=== PATIENT | male | born 1945 | race Caucasian/White ===

== ENCOUNTER → 2018-03-21 13:15 | Outpatient (CLI) | payer MEDICARE, OTHER, SELFPAY | PROVIDERS: Visit Provider Physician Assistant | DX: S41.101A Unspecified open wound of right upper arm, initial encounter (principal) | CPT/HCPCS: 87070; 87205 ==

== ENCOUNTER 2018-11-24 12:20 | Emergency (ER) | payer MEDICARE, OTHER, SELFPAY ==
[2018-11-24] VITALS (7 sets, daily range): BP systolic 136–172; BP diastolic 82–97; PULSE 63–75; RESP 10–20; TEMP 36.6; O2SAT 94–99; BMI 30.8
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
[2018-11-24 13:02] LABS: Add Manual Diff / Slide Review NO; Basophils Absolute Auto 0 /uL (0-100); Basophils Percent Auto 0.5 % (0-2); Eosinophils Absolute Auto 300 /uL (0-450); Eosinophils Percent Auto 3.8 % (2-4); Hemoglobin 18.4 g/dL (13.5-17.5); Lymphocytes Absolute Auto 1700 /uL (1100-4500); Lymphocytes Percent Auto 19.2 % (25-40); Mean Corpuscular HGB Conc 35.5 % (30-36); Mean Corpuscular Hemoglobin 33.1 PG (26-34); Mean Corpuscular Volume 93.4 fL (80-100); Monocytes Absolute Auto 800 /uL (0-900); Monocytes Percent Auto 8.9 % (3-14); Neutrophils Absolute Auto 6100 /uL (1500-7000); Neutrophils Percent Auto 67.6 % (50-75); Platelet Count 309 X10^3/uL (150-400); Red Blood Cell Count 5.57 X10^6/uL (4.5-5.9); Red Cell Distribution Width 15.8 % (11.6-14.8); White Blood Cell Count 9.1 X10^3/uL (4.5-11.0)
[2018-11-24] MEDS: ALBUTEROL/IPRATROPIUM 3 ML AMPUL INH (13:08)
[2018-11-24 13:32] LABS: B Type Natriuretic Peptide < 100 (<100)
[2018-11-24 13:38] LABS: D Dimer < 200 ng/mL (<230)
[2018-11-24] MEDS: ALBUTEROL 2.5 MG/3 ML NEB (ADULT) INH ×2 (13:39→13:53)
[2018-11-24 13:41] LABS: Alanine Aminotransferase 65 IU/L (21-72); Albumin 4.2 g/dL (3.5-5.0); Albumin Globulin Ratio 1.3 (1.0-2.8); Alkaline Phosphatase 98 U/L (38-126); Aspartate Aminotransferase 86 IU/L (17-59); BUN Creatinine Ratio 13.8 (6-22); Bilirubin Total 1.1 mg/dL (0.2-1.3); Blood Urea Nitrogen 11 mg/dL (9-20); Calcium 9.3 mg/dL (8.4-10.2); Carbon Dioxide 28 mmol/L (22-32); Chloride 102 mmol/L (98-107); Estimated Glomerular Filt Rate > 60.0 mL/min (>60); Globulin 3.2 g/dL (1.7-4.1); Glucose 107 mg/dL (80-110); HEMOLYSIS < 15 (0-50); Potassium 5.3 mmol/L (3.4-5.1); Sodium 138 mmol/L (137-145); Total Protein 7.4 g/dL (6.3-8.2)
[2018-11-24 13:42] LABS: Creatine Kinase 86 U/L (55-170)
[2018-11-24 13:53] LABS: Troponin I < 0.012 ng/mL (0.01-0.034)
[2018-11-24] MEDS: methylPREDNISolone 125 MG/2 ML VIAL IV (14:02)
--- NOTE | 2018-11-24 14:56 | DI.RAD.S_ITS ---
PROCEDURE: XR CHEST 1V INDICATIONS: short of breath TECHNIQUE: One view of the chest was acquired. COMPARISON: None. FINDINGS: Surgical changes and devices: None. Lungs and pleura: Lungs are clear. No pleural effusions or pneumothorax. Mediastinum: Mediastinal contours appear normal. Heart size is normal. Bones and chest wall: No suspicious bony lesions. Overlying soft tissues appear unremarkable. IMPRESSION: No acute process. Dictated by: Tacho Armstrong M.D. on 11/24/2018 at 15:25 Approved by: Tacho Armstrong M.D. on 11/24/2018 at 15:26
== END 2018-11-24 15:29 | disposition home or self-care (01) ==
PROVIDERS: Emergency Provider Emergency Medicine
DX: J44.9 Chronic obstructive pulmonary disease, unspecified (principal); I10 Essential (primary) hypertension
CPT/HCPCS: 36591; 71045; 80053; 82550; 83735; 83880; 84484; 85025; 85379; 93005; 94150; 94640; 96374; 99283; 99285; J2930; J7613

== ENCOUNTER → 2019-01-06 12:39 | Outpatient (CLI) | payer MEDICARE, OTHER, SELFPAY ==
--- NOTE | 2019-01-06 12:42 | DI.RAD.S_ITS ---
PROCEDURE: XR MANDIBLE MIN 4V INDICATIONS: jaw joint pain LEFT SIDE TECHNIQUE: 4 views of the mandible were acquired. COMPARISON: None. FINDINGS: Bones: No fractures or dislocations. No suspicious bony lesions. Soft tissues: Visualized sinuses appear clear. No suspicious soft tissue densities. IMPRESSION: No abnormality found. Dictated by: Lyndon Huang M.D. on 01/06/2019 at 13:34 Approved by: Lyndon Huang M.D. on 01/06/2019 at 13:35
== END ==
PROVIDERS: Visit Provider Nurse Practitioner Family
DX: R68.84 Jaw pain (principal)
CPT/HCPCS: 70110

== ENCOUNTER → 2019-01-06 12:53 | Outpatient (CLI) | payer MEDICARE, OTHER, SELFPAY | PROVIDERS: Visit Provider Nurse Practitioner Family | DX: R68.84 Jaw pain (principal) ==

== ENCOUNTER → 2019-08-30 11:00 | Outpatient (CLI) | payer MEDICARE, OTHER, SELFPAY ==
[2019-08-30 12:40] LABS: Hematocrit 44.5 % (41-53); Hemoglobin 15.7 g/dL (13.5-17.5); Mean Corpuscular HGB Conc 35.3 % (30-36); Mean Corpuscular Volume 96.3 fL (80-100); Platelet Count 230 X10^3/uL (150-400); Red Blood Cell Count 4.62 X10^6/uL (4.5-5.9); Red Cell Distribution Width 14.5 % (11.6-14.8)
[2019-08-30 13:13] LABS: Alanine Aminotransferase 28 IU/L (<50); Albumin 4.3 g/dL (3.5-5.0); Albumin Globulin Ratio 1.5 (1.0-2.8); Alkaline Phosphatase 91 U/L (38-126); Aspartate Aminotransferase 39 IU/L (17-59); Bilirubin Total 0.9 mg/dL (0.2-1.3); Blood Urea Nitrogen 20 mg/dL (9-20); Carbon Dioxide 27 mmol/L (22-32); Chloride 100 mmol/L (98-107); Cholesterol 158 mg/dL (140-199); Estimated Glomerular Filt Rate > 60.0 mL/min (>60); Globulin 2.9 g/dL (1.7-4.1); Glucose 114 mg/dL (80-110); HDL Cholesterol 62 mg/dL (40-60); HEMOLYSIS < 15 (0-50); LDL Cholesterol Calculated 62 mg/dL (<100); Potassium 5.1 mmol/L (3.4-5.1); Sodium 138 mmol/L (137-145); Total Protein 7.2 g/dL (6.3-8.2); Triglycerides 169 mg/dL (35-150)
[2019-08-30 13:42] LABS: Prostate Specific Antigen Scrn 0.902 ng/mL (0.1-4.0)
[2019-08-30 15:25] LABS: Creatinine Urine Random 168.4 mg/dL
[2019-08-30 15:35] LABS: Microalbumi Creatinin Ratio Ur 3.5 ug/mg CR (<30); Microalbumin Urine Random < 0.6 mg/dL (0-1.6)
[2019-08-30 20:46] LABS: Hemoglobin A1C% w Est Avg Glu 5.4 % (4.0-6.0)
== END ==
PROVIDERS: Referring Provider Nurse Practitioner Family
DX: Z12.5 Encounter for screening for malignant neoplasm of prostate (principal); E78.2 Mixed hyperlipidemia; I10 Essential (primary) hypertension; R73.01 Impaired fasting glucose
CPT/HCPCS: 36415; 80053; 80061; 82043; 82570; 83036; 85027; G0103

== ENCOUNTER → 2020-05-22 12:37 | Outpatient (CLI) | payer MEDICARE, OTHER, SELFPAY ==
[2020-05-22 13:10] LABS: Hematocrit 46.6 % (41-53); Hemoglobin 15.5 g/dL (13.5-17.5); Mean Corpuscular HGB Conc 33.4 % (30-36); Mean Corpuscular Hemoglobin 32.8 PG (26-34); Mean Corpuscular Volume 98.3 fL (80-100); Platelet Count 207 X10^3/uL (150-400); Red Blood Cell Count 4.74 X10^6/uL (4.5-5.9); White Blood Cell Count 9.1 X10^3/uL (4.5-11.0)
[2020-05-22 14:06] LABS: BUN Creatinine Ratio 21.1 (6-22); Blood Urea Nitrogen 15 mg/dL (9-20); Carbon Dioxide 29 mmol/L (22-32); Chloride 102 mmol/L (98-107); Estimated Glomerular Filt Rate > 60.0 mL/min (>60); Glucose 135 mg/dL (80-110); HEMOLYSIS < 15 (0-50); Potassium 3.8 mmol/L (3.4-5.1); Sodium 138 mmol/L (137-145)
== END ==
PROVIDERS: PCP Nurse Practitioner Family; Referring Provider Nurse Practitioner Family; Visit Provider Nurse Practitioner Family
DX: I10 Essential (primary) hypertension (principal)
CPT/HCPCS: 36415; 80048; 85027

== ENCOUNTER → 2020-05-23 09:04 | Outpatient (CLI) | payer MEDICARE, OTHER, SELFPAY | PROVIDERS: Visit Provider Nurse Practitioner Family | DX: R73.09 Other abnormal glucose (principal) | CPT/HCPCS: 83036 ==

== ENCOUNTER → 2021-03-19 13:44 | Outpatient (CLI) | payer MEDICARE, OTHER, SELFPAY ==
[2021-03-19 17:15] LABS: Hemoglobin 17.3 g/dL (13.5-17.5); Mean Corpuscular HGB Conc 33.9 % (30-36); Mean Corpuscular Hemoglobin 33.7 PG (26-34); Mean Corpuscular Volume 99.4 fL (80-100); Platelet Count 194 X10^3/uL (150-400); Red Blood Cell Count 5.13 X10^6/uL (4.5-5.9); Red Cell Distribution Width 13.9 % (11.6-14.8); White Blood Cell Count 9.9 X10^3/uL (4.5-11.0)
[2021-03-19 17:57] LABS: Alanine Aminotransferase 31 IU/L (<50); Albumin 4.3 g/dL (3.5-5.0); Albumin Globulin Ratio 1.4 (1.0-2.8); Alkaline Phosphatase 96 U/L (38-126); Aspartate Aminotransferase 59 IU/L (17-59); BUN Creatinine Ratio 16.1 (6-22); Bilirubin Total 1.3 mg/dL (0.2-1.3); Blood Urea Nitrogen 10 mg/dL (9-20); Calcium 9.4 mg/dL (8.4-10.2); Carbon Dioxide 30 mmol/L (22-32); Chloride 97 mmol/L (98-107); Cholesterol 172 mg/dL (140-199); Estimated Glomerular Filt Rate > 60.0 mL/min (>60); Glucose 93 mg/dL (80-110); HDL Cholesterol 94 mg/dL (40-60); HEMOLYSIS < 15 (0-50); LDL Cholesterol Calculated 54 mg/dL (<100); Potassium 3.8 mmol/L (3.4-5.1); Sodium 136 mmol/L (137-145); Total Protein 7.3 g/dL (6.3-8.2); Triglycerides 121 mg/dL (35-150); Uric Acid 6.4 mg/dL (3.5-8.5)
[2021-03-19 18:29] LABS: TSH w/ Reflex to FT4 4.37 uIU/mL (0.47-4.68)
== END ==
PROVIDERS: PCP Nurse Practitioner Family; Referring Provider Nurse Practitioner Family; Visit Provider Nurse Practitioner Family
DX: Z00.00 Encounter for general adult medical examination without abnormal findings (principal); I10 Essential (primary) hypertension; M10.9 Gout, unspecified; E78.2 Mixed hyperlipidemia; R63.4 Abnormal weight loss
CPT/HCPCS: 36415; 80053; 80061; 84443; 84550; 85027

== ENCOUNTER → 2021-03-20 13:09 | Outpatient (CLI) | payer MEDICARE, OTHER, SELFPAY ==
--- NOTE | 2021-03-20 13:10 | DI.RAD.S_ITS ---
PROCEDURE: XR CHEST 2V INDICATIONS: weight loss TECHNIQUE: 2 views of the chest were acquired. COMPARISON: [facility], CR, XR CHEST 1V, 11/24/2018, 15:02. FINDINGS: Surgical changes and devices: None. Lungs and pleura: Scattered subsegmental scarring and/or atelectasis. No acute consolidation. No pleural effusions or pneumothorax. Mediastinum: Mediastinal contours are normal. Heart size is normal. Bones and chest wall: No suspicious bony abnormalities. Soft tissues appear unremarkable. IMPRESSION: No acute disease. Dictated by: Andres Morel M.D. on 03/20/2021 at 13:31 Approved by: Andres Morel M.D. on 03/20/2021 at 13:32
--- NOTE | 2021-03-20 13:10 | DI.RAD.S_ITS ---
PROCEDURE: XR HIP W PEL IF DONE TOY MIN 4V INDICATIONS: bilateral hip pain TECHNIQUE: AP pelvis with lateral view(s) of the bilateral hip(s). COMPARISON: None. FINDINGS: Bones: No fractures or dislocations. Moderate superior femoroacetabular joint space loss on the right with acetabular spurring and sclerosis. Similar, mild changes on the left. Femoral head shapes are normal. Incidental note is made of severe facet arthropathy in the L5-S1 level in the lumbar spine. Pelvic ring appears intact. No suspicious bony lesions. Soft tissues: The visualized bowel gas pattern is normal. No suspicious soft tissue calcifications. Moderate atherosclerotic calcification. IMPRESSION: 1. 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 Dictated by: Joy Mccullough M.D. on 03/20/2021 at 15:02 Approved by: Joy Mccullough M.D. on 03/20/2021 at 15:04
== END ==
PROVIDERS: PCP Nurse Practitioner Family; Referring Provider Nurse Practitioner Family; Visit Provider Nurse Practitioner Family
DX: J44.9 Chronic obstructive pulmonary disease, unspecified (principal); M25.551 Pain in right hip; M25.552 Pain in left hip; R63.4 Abnormal weight loss; M16.0 Bilateral primary osteoarthritis of hip
CPT/HCPCS: 71046; 73522

== ENCOUNTER → 2021-08-05 14:53 | Outpatient (CLI) | payer MEDICARE, OTHER, SELFPAY ==
[2021-08-05 15:57] LABS: Alanine Aminotransferase 34 IU/L (<50); Albumin 4.3 g/dL (3.5-5.0); Albumin Globulin Ratio 1.5 (1.0-2.8); Alkaline Phosphatase 78 U/L (38-126); Aspartate Aminotransferase 50 IU/L (17-59); BUN Creatinine Ratio 16.2 (6-22); Bilirubin Total 1.2 mg/dL (0.2-1.3); Blood Urea Nitrogen 11 mg/dL (9-20); Calcium 9.7 mg/dL (8.4-10.2); Carbon Dioxide 33 mmol/L (22-32); Chloride 99 mmol/L (98-107); Estimated Glomerular Filt Rate > 60.0 mL/min (>60); Globulin 2.9 g/dL (1.7-4.1); Glucose 110 mg/dL (80-110); HEMOLYSIS 18 (0-50); Potassium 4.4 mmol/L (3.4-5.1); Sodium 138 mmol/L (137-145); Total Protein 7.2 g/dL (6.3-8.2)
[2021-08-05 16:26] LABS: TSH w/ Reflex to FT4 3.64 uIU/mL (0.47-4.68)
[2021-08-05 17:18] LABS: Add Manual Diff / Slide Review NO; Basophils Absolute Auto 0 /uL (0-100); Basophils Percent Auto 0.6 % (0-2); Eosinophils Absolute Auto 100 /uL (0-450); Eosinophils Percent Auto 0.9 % (2-4); Hematocrit 50.4 % (41-53); Hemoglobin 17.2 g/dL (13.5-17.5); Lymphocytes Absolute Auto 1600 /uL (1100-4500); Lymphocytes Percent Auto 19.4 % (25-40); Mean Corpuscular HGB Conc 34.1 % (30-36); Mean Corpuscular Hemoglobin 34.7 PG (26-34); Mean Corpuscular Volume 101.6 fL (80-100); Monocytes Absolute Auto 1000 /uL (0-900); Monocytes Percent Auto 12.4 % (3-14); Neutrophils Absolute Auto 5600 /uL (1500-7000); Neutrophils Percent Auto 66.7 % (50-75); Platelet Count 186 X10^3/uL (150-400); Red Blood Cell Count 4.96 X10^6/uL (4.5-5.9); Red Cell Distribution Width 14.1 % (11.6-14.8); White Blood Cell Count 8.5 X10^3/uL (4.5-11.0)
== END ==
PROVIDERS: PCP Nurse Practitioner Family; Referring Provider Family Medicine; Visit Provider Family Medicine
DX: I48.92 Unspecified atrial flutter (principal); R00.2 Palpitations; R42 Dizziness and giddiness
CPT/HCPCS: 36415; 80053; 84443; 85025

== ENCOUNTER → 2021-12-29 08:41 | Outpatient (CLI) | payer MEDICARE, OTHER, SELFPAY ==
--- NOTE | 2021-12-29 08:43 | DI.ECHO.S_ITS ---
[facility]---------+ [facility] +---------+ : : [id number] : : : : [id number] : : : : Phone: [phone] Echocardiogram Report + + :Name: JENA PEMBERTON Study Date: 12/29/2021 Height: 73 in : :[facility] ReadingLocation: Weight: 240 lb : : Gender: Male BSA: 2.3 m2 : :: 1945 Age: 76 yrs BP: 128/80 mmHg: :Reason For Study: Arrhythmia : :Ordering Physician: : :CAMILLE ANDERSON Performed By: Bladimir Walker : :Referring: CAMILLE ANDERSON : + + Interpretation Summary The ejection fraction is estimated to be 55-60%. Unable to grade diastolic function. The right ventricle is normal in size and function. No significant valvular abnormalities. Unable to estimate PASP. Procedure: A two-dimensional transthoracic echocardiogram with color flow and Doppler was performed. The study quality was technically adequate. There is no prior echocardiogram noted for this patient. Left Ventricle: The left ventricle is normal in size and wall thickness. Left ventricular systolic function is normal. The ejection fraction is estimated to be 55-60%. There are no focal wall motion abnormalities. Diastolic function could not be accurately assessed due to unobtainable data. Right Ventricle: The right ventricle is normal in size and function. Atria: Both atria are normal in size. The interatrial septum grossly appears intact with no obvious evidence for an atrial septal defect. Mitral Valve: There is mild mitral annular calcification. There is no mitral regurgitation noted. Aortic Valve: The aortic valve is normal in structure and function. There is no aortic valve stenosis. No aortic regurgitation is present. Tricuspid Valve: The tricuspid valve is normal in structure and function. There is a trace or physiologic amount of tricuspid regurgitation. Pulmonary artery pressures cannot be estimated because of the lack of a measurable TR jet velocity. Pulmonic Valve: The pulmonic valve is not well seen, but is grossly normal. There is no pulmonic valvular regurgitation. Great Vessels: The aortic root is normal size. The dimensions of the ascending aorta are normal. The IVC is of normal diameter and collapses greater than 50% with a sniff. This suggests a low right atrial pressure of 3 mm Hg. Pericardium/ Pleura There is no pericardial effusion. There is no pleural effusion. MMode/2D Measurements & Calculations LVIDd: 4.4 cm LVOT diam: 2.1 cm LVIDs: 2.9 cm Ao root diam: 3.7 cm FS: 34.1 % asc Aorta Diam: 3.4 cm IVSd: 1.1 cm LVPWd: 0.90 cm LV amador. diameter/BSA (cm/m^2): 1.9 LV sys. diameter/BSA (cm/m^2): 1.2 LA dimension: 3.6 cm RA long axis: 5.3 cm LA A2 area: 17.9 cm2 LA A4 area: 23.7 cm2 LA length (vol): 5.4 cm LA vol: 66.2 ml LA vol index: 28.5 ml/m2 TAPSE_phl: 2.6 cm Doppler Measurements & Calculations Ao V2 max: 148.0 cm/sec LVOT Max Jimmy: 114.0 cm/sec Ao V2 mean: 107.0 cm/sec LV V1 max P.2 mmHg Ao max P.0 mmHg LV V1 VTI: 23.2 cm Ao mean P.0 mmHg GIULIA(I,D): 2.8 cm2 Ao V2 VTI: 28.8 cm GIULIA(V,D): 2.7 cm2 sev ratio: 0.81 GIULIA indexed to BSA (cm^2/m^2): 1.2 MV E max jimmy: 105.0 cm/sec SV(LVOT): 80.4 ml MV A max jimmy: 102.0 cm/sec MV E/A: 1.0 MV dec time: 0.25 sec AV VR_phl: 0.77 MV P1/2t-pr_phl: 72.0 msec GIULIA(VTI)/BSA_phl: 1.2 Reading Physician:02:50 PM
== END ==
PROVIDERS: PCP Nurse Practitioner Family; Referring Provider Internal Medicine Cardiovascular Disease; Visit Provider Internal Medicine Cardiovascular Disease
DX: I48.92 Unspecified atrial flutter (principal); R42 Dizziness and giddiness; R00.2 Palpitations
CPT/HCPCS: 93306

== ENCOUNTER 2022-02-21 21:06 | Emergency (ER) | payer MEDICARE, OTHER, SELFPAY ==
[2022-02-21 21:46] VITALS: BP 153/82; PULSE 81; RESP 17; TEMP 36.7; O2SAT 94; BMI 31.6
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
--- NOTE | 2022-02-21 23:39 | ED_ITS ---
HPI - Recheck/Abnormal Lab/Rx <Vik Murguia MD - Last Filed: 02/22/22 18:04> General Chief Complaint: Recheck/Abnormal Lab/Rx Stated Complaint: Large hematoma One day Post ablation procedure, Time Seen by Provider: 02/21/22 23:33 Source: patient Mode of arrival: Ambulatory History of Present Illness HPI narrative: Patient here for swelling and pain to the right groin. Patient is postop day 1 status post catheterization for atrial flutter by Dr. Rivero at [facility]. Patient was observed overnight. At their hospital and swelling did improve. Discharge this afternoon. However when he got home pain and swelling worsened. No numbness or tingling. Related Data Home Medications Medication Instructions Recorded Confirmed ipratropium 20 mcg-albuterol 100 1 puff inhalation QID PRN 11/29/18 08/05/21 mcg/actuation mist for inhalation (Combivent Respimat) propranolol 20 mg tablet 20 mg PO BID PRN 11/29/18 08/05/21 Previous Rx's Medication Instructions Recorded sildenafil 100 mg tablet (Viagra) 100 mg PO DAILY PRN erectile 11/29/18 dysfunction #3 tabs varicella-zoster glycoE [id number] 50 mcg IM ONCE #1 ea 11/29/18 adj(PF) 50 mcg/0.5 mL IM susp, kit (Shingrix (PF)) blood pressure cuff #1 ea 02/22/20 clindamycin phosphate 1 % topical 1 applictn topical DAILY #30 grams 02/22/20 gel atorvastatin 10 mg tablet 10 mg PO DAILY #90 tabs 03/19/21 budesonide-formoterol HFA 160 1 puff inhalation DAILY PRN copd 03/19/21 mcg-4.5 mcg/actuation aerosol #10.2 grams inhaler (Symbicort) fluticasone propionate 50 2 spray intranasal DAILY #9.9 mL 03/19/21 mcg/actuation nasal spray,suspension (Flonase Allergy Relief) lisinopril 5 mg tablet 5 mg PO DAILY #90 tabs 03/19/21 metoprolol succinate 25 mg 25 mg PO DAILY #30 tabs 08/05/21 tablet,extended release 24 hr albuterol sulfate 90 mcg/actuation See Rx Instructions .Route 02/09/22 aerosol inhaler .COMPLEX #8.5 grams Allergies Allergy/AdvReac Type Severity Reaction Status Date / Time pollen extracts Allergy Severe Difficulty Verified 08/05/21 14:03 Breathing cat dander Allergy Intermediate asthma Verified 08/05/21 14:03 yellow jacket Allergy Intermediate rash on Uncoded 08/05/21 14:03 neck Review of Systems <Vik Murguia MD - Last Filed: 02/22/22 18:04> Review of Systems Narrative: GENERAL: Denies chills, fatigue, malaise, fever, sweats. HEENT: Denies sinus pain, ear pain, sore throat RESPIRATORY: Denies dyspnea, cough CARDIOVASCULAR: Denies chest pain, palpitations GASTROINTESTINAL: Denies nausea, vomiting, abdominal pain : Denies dysuria, frequency, hematuria MUSCULOSKELETAL: denies muscle or bony pain SKIN: Denies rash, skin lesions NEUROLOGIC: Denies weakness, numbness ROS Unobtainable: All systems reviewed & are unremarkable except as noted in HPI and below Patient History <Vik Murguia MD - Last Filed: 02/22/22 18:04> Medical History Atrial flutter Bilateral hip pain (11/2019) COPD (chronic obstructive pulmonary disease) Food aversion (11/2019) Hyperactive gag reflex (11/2019) Hypertension Mixed hyperlipidemia Numbness Perioral dermatitis Red eye Runny nose (11/2019) Seasonal allergies Weight loss Social History Smoking Status: Former smoker Tobacco: How many years used: 48 second hand exposure: Yes (Dad smoked) alcohol intake: current (a couple glasses of wine every night) substance use type: marijuana (vape, couple times a week) Smoking Status: Former smoker alcohol intake frequency: 3 or more drinks per day Substance Use Type: marijuana Exam <Vik Murguia MD - Last Filed: 02/22/22 18:04> Narrative Exam Narrative: GENERAL: in no distress, not toxic not dyspneic HEAD: Normocephalic. EYES: Pupils equal round No scleral icterus. ENT: Mucous membranes moist. NECK: Trachea midline. CARDIOVASCULAR: Regular rate and rhythm without murmurs RESPIRATORY: Clear to auscultation. Breath sounds equal bilaterally. No wheezes, rales, or rhonchi. GASTROINTESTINAL: Abdomen soft, non-tender EXTREMITIES: Examination right lower extremity. Foot warm soft and pink. Strong pedal pulse. Foot light touch intact in toes. Large palpable hematoma in the right groin. Tender to touch. BACK: No flank tenderness. NEURO: AOx4. SKIN: Warm and dry PSYCH: Not anxious, is cooperative Initial Vital Signs Initial Vital Signs: Vital Signs Temperature 98.0 F 02/21/22 21:46 Pulse Rate 81 02/21/22 21:46 Respiratory Rate 17 02/21/22 21:46 Blood Pressure 153/82 H 02/21/22 21:46 Pulse Oximetry 94 02/21/22 21:46 Oxygen Delivery Method 02/21/22 21:46 <Agnieszka Lopez DO - Last Filed: 02/22/22 13:52> Initial Vital Signs Initial Vital Signs: Vital Signs Temperature 98.0 F 02/21/22 21:46 Pulse Rate 81 02/21/22 21:46 Respiratory Rate 17 02/21/22 21:46 Blood Pressure 153/82 H 02/21/22 21:46 Pulse Oximetry 94 02/21/22 21:46 Oxygen Delivery Method 02/21/22 21:46 Course <Vik Murguia MD - Last Filed: 02/22/22 18:04> Course Course Narrative: No new issues during course of stay February 22, 2022 at 7:00 a.m.. Sign out to Dr. Lopez, patient on waiting list for [facility]. For continuity of care. He is hemodynamically stable. 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 Decision to Admit Date: 02/21/22 Decision to Admit time: 23:41 Orders Ordered: ED Orders 02/22/22 09:50 US arterial duplex LE RT Stat 02/22/22 11:18 CBC Auto Diff [Complete Blood Count AUTO DIFF] Stat CMP [Comprehensive Metabolic Panel] Stat Discontinued Medications Hydromorphone HCl (Hydromorphone 1 Mg Inj) 1 mg IV NOW ONE Stop: 02/22/22 10:00 Last Admin: 02/22/22 10:02 Dose: 1 mg Documented By: KENDRA Hydromorphone HCl (Hydromorphone 1 Mg Inj) 1 mg IV NOW ONE Stop: 02/22/22 10:30 Last Admin: 02/22/22 10:42 Dose: 1 mg Documented By: KENDRA Midazolam HCl (Midazolam 2 Mg/2 Ml Vial) 2 mg IV NOW ONE Stop: 02/22/22 10:30 Last Admin: 02/22/22 10:48 Dose: Not Given Documented By: KENDRA Reevaluation(s) Reevaluation #1: Reviewed with patient and family. They understand need to transfer back to [facility] Time: 23:42 Consultations Consultation #1: Spoke with Cardiology Dr. Rodriguez, patient will need to be transferred back to [facility] for interventional radiology, regarding emergency department management no intervention indicated this time. No compression packing. Time: 23:42 Vital Signs Vital signs: Vital Signs - 8 hr 02/22/22 10:28 02/22/22 10:29 02/22/22 10:29 Pulse Rate 73 72 Respiratory Rate 13 12 Blood Pressure 138/69 Pulse Oximetry 95 95 Oxygen Delivery Method Oxygen Flow Rate 02/22/22 10:30 02/22/22 10:30 02/22/22 10:45 Pulse Rate 73 78 Respiratory Rate 14 12 Blood Pressure 139/64 Pulse Oximetry 95 96 Oxygen Delivery Method Room Air Oxygen Flow Rate 1.5 02/22/22 11:00 02/22/22 11:00 02/22/22 11:15 Pulse Rate 67 Respiratory Rate 11 L Blood Pressure 131/63 132/67 Pulse Oximetry 91 Oxygen Delivery Method Oxygen Flow Rate 02/22/22 11:15 02/22/22 11:30 02/22/22 11:30 Pulse Rate 76 78 Respiratory Rate 19 17 Blood Pressure 135/67 Pulse Oximetry 98 95 Oxygen Delivery Method Nasal Cannula Oxygen Flow Rate 1.5 02/22/22 11:45 02/22/22 11:45 02/22/22 12:00 Pulse Rate 71 Respiratory Rate 16 Blood Pressure 111/59 L 113/73 Pulse Oximetry 94 Oxygen Delivery Method Oxygen Flow Rate 02/22/22 12:00 02/22/22 12:15 02/22/22 12:15 Pulse Rate 84 79 Respiratory Rate 27 H 21 Blood Pressure 114/60 Pulse Oximetry 94 96 Oxygen Delivery Method Nasal Cannula Oxygen Flow Rate 1.5 02/22/22 12:30 02/22/22 12:30 02/22/22 12:45 Pulse Rate 87 Respiratory Rate 21 Blood Pressure 116/66 126/70 Pulse Oximetry 95 Oxygen Delivery Method Oxygen Flow Rate 02/22/22 12:45 Pulse Rate 84 Respiratory Rate 15 Blood Pressure Pulse Oximetry 92 Oxygen Delivery Method Nasal Cannula Oxygen Flow Rate 1.5 <Agnieszka Lopez, DO - Last Filed: 02/22/22 13:52> Orders Ordered: ED Orders 02/22/22 09:50 US arterial duplex LE RT Stat 02/22/22 11:18 CBC Auto Diff [Complete Blood Count AUTO DIFF] Stat CMP [Comprehensive Metabolic Panel] Stat Discontinued Medications Hydromorphone HCl (Hydromorphone 1 Mg Inj) 1 mg IV NOW ONE Stop: 02/22/22 10:00 Last Admin: 02/22/22 10:02 Dose: 1 mg Documented By: KENDRA Hydromorphone HCl (Hydromorphone 1 Mg Inj) 1 mg IV NOW ONE Stop: 02/22/22 10:30 Last Admin: 02/22/22 10:42 Dose: 1 mg Documented By: KENDRA Midazolam HCl (Midazolam 2 Mg/2 Ml Vial) 2 mg IV NOW ONE Stop: 02/22/22 10:30 Last Admin: 02/22/22 10:48 Dose: Not Given Documented By: KENDRA Vital Signs Vital signs: Vital Signs - 8 hr 02/22/22 10:28 02/22/22 10:29 02/22/22 10:29 Pulse Rate 73 72 Respiratory Rate 13 12 Blood Pressure 138/69 Pulse Oximetry 95 95 Oxygen Delivery Method Oxygen Flow Rate 02/22/22 10:30 02/22/22 10:30 02/22/22 10:45 Pulse Rate 73 78 Respiratory Rate 14 12 Blood Pressure 139/64 Pulse Oximetry 95 96 Oxygen Delivery Method Room Air Oxygen Flow Rate 1.5 02/22/22 11:00 02/22/22 11:00 02/22/22 11:15 Pulse Rate 67 Respiratory Rate 11 L Blood Pressure 131/63 132/67 Pulse Oximetry 91 Oxygen Delivery Method Oxygen Flow Rate 02/22/22 11:15 02/22/22 11:30 02/22/22 11:30 Pulse Rate 76 78 Respiratory Rate 19 17 Blood Pressure 135/67 Pulse Oximetry 98 95 Oxygen Delivery Method Nasal Cannula Oxygen Flow Rate 1.5 02/22/22 11:45 02/22/22 11:45 02/22/22 12:00 Pulse Rate 71 Respiratory Rate 16 Blood Pressure 111/59 L 113/73 Pulse Oximetry 94 Oxygen Delivery Method Oxygen Flow Rate 02/22/22 12:00 02/22/22 12:15 02/22/22 12:15 Pulse Rate 84 79 Respiratory Rate 27 H 21 Blood Pressure 114/60 Pulse Oximetry 94 96 Oxygen Delivery Method Nasal Cannula Oxygen Flow Rate 1.5 02/22/22 12:30 02/22/22 12:30 02/22/22 12:45 Pulse Rate 87 Respiratory Rate 21 Blood Pressure 116/66 126/70 Pulse Oximetry 95 Oxygen Delivery Method Oxygen Flow Rate 02/22/22 12:45 Pulse Rate 84 Respiratory Rate 15 Blood Pressure Pulse Oximetry 92 Oxygen Delivery Method Nasal Cannula Oxygen Flow Rate 1.5 MDM - Recheck/Abnormal Lab/Rx <Vik Murguia MD - Last Filed: 02/22/22 18:04> Differential Diagnosis Differential diagnosis: Likely encounter for wound recheck and other (Pseudoaneurysm/aneurysm) Lab Data Result diagrams: 02/22/22 11:18 02/22/22 11:18 Labs: Lab Results 02/21/22 02/21/22 02/21/22 Range/Units 23:41 23:41 23:41 WBC 11.4 H (4.5-11.0) X10^3/uL RBC 3.89 L (4.5-5.9) X10^6/uL Hgb 12.9 L (13.5-17.5) g/dL Hct 37.8 L (41-53) % MCV 97.2 (80-100) fL MCH 33.1 (26-34) PG MCHC 34.1 (30-36) % RDW 13.7 (11.6-14.8) % Plt Count 164 (150-400) X10^3/uL Neut % (Auto) 71.3 (50-75) % Lymph % (Auto) 19.8 L (25-40) % [place] % (Auto) 8.3 (3-14) % Eos % (Auto) 0.4 L (2-4) % Baso % (Auto) 0.2 (0-2) % Neut # (Auto) 8100 H (0800-5936) /uL Lymph # (Auto) 2200 (8954-0667) /uL [place] # (Auto) 900 (0-900) /uL Eos # (Auto) 0 (0-450) /uL Baso # (Auto) 0 (0-100) /uL PT 18.0 H (10.1-12.7) SECONDS INR 1.6 H (0.9-1.3) APTT 32 (26.4-36.2) SECONDS Sodium 136 L (137-145) mmol/L Potassium 3.5 (3.4-5.1) mmol/L Chloride 102 (98-107) mmol/L Carbon Dioxide 25 (22-32) mmol/L BUN 15 (9-20) mg/dL Creatinine 0.68 (0.66-1.25) mg/dL Estimated GFR > 60 (>60) mL/min BUN/Creatinine Ratio 22.1 H (6-22) Glucose 124 H (80-110) mg/dL Calcium 8.6 (8.4-10.2) mg/dL Total Bilirubin 0.9 (0.2-1.3) mg/dL AST 38 (17-59) IU/L ALT 19 (<50) IU/L Alkaline Phosphatase 71 (38-126) U/L Total Protein 6.6 (6.3-8.2) g/dL Albumin 3.9 (3.5-5.0) g/dL Globulin 2.7 (1.7-4.1) g/dL Albumin/Globulin Ratio 1.4 (1.0-2.8) SARS-CoV-2 (PCR) (Negative) 02/21/22 02/22/22 02/22/22 Range/Units 23:45 11:18 11:18 WBC 9.1 (4.5-11.0) X10^3/uL RBC 3.39 L (4.5-5.9) X10^6/uL Hgb 11.6 L (13.5-17.5) g/dL Hct 33.3 L (41-53) % MCV 98.1 (80-100) fL MCH 34.2 H (26-34) PG MCHC 34.8 (30-36) % RDW 13.9 (11.6-14.8) % Plt Count 153 (150-400) X10^3/uL Neut % (Auto) 72.0 (50-75) % Lymph % (Auto) 16.7 L (25-40) % [place] % (Auto) 10.0 (3-14) % Eos % (Auto) 0.9 L (2-4) % Baso % (Auto) 0.4 (0-2) % Neut # (Auto) 6600 (0923-6174) /uL Lymph # (Auto) 1500 (0165-0898) /uL [place] # (Auto) 900 (0-900) /uL Eos # (Auto) 100 (0-450) /uL Baso # (Auto) 0 (0-100) /uL PT (10.1-12.7) SECONDS INR (0.9-1.3) APTT (26.4-36.2) SECONDS Sodium 136 L (137-145) mmol/L Potassium 3.6 (3.4-5.1) mmol/L Chloride 101 (98-107) mmol/L Carbon Dioxide 32 (22-32) mmol/L BUN 12 (9-20) mg/dL Creatinine 0.60 L (0.66-1.25) mg/dL Estimated GFR > 60 (>60) mL/min BUN/Creatinine Ratio 20.0 (6-22) Glucose 110 (80-110) mg/dL Calcium 8.3 L (8.4-10.2) mg/dL Total Bilirubin 1.0 (0.2-1.3) mg/dL AST 32 (17-59) IU/L ALT 16 (<50) IU/L Alkaline Phosphatase 68 (38-126) U/L Total Protein 6.0 L (6.3-8.2) g/dL Albumin 3.4 L (3.5-5.0) g/dL Globulin 2.6 (1.7-4.1) g/dL Albumin/Globulin Ratio 1.3 (1.0-2.8) SARS-CoV-2 (PCR) Negative (Negative) Imaging Data Extremity x-ray #1: Radiologist's Impression: [address] [id number] ReportSigned Patient: Yovany Munguia [facility]#: [id number]: 7Acct:[id number]/Sex: 76 / MDate of Service: 02/21/22Loc: EDAccession Number: [id number] Procedure: US arterial duplex LE RT Ordering Provider: Vik Murguia MD PROCEDURE: US ARTERIAL DUPLEX LE RT INDICATIONS: S/P ablation; increasing R groin hematoma TECHNIQUE: Color and pulse Doppler interrogation was performed of the right lower extremity arterial system, with image documentation. COMPARISON: None. FINDINGS: Right common femoral artery pseudoaneurysm measuring 9.1 x 4.0 x 7.3 cm. IMPRESSION: Large right common femoral artery pseudoaneurysm. Dictated by: Addi Pierre M.D. on 02/21/2022 at 23:06 Approved by: Addi Pierre M.D. on 02/21/2022 at 23:07 MDM Narrative Medical decision making narrative: Appropriate for transfer to [facility] for continuity of care and for Interventional Radiology as requested by Cardiology on-call. <Agnieszka Lopez, - Last Filed: 02/22/22 13:52> Lab Data Labs: Lab Results 02/21/22 02/21/22 02/21/22 Range/Units 23:41 23:41 23:41 WBC 11.4 H (4.5-11.0) X10^3/uL RBC 3.89 L (4.5-5.9) X10^6/uL Hgb 12.9 L (13.5-17.5) g/dL Hct 37.8 L (41-53) % MCV 97.2 (80-100) fL MCH 33.1 (26-34) PG MCHC 34.1 (30-36) % RDW 13.7 (11.6-14.8) % Plt Count 164 (150-400) X10^3/uL Neut % (Auto) 71.3 (50-75) % Lymph % (Auto) 19.8 L (25-40) % [place] % (Auto) 8.3 (3-14) % Eos % (Auto) 0.4 L (2-4) % Baso % (Auto) 0.2 (0-2) % Neut # (Auto) 8100 H (4844-7335) /uL Lymph # (Auto) 2200 (8307-6953) /uL [place] # (Auto) 900 (0-900) /uL Eos # (Auto) 0 (0-450) /uL Baso # (Auto) 0 (0-100) /uL PT 18.0 H (10.1-12.7) SECONDS INR 1.6 H (0.9-1.3) APTT 32 (26.4-36.2) SECONDS Sodium 136 L (137-145) mmol/L Potassium 3.5 (3.4-5.1) mmol/L Chloride 102 (98-107) mmol/L Carbon Dioxide 25 (22-32) mmol/L BUN 15 (9-20) mg/dL Creatinine 0.68 (0.66-1.25) mg/dL Estimated GFR > 60 (>60) mL/min BUN/Creatinine Ratio 22.1 H (6-22) Glucose 124 H (80-110) mg/dL Calcium 8.6 (8.4-10.2) mg/dL Total Bilirubin 0.9 (0.2-1.3) mg/dL AST 38 (17-59) IU/L ALT 19 (<50) IU/L Alkaline Phosphatase 71 (38-126) U/L Total Protein 6.6 (6.3-8.2) g/dL Albumin 3.9 (3.5-5.0) g/dL Globulin 2.7 (1.7-4.1) g/dL Albumin/Globulin Ratio 1.4 (1.0-2.8) SARS-CoV-2 (PCR) (Negative) 02/21/22 02/22/22 02/22/22 Range/Units 23:45 11:18 11:18 WBC 9.1 (4.5-11.0) X10^3/uL RBC 3.39 L (4.5-5.9) X10^6/uL Hgb 11.6 L (13.5-17.5) g/dL Hct 33.3 L (41-53) % MCV 98.1 (80-100) fL MCH 34.2 H (26-34) PG MCHC 34.8 (30-36) % RDW 13.9 (11.6-14.8) % Plt Count 153 (150-400) X10^3/uL Neut % (Auto) 72.0 (50-75) % Lymph % (Auto) 16.7 L (25-40) % [place] % (Auto) 10.0 (3-14) % Eos % (Auto) 0.9 L (2-4) % Baso % (Auto) 0.4 (0-2) % Neut # (Auto) 6600 (1818-6085) /uL Lymph # (Auto) 1500 (2578-2898) /uL [place] # (Auto) 900 (0-900) /uL Eos # (Auto) 100 (0-450) /uL Baso # (Auto) 0 (0-100) /uL PT (10.1-12.7) SECONDS INR (0.9-1.3) APTT (26.4-36.2) SECONDS Sodium 136 L (137-145) mmol/L Potassium 3.6 (3.4-5.1) mmol/L Chloride 101 (98-107) mmol/L Carbon Dioxide 32 (22-32) mmol/L BUN 12 (9-20) mg/dL Creatinine 0.60 L (0.66-1.25) mg/dL Estimated GFR > 60 (>60) mL/min BUN/Creatinine Ratio 20.0 (6-22) Glucose 110 (80-110) mg/dL Calcium 8.3 L (8.4-10.2) mg/dL Total Bilirubin 1.0 (0.2-1.3) mg/dL AST 32 (17-59) IU/L ALT 16 (<50) IU/L Alkaline Phosphatase 68 (38-126) U/L Total Protein 6.0 L (6.3-8.2) g/dL Albumin 3.4 L (3.5-5.0) g/dL Globulin 2.6 (1.7-4.1) g/dL Albumin/Globulin Ratio 1.3 (1.0-2.8) SARS-CoV-2 (PCR) Negative (Negative) Imaging Data US arterial: Radiologist's Impression: Ultrasound Report Signed Patient: Yovany Munguia MR#: [id number] : 1945 Acct:[id number] Age/Sex: 76 / M Date of Service: 02/22/22 Loc: ED Accession Number: [id number] ?? Procedure: US arterial duplex LE RT Ordering Provider: Agnieszka Lopez D.O. PROCEDURE:? US ARTERIAL DUPLEX LE RT ? INDICATIONS:? PSEUDOANEURYSM ? TECHNIQUE:? Color and pulse Doppler interrogation was performed of the right lower extremity arterial system, with image documentation.? ? COMPARISON:? [facility], , US ARTERIAL DUPLEX LE RT, 02/21/2022, 22:30. ? FINDINGS:? Multiple grayscale and color Doppler images of the right inguinal region were acquired to evaluate for known pseudoaneurysm of the proximal right common femoral artery at site of prior intervention.? Pseudoaneurysm sac measures approximately 10.9 x 5.2 x 7.6 cm.? Neck of the aneurysm measures 6 mm in diameter. 2 attempts were made at directly visualized compression of the pseudoaneurysm neck without ability to close the neck.. ? ? IMPRESSION:? Unsuccessful attempt to close pseudoaneurysm neck of the proximal right common femoral artery using image directed compression.? Given size of the pseudoaneurysm neck of approximately 6 mm, recommend further evaluation by vascular surgery.? This does not meet criteria for thrombin injection. ? Findings were discussed with Dr. Rodriguez of cardiology at 1110 hrs. Findings were also discussed with Dr. Lopez at 1120 hrs. ? Dictated by: Lui De Oliveira M.D. on 02/22/2022 at 11:08 ? ? MDM Narrative Medical decision making narrative: Appropriate for transfer to [facility] for continuity of care and for Interventional Radiology as requested by Cardiology on-call. 02/22/22 LATRELL Patient signed out to me by ,. I have seen evaluated patient myself. 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 Status post ablation for atrial flutter on 02/20/2022. It seems to be expanding swelling and contusion is noted to be far beyond previous permanent marker line. He continues to have a strong distal pedal pulse 0820-discussion with Cardiology Dr. Rodriguez, is aware of worsening aneurysm. He is going to try and work on getting patient over to [facility] however [facility] is currently on divert. 0900-he returns phone call request that front office manager come in apply pressure until it closes, at least try GENERAL: Alert pleasant 76-year-old male CARDIOVASCULAR: peripheral pulses in tact, cap refill <2 sec RESPIRATORY: No respiratory distress, speaks in full sentences without difficulty EXTREMITIES: Normal range of motion, no clubbing or edema. Neurovascularly intact Right groin area expanding hematoma and swelling strong distal pedal pulse is felt and present at the X marked NEUROLOGICAL: Cranial nerves II through XII grossly intact. Normal gait and speech. SKIN: Warm, dry, no petechiae, no rashes or lesions. a/p 1. Pseudo aneurysm status post cardiac catheterization -ideally transfer patient as soon as possible for definitive care -ultrasound come in and apply pressure to help stop model technician at bedside attempted applying significant pressure is unable to close off aneurysm. Patient tolerated procedure very well he was given Dilaudid for pain. [facility] who suggested that if unable to close off aneurysm may need higher level of care with vascular surgery recommended [facility] Patient is actually on list at [facility] and [facility] Unable to close off pseudoaneurysm maximal dilation is 6 mm. This is unlikely to resolve with injection, cardiology recommends transferring patient were cardiovascular is available. 1145-Cardiovascular PA AB will talk to attending Patient accepted at [facility] transport has been arranged. Discharge Plan Departure Patient Disposition: [facility] Clinical Impression: Pseudoaneurysm of femoral artery following procedure Prescriptions: No Action albuterol sulfate 90 mcg/actuation HFA aerosol inhaler See Rx Instructions .ROUTE .COMPLEX Qty: 8.5 0RF Dose Instruction: INHALE 2 PUFFS BY MOUTH EVERY 6 HOURS NEEDED FOR SHORTNESS OF BREATH OR WHEEZING Rx Instructions: INHALE 2 PUFFS BY MOUTH EVERY 6 HOURS NEEDED FOR SHORTNESS OF BREATH OR WHEEZING clindamycin phosphate 1 % gel 1 applictn TOP DAILY Qty: 30 0RF (DME) blood pressure cuff Qty: 1 0RF Rx Instructions: As directed atorvastatin 10 mg tablet 10 mg PO DAILY Qty: 90 3RF Rx Instructions: Take one tablet by mouth daily Symbicort 160-4.5 mcg/actuation HFA aerosol inhaler 1 puff INHALATION DAILY PRN (Reason: copd) Qty: 10.2 3RF fluticasone propionate [Flonase Allergy Relief] 50 mcg/actuation spray,suspension 2 spray NASAL DAILY Qty: 9.9 3RF Rx Instructions: administer into each nostril lisinopril 5 mg tablet 5 mg PO DAILY Qty: 90 3RF propranolol 20 mg tablet 20 mg PO BID PRN Combivent Respimat 20-100 mcg/actuation mist 1 puff INHALATION QID PRN Shingrix (PF) 50 mcg/0.5 mL suspension for reconstitution 50 mcg IM ONCE Qty: 1 0RF Rx Instructions: as a single dose sildenafil [Viagra] 100 mg tablet 100 mg PO DAILY PRN (Reason: erectile dysfunction) Qty: 3 0RF metoprolol succinate 25 mg tablet extended release 24 hr 25 mg PO DAILY Qty: 30 2RF Referrals: Binta Johnson ARNP [Primary Care Provider] -
[2022-02-21 23:56] LABS: Add Manual Diff / Slide Review NO; Basophils Absolute Auto 0 /uL (0-100); Basophils Percent Auto 0.2 % (0-2); Eosinophils Absolute Auto 0 /uL (0-450); Eosinophils Percent Auto 0.4 % (2-4); Hematocrit 37.8 % (41-53); Hemoglobin 12.9 g/dL (13.5-17.5); Lymphocytes Absolute Auto 2200 /uL (1100-4500); Lymphocytes Percent Auto 19.8 % (25-40); Mean Corpuscular HGB Conc 34.1 % (30-36); Mean Corpuscular Hemoglobin 33.1 PG (26-34); Mean Corpuscular Volume 97.2 fL (80-100); Monocytes Absolute Auto 900 /uL (0-900); Monocytes Percent Auto 8.3 % (3-14); Neutrophils Absolute Auto 8100 /uL (1500-7000); Neutrophils Percent Auto 71.3 % (50-75); Platelet Count 164 X10^3/uL (150-400); Red Blood Cell Count 3.89 X10^6/uL (4.5-5.9); Red Cell Distribution Width 13.7 % (11.6-14.8); White Blood Cell Count 11.4 X10^3/uL (4.5-11.0)
[2022-02-22] VITALS (34 sets, daily range): BP systolic 111–161; BP diastolic 55–84; PULSE 64–89; RESP 11–33; O2SAT 90–98
[2022-02-22 00:01] LABS: INR 1.6 (0.9-1.3)
[2022-02-22 00:03] LABS: PTT Partial Thromboplastin Tim 32 SECONDS (26.4-36.2)
[2022-02-22 00:06] LABS: Alanine Aminotransferase 19 IU/L (<50); Albumin 3.9 g/dL (3.5-5.0); Albumin Globulin Ratio 1.4 (1.0-2.8); Alkaline Phosphatase 71 U/L (38-126); Aspartate Aminotransferase 38 IU/L (17-59); BUN Creatinine Ratio 22.1 (6-22); Bilirubin Total 0.9 mg/dL (0.2-1.3); Blood Urea Nitrogen 15 mg/dL (9-20); Calcium 8.6 mg/dL (8.4-10.2); Carbon Dioxide 25 mmol/L (22-32); Chloride 102 mmol/L (98-107); Estimated Glomerular Filt Rate > 60 mL/min (>60); Globulin 2.7 g/dL (1.7-4.1); Glucose 124 mg/dL (80-110); HEMOLYSIS < 15 (0-50); Potassium 3.5 mmol/L (3.4-5.1); Sodium 136 mmol/L (137-145); Total Protein 6.6 g/dL (6.3-8.2)
[2022-02-22 00:15] LABS: COVID19 -Nasal RAPID Negative (Negative)
--- NOTE | 2022-02-22 09:13 | PC.NURSE ---
looked at right groin with Dr. Lopez. large hematoma. has increased in size. hard. painful. pt has good pedal pulses in right foot.
--- NOTE | 2022-02-22 09:50 | DI.US.S_ITS ---
PROCEDURE: US ARTERIAL DUPLEX LE RT INDICATIONS: PSEUDOANEURYSM TECHNIQUE: Color and pulse Doppler interrogation was performed of the right lower extremity arterial system, with image documentation. COMPARISON: [facility], , US ARTERIAL DUPLEX LE RT, 02/21/2022, 22:30. FINDINGS: Multiple grayscale and color Doppler images of the right inguinal region were acquired to evaluate for known pseudoaneurysm of the proximal right common femoral artery at site of prior intervention. Pseudoaneurysm sac measures approximately 10.9 x 5.2 x 7.6 cm. Neck of the aneurysm measures 6 mm in diameter. 2 attempts were made at directly visualized compression of the pseudoaneurysm neck without ability to close the neck.. IMPRESSION: Unsuccessful attempt to close pseudoaneurysm neck of the proximal right common femoral artery using image directed compression. Given size of the pseudoaneurysm neck of approximately 6 mm, recommend further evaluation by vascular surgery. This does not meet criteria for thrombin injection. Findings were discussed with Dr. Rodriguez of cardiology at 1110 hrs. Findings were also discussed with Dr. Lopez at 1120 hrs. Dictated by: Lui De Oliveira M.D. on 02/22/2022 at 11:08 Approved by: Lui De Oliveira M.D. on 02/22/2022 at 11:21
[2022-02-22] MEDS: HYDROMORPHONE 1 MG INJ IV ×2 (10:02→10:42)
[2022-02-22 11:29] LABS: Add Manual Diff / Slide Review NO; Basophils Absolute Auto 0 /uL (0-100); Basophils Percent Auto 0.4 % (0-2); Eosinophils Absolute Auto 100 /uL (0-450); Eosinophils Percent Auto 0.9 % (2-4); Hematocrit 33.3 % (41-53); Hemoglobin 11.6 g/dL (13.5-17.5); Lymphocytes Absolute Auto 1500 /uL (1100-4500); Lymphocytes Percent Auto 16.7 % (25-40); Mean Corpuscular HGB Conc 34.8 % (30-36); Mean Corpuscular Hemoglobin 34.2 PG (26-34); Mean Corpuscular Volume 98.1 fL (80-100); Monocytes Absolute Auto 900 /uL (0-900); Neutrophils Absolute Auto 6600 /uL (1500-7000); Platelet Count 153 X10^3/uL (150-400); Red Blood Cell Count 3.39 X10^6/uL (4.5-5.9); Red Cell Distribution Width 13.9 % (11.6-14.8); White Blood Cell Count 9.1 X10^3/uL (4.5-11.0)
[2022-02-22 11:50] LABS: Alanine Aminotransferase 16 IU/L (<50); Albumin 3.4 g/dL (3.5-5.0); Albumin Globulin Ratio 1.3 (1.0-2.8); Alkaline Phosphatase 68 U/L (38-126); Aspartate Aminotransferase 32 IU/L (17-59); Blood Urea Nitrogen 12 mg/dL (9-20); Calcium 8.3 mg/dL (8.4-10.2); Carbon Dioxide 32 mmol/L (22-32); Chloride 101 mmol/L (98-107); Estimated Glomerular Filt Rate > 60 mL/min (>60); Globulin 2.6 g/dL (1.7-4.1); Glucose 110 mg/dL (80-110); HEMOLYSIS < 15 (0-50); Potassium 3.6 mmol/L (3.4-5.1); Sodium 136 mmol/L (137-145)
== END 2022-02-22 13:08 | disposition short-term general hospital (02) ==
PROVIDERS: Emergency Medicine; Emergency Provider Emergency Medicine; PCP Nurse Practitioner Family
DX: T81.718A Complication of other artery following a procedure, not elsewhere classified, initial encounter (principal); Z20.822 Contact with and (suspected) exposure to COVID-19
CPT/HCPCS: 36415; 80053; 85025; 85610; 85730; 87635; 93926; 96374; 96376; 99285; C9803; J1170

== ENCOUNTER → 2022-08-31 13:30 | Outpatient (CLI) | payer MEDICARE, OTHER, SELFPAY ==
--- NOTE | 2022-08-31 | DI.ECHO.S_ITS ---
[facility] +---------+ : : [address] : : : : [place], : : : : [place] [id number] : : : : Phone: [phone] + [facility] Echocardiogram Report + + :Name: JENA PEMBERTON Study Date: 08/31/2022 Height: 73 in : :[facility] ReadingLocation: Weight: 222 lb : : Gender: Male BSA: 2.2 m2 : :: 1945 Age: 77 yrs BP: 142/86 mmHg: :Reason For Study: Typical atrial flutter, assess LV wall : :motion and EF : :Ordering Physician: Maty : :Miguel Rivero Performed By: Brynn Smith : :Referring: MATY RIVERO : + + Interpretation Summary Limited study. Mild concentric left ventricular hypertrophy with ejection fraction 55-60%. Procedure: A two-dimensional transthoracic echocardiogram with color flow and Doppler was performed in limited views only. The study quality was technically adequate. The patient was in sinus rhythm with heart rates between 81-96 bpm during the exam. Left Ventricle: The left ventricle is normal in size. There is mild concentric left ventricular hypertrophy. The ejection fraction is estimated to be 55-60%. This is unchanged compared to the previous study. MMode/2D Measurements & Calculations LVIDd: 3.5 cm LVLs ap4: 5.5 cm LVIDs: 2.4 cm IVSd: 1.2 cm LVPWd: 1.1 cm LV amador. diameter/BSA (cm/m^2): 1.6 LV sys. diameter/BSA (cm/m^2): 1.1 FS: 31.4 % LVLd ap2: 8.7 cm LVLs ap2: 7.5 cm Electronically signed by: Lance Quiroga on Reading Physician:08/31/2022 02:37 PM
== END ==
PROVIDERS: Family Provider Family Medicine; PCP Family Medicine; Referring Provider Internal Medicine Cardiovascular Disease; Visit Provider Internal Medicine Cardiovascular Disease
DX: I48.3 Typical atrial flutter (principal)
CPT/HCPCS: 93307

== ENCOUNTER 2022-12-31 10:00 | Outpatient (RCR) | payer MEDICARE, OTHER, SELFPAY ==
--- NOTE | 2022-10-02 17:06 | PT.OIE ---
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) Hypertension Mixed hyperlipidemia Numbness Perioral dermatitis Red eye Runny nose (11/2019) Seasonal allergies Weight loss Visit Care Team Role Provider Type Reynaldo Carter DO Attending Provider Physician Family Provider Primary Care Provider Referring Provider Specialty: Family Practice Address: [address] [place] [address] Email: [email or web address] Physical Therapy Initial Evaluation PT-OP-A Visit Information Start: 09/29/22 19:36 Freq: Status: Active Protocol: Document 10/02/22 11:22 LRN (Rec: 10/02/22 12:35 LRN [id number]) Out-Patient Physical Therapy Visit Information Visit Information Visit Type Initial Evaluation Visit Start Time 11:22 Visit Stop Time 12:15 Total Visit Minutes 53 Visit Number 1 Evaluation Information Evaluation Date 10/02/22 Precautions Precautions Heart ablation 01/2022, arthritis, dizziness with falls x 2 last year, back and neck pain worse after falls hitting his head. PT-OP-B Current Condition Start: 09/29/22 19:36 Freq: Status: Active Protocol: Document 10/02/22 11:22 LRN (Rec: 10/02/22 12:35 LRN [id number]) Current Condition History of Current Condition Onset Date 2 yrs ago. Current Complaints Gait and mobility and dizziness w/gait/mobility. History of Current Condition States he has dizziness problems and is seeking PT because he got a new health care provider who has referred him to physical therapy. Pt reports falling a couple time, once last summer and most recently in April. Pt was by himself and falls occured due to same situation, sitting on chair and pushing himself away from a table. The chair legs caught on carpet, causing him and the chair to fall backwards, hitting his head on hardwood floor. Pt also c/o pain in both hips that is progressively worsening. The pain is of same intensity. Pain when on his feet outside his home, after ~25 minutes (like at [email or web address]). Another complaint is that he wakes in the morning and lays on his back looking at his phone. When he sits up he feels dizzy. In the middle of the night gets up w/o dizziness because he is laying on his side. 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 Treatment Goals Patient/Caregiver Goals Pt goal is to increase LE strength and posture for walking with less pain >25'. Pt agreeable to LE strengthening, balance and gait training, and being placed on a HEP. Personal Factors Other Personal Factors That May Effect Arthritis, back and neck pain, Therapy/Recovery dizziness and falls leading to bkwd falls hitting his head . PT-OP-C Subjective Start: 09/29/22 19:36 Freq: Status: Active Protocol: Document 10/02/22 11:22 LRN (Rec: 10/02/22 12:35 LRN [id number]) Patient Questionnaires ABC- Activity Specific Balance Confidence Scale ABC Score 56 ABC Functional Impairment 40 to <60% Impaired (Score 41- 60) OP-PT Pain Assessment Location Hips Pain Location Details Lateral sides of hips (C-hold) Intensity 6 Scale Used Numeric (0 - 10) Description Aching Description- Other Can't be ignored ache. Frequency After walking 25' or more PT-OP-D Balance Start: 09/29/22 19:36 Freq: Status: Active Protocol: Document 10/02/22 11:22 LRN (Rec: 10/02/22 14:07 LRN [id number]) Balance Tests Single Limb Standing Single Limb- Right 0 Single Limb- Left 0 Semi-Tandem Standing Semi-Tandem Standing Balance 0 Pt not able to obtain position w/o LOB. PT-OP-E Functional Tests Start: 09/29/22 19:36 Freq: Status: Active Protocol: Document 10/02/22 11:22 LRN (Rec: 10/02/22 14:07 LRN [id number]) Functional Tests Dynamic Gait Index (DGI) Score 18 DGI Impairment Rating 20 to <40% Impaired (Score 15- 19) Timed Up and Go (TUG) Score 12 TUG Impairment Rating 20 to <40% Impaired (Score 12- 13) Other Gait speed Name of Test Gait speed Score 2.5 ft/sec Comment No AD, slow pace, mild gait dysfunction. PT-OP-G Mobility & Gait Start: 09/29/22 19:36 Freq: Status: Active Protocol: Document 10/02/22 11:22 LRN (Rec: 10/02/22 12:35 LRN [id number]) OP Mobility Evaluation Bed Mobility Rolling Independent but slow. Supine to and from Sit Independent. No c/o dizziness with short stay on his back. Transfers Sit to Stand Independent with use of UE's OP Gait Assessment Gait Gait Assistance Required: Independent Assistive Devices Assistive Device None Gait Deviations General Gait Pattern Decreased Stride Length, Decreased Feet Clearance, Flexed Trunk,Narrow Based Gait Factors Limiting Gait Function Factors Limiting Gait Function Decreased Strength,Limited Range of Motion,Poor Balance PT-OP-H Neuro Start: 09/29/22 19:36 Freq: Status: Active Protocol: Document 10/02/22 11:22 LRN (Rec: 10/02/22 12:35 LRN [id number]) Sensation Evaluation Gross Sensation Gross Sensation WNL PT-OP-J Posture/Palpation/Skin Start: 09/29/22 19:36 Freq: Status: Active Protocol: Document 10/02/22 11:22 LRN (Rec: 10/02/22 12:35 LRN [id number]) Posture Evaluation Position Standing Head/C-Spine Posture Forward Head Shoulder Posture (L) Elevated Arm Posture (L) Internally Rotated,(R) Internally Rotated Weight Distribution Balanced Knee Posture (L) Genu Varus,(R) Genu Varus Ankle/Foot Posture (L) Calcaneal Inversion,(R) Calcaneal Inversion Foot Arch (L) Low Arch,(R) Low Arch Comments Posture Comments R shoulder noticeably low. 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 PT-OP-K Range of Motion Start: 09/29/22 19:36 Freq: Status: Active Protocol: Document 10/02/22 11:22 LRN (Rec: 10/02/22 12:35 LRN [id number]) Hip Goniometric Range of Motion Hip Right Active Flexion w/Knee Flexed 110 Comments Lacks ~10 deg's hip ext to neutral Left Active Flexion w/Knee Flexed 110 Comments Lacks ~10 deg's hip ext to neutral Knee Goniometric Range of Motion Knee Right Knee ROM WFL Yes Left Knee ROM WFL Yes Ankle and Foot Goniometric Range of Motion Ankle and Foot Right Passive Ankle/Foot ROM WFL No Testing Position Sitting/Longsit Dorsiflexion with Knee Flexed 0 Dorsiflexion with Knee Extended 0 Inversion 0 Eversion 0 Left Active Ankle/Foot ROM WFL No Testing Position Sitting/Longsit Dorsiflexion with Knee Flexed 0 Dorsiflexion with Knee Extended 0 Inversion 10 Eversion 5 PT-OP-M Strength Start: 09/29/22 19:36 Freq: Status: Active Protocol: Document 10/02/22 11:22 LRN (Rec: 10/02/22 12:35 LRN [id number]) Hip Strength Hip Manual Muscle Testing Right Flexion (L2) 2+ Poor+ Extension (S1) 2- Poor- Abduction 5 Normal Adduction 2 Poor Comments Pt lacks hip Ext Left Flexion (L2) 2+ Poor+ Extension (S1) 2- Poor- Abduction 2+ Poor+ Adduction 3 Fair Comments Pt lacks hip Ext Knee Strength Knee Manual Muscle Testing Right Flexion (S2) 5 Normal Extension (L3) 5 Normal Left Flexion (S2) 5 Normal Extension (L3) 5 Normal Ankle/Foot Strength Ankle and Foot Manual Muscle Testing Right Dorsiflexion (L4) 5 Normal Plantarflexion (S1) 5 Normal Inversion 5 Normal Eversion (S1) 5 Normal Comments Pt has good strength in his available range. Left Dorsiflexion (L4) 5 Normal Plantarflexion (S1) 5 Normal Inversion 5 Normal Eversion (S1) 5 Normal Comments Pt has good strength in his available range. PT-OP-Q Treatments Start: 09/29/22 19:36 Freq: Status: Active Protocol: Document 10/02/22 11:22 LRN (Rec: 10/02/22 12:35 LRN [id number]) Self-Care/Home Management Treatment Education Other Education Discussed results of evaluation, and at length his goals, and plan of care (POC). Pt agreeable to goals and POC. PT-OP-T Assessment and Plan Start: 09/29/22 19:36 Freq: Status: Active Protocol: Document 10/02/22 11:22 LRN (Rec: 10/02/22 12:35 LRN [id number]) Physical Therapy Assessment Rehab Potential Rehabilitation Potential Good Evaluation Complexity Number of Personal Factors/Comorbidities 0 Number of Body Systems Impaired 3 Clinical Presentation at Evaluation Evolving Impairments Impairments Activity Tolerance,Balance, Gait,Posture,ROM,Soft Tissue Mobility,Strength,Transfers, Vestibular Goals Four Impairment Dizziness supine to sit in mornings. Impairment Dizziness in mornings after lying supine for extended period of time. Division Leader Goal (LTG) Pt will not have dizziness with bed mobility and transfers. LTG Duration 01/01/23 Three Impairment Gait Impairment Gait with decreased stride length (R>L), decreased feet clearance, flexed at hips, narrow MARILYNN. DGI score 18 (20<40% impaired, score 15-19) Hip strength: Flex 2+/5 nickie, ext 2-/5 nickie, AB 5/5 R, 2+/5 L , AD 2/5 R, 3/5 L. Hip AROM: Hip Ext - lacks ~10 deg's to neutral. Short Term Goal (STG) Improve hip strength and mobility and improve DGI score >19. STG Duration 11/16/22 Division Leader Goal (LTG) Pt will be able to improve posture and LE strength for walking and will report less pain after 25 minutes of walking for shopping ([email or web address]). LTG Duration 01/01/23 Two Impairment Balance Impairment Ankle AROM: DF is 0 deg's nickie , IV is 0 deg's R, 10 deg's L, EV is 0 deg's R, 5 deg's L. Short Term Goal (STG) Improve ankle mobility (DF, IV , EV). STG Duration 11/16/22 Assisted Goal (LTG) Pt confidence will improve per ABC score with greater use of ankle stratedgy for standing balance. LTG Duration 01/01/23 One Impairment HEP Short Term Goal (STG) Pt will be educated in proper standing/sitting posture. STG Duration 11/16/22 Assisted Goal (LTG) Pt will be independent in a self care HEP of balance, hip/ ankle mobility and strengthening ex's, and knee strengthening. Pt will initiate an home walking program. LTG Duration 01/01/23 Assessment Summary Assessment Pt is a 77 yo male who presents with instability with gait and decreased balance. He has loss of stability with walking when looking left much more noticeably than when looking right. He is unsteady lifting his feet up on a 6 step and demonstrates no holding single leg standing ( SLS) ability. He steps over hurdles by swinging his foot around the lee rather than lifting his foot in order to minimize the time he is SLS. He shows no instability with turning. He has LE weakness that is present when trying to transfer sit<>stand, requiring the use of UE's to assist. The pt posture and ability to roll side<>side, demonstrates he has poor core strength. The pt will benefit from skilled physical therapy to improve core/LE strength, improve safety/stability with gait and to improve his balance and function. The pt has complaints of dizziness when moving from being on his back for a length of time to sitting up; therefore the pt will benefit from a couple treatments by our vestibular therapist(s) to address his dizziness and provide ex's that will lessen the onset of dizziness with changes of position from his back. Physical Therapy Plan Frequency and Duration Frequency of Treatment 2x/Week Plan of Care Start Date 10/02/22 Plan of Care End Date 01/01/23 Therapeutic Interventions Therapeutic Interventions Balance Training,Gait Training ,Home Exercise Program,Joint Mobilizations,Manual Therapy, Neuromuscular Re-education, Patient/Caregiver Education, Self-Care/Home Management, Therapeutic Activities, Therapeutic Exercises, Vestibular Rehabilitation Modalities Cold Pack/Ice Massage,Hot Packs Next Visit Focus/Plan Next Note Type Treatment Note Next Visit Plan Initiate ex/HEP: ankle ROM and strengthening, hip strengthening (ext, AB), Check hip rot mobility PROM and strength. Aerobic ex for hips, Education: posture, discuss defer of supine lying until vestibular assessment complete . Balance training and gait training with head movements. Vestibular assessment and ex's .
--- NOTE | 2022-10-06 15:43 | PT.OTN ---
Current Diagnoses Other abnormalities of gait and mobility (10/06/22) Physical Therapy Treatment Note PT-OP-A Visit Information Start: 09/29/22 19:36 Freq: Status: Active Protocol: Document 10/06/22 14:31 AMB (Rec: 10/06/22 15:18 AMB [id number]) Out-Patient Physical Therapy Visit Information Visit Information Visit Type Treatment Note Visit Start Time 14:30 Visit Stop Time 15:15 Total Visit Minutes 45 Visit Number 2 PT-OP-B Current Condition Start: 09/29/22 19:36 Freq: Status: Active Protocol: Document 10/02/22 11:22 LRN (Rec: 10/02/22 12:35 LRN [id number]) Current Condition History of Current Condition Onset Date 2 yrs ago. Current Complaints Gait and mobility and dizziness w/gait/mobility. History of Current Condition States he has dizziness problems and is seeking PT because he got a new health care provider who has referred him to physical therapy. Pt reports falling a couple time, once last summer and most recently in April. Pt was by himself and falls occured due to same situation, sitting on chair and pushing himself away from a table. The chair legs caught on carpet, causing him and the chair to fall backwards, hitting his head on hardwood floor. Pt also c/o pain in both hips that is progressively worsening. The pain is of same intensity. Pain when on his feet outside his home, after ~25 minutes (like at [employer]). Another complaint is that he wakes in the morning and lays on his back looking at his phone. When he sits up he feels dizzy. In the middle of the night gets up w/o dizziness because he is laying on his side. 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 Treatment Goals Patient/Caregiver Goals Pt goal is to increase LE strength and posture for walking with less pain >25'. Pt agreeable to LE strengthening, balance and gait training, and being placed on a HEP. Personal Factors Other Personal Factors That May Effect Arthritis, back and neck pain, Therapy/Recovery dizziness and falls leading to bkwd falls hitting his head . PT-OP-C Subjective Start: 09/29/22 19:36 Freq: Status: Active Protocol: Document 10/06/22 14:31 AMB (Rec: 10/06/22 15:18 AMB [id number]) OP-PT Subjective Patient Comments Patient Comments Pt reports dizziness all the time. Can't negotiate room in the dark. Gets dizzy getting up out of bed. Gets disoriented. Laying on his back seems to make it worse. Has had a couple of concussions falling backwards on his head and that has worsened his symptoms. Since Blanche has felt like an extra layer between his feet and the ground, like he wants to check if he has socks on. Does have some cardiac hx with atrial flutter ablation. January started 4th and 5th finger numbness. PT-OP-D Balance Start: 09/29/22 19:36 Freq: Status: Active Protocol: Document 10/02/22 11:22 LRN (Rec: 10/02/22 14:07 LRN [id number]) Balance Tests Single Limb Standing Single Limb- Right 0 Single Limb- Left 0 Semi-Tandem Standing Semi-Tandem Standing Balance 0 Pt not able to obtain position w/o LOB. PT-OP-E Functional Tests Start: 09/29/22 19:36 Freq: Status: Active Protocol: Document 10/02/22 11:22 LRN (Rec: 10/02/22 14:07 LRN [id number]) Functional Tests Dynamic Gait Index (DGI) Score 18 DGI Impairment Rating 20 to <40% Impaired (Score 15- 19) Timed Up and Go (TUG) Score 12 TUG Impairment Rating 20 to <40% Impaired (Score 12- 13) Other Gait speed Name of Test Gait speed Score 2.5 ft/sec Comment No AD, slow pace, mild gait dysfunction. PT-OP-G Mobility & Gait Start: 09/29/22 19:36 Freq: Status: Active Protocol: Document 10/02/22 11:22 LRN (Rec: 10/02/22 12:35 LRN [id number]) OP Mobility Evaluation Bed Mobility Rolling Independent but slow. Supine to and from Sit Independent. No c/o dizziness with short stay on his back. Transfers Sit to Stand Independent with use of UE's OP Gait Assessment Gait Gait Assistance Required: Independent Assistive Devices Assistive Device None Gait Deviations General Gait Pattern Decreased Stride Length, Decreased Feet Clearance, Flexed Trunk,Narrow Based Gait Factors Limiting Gait Function Factors Limiting Gait Function Decreased Strength,Limited Range of Motion,Poor Balance PT-OP-H Neuro Start: 09/29/22 19:36 Freq: Status: Active Protocol: Document 10/02/22 11:22 LRN (Rec: 10/02/22 12:35 LRN [id number]) Sensation Evaluation Gross Sensation Gross Sensation WNL PT-OP-J Posture/Palpation/Skin Start: 09/29/22 19:36 Freq: Status: Active Protocol: Document 10/02/22 11:22 LRN (Rec: 10/02/22 12:35 LRN [id number]) Posture Evaluation Position Standing Head/C-Spine Posture Forward Head Shoulder Posture (L) Elevated Arm Posture (L) Internally Rotated,(R) Internally Rotated Weight Distribution Balanced Knee Posture (L) Genu Varus,(R) Genu Varus Ankle/Foot Posture (L) Calcaneal Inversion,(R) Calcaneal Inversion Foot Arch (L) Low Arch,(R) Low Arch Comments Posture Comments R shoulder noticeably low. 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 PT-OP-K Range of Motion Start: 09/29/22 19:36 Freq: Status: Active Protocol: Document 10/02/22 11:22 LRN (Rec: 10/02/22 12:35 LRN [id number]) Hip Goniometric Range of Motion Hip Right Active Flexion w/Knee Flexed 110 Comments Lacks ~10 deg's hip ext to neutral Left Active Flexion w/Knee Flexed 110 Comments Lacks ~10 deg's hip ext to neutral Knee Goniometric Range of Motion Knee Right Knee ROM WFL Yes Left Knee ROM WFL Yes Ankle and Foot Goniometric Range of Motion Ankle and Foot Right Passive Ankle/Foot ROM WFL No Testing Position Sitting/Longsit Dorsiflexion with Knee Flexed 0 Dorsiflexion with Knee Extended 0 Inversion 0 Eversion 0 Left Active Ankle/Foot ROM WFL No Testing Position Sitting/Longsit Dorsiflexion with Knee Flexed 0 Dorsiflexion with Knee Extended 0 Inversion 10 Eversion 5 PT-OP-M Strength Start: 09/29/22 19:36 Freq: Status: Active Protocol: Document 10/02/22 11:22 LRN (Rec: 10/02/22 12:35 LRN [id number]) Hip Strength Hip Manual Muscle Testing Right Flexion (L2) 2+ Poor+ Extension (S1) 2- Poor- Abduction 5 Normal Adduction 2 Poor Comments Pt lacks hip Ext Left Flexion (L2) 2+ Poor+ Extension (S1) 2- Poor- Abduction 2+ Poor+ Adduction 3 Fair Comments Pt lacks hip Ext Knee Strength Knee Manual Muscle Testing Right Flexion (S2) 5 Normal Extension (L3) 5 Normal Left Flexion (S2) 5 Normal Extension (L3) 5 Normal Ankle/Foot Strength Ankle and Foot Manual Muscle Testing Right Dorsiflexion (L4) 5 Normal Plantarflexion (S1) 5 Normal Inversion 5 Normal Eversion (S1) 5 Normal Comments Pt has good strength in his available range. Left Dorsiflexion (L4) 5 Normal Plantarflexion (S1) 5 Normal Inversion 5 Normal Eversion (S1) 5 Normal Comments Pt has good strength in his available range. PT-OP-Q Treatments Start: 09/29/22 19:36 Freq: Status: Active Protocol: Document 10/06/22 14:30 AMB (Rec: 10/06/22 15:33 AMB [id number]) Neuro Re-Education Treatment Vestibular Rehabilitation Other- 1 Details Gustavo Hallpike bilaterally, supine roll test Comments [place] Hallpike negative for nystagmus or sx. Pt symptomatic with return to sitting in all testing, but no sx in actual position. Did end up treating with Kyra Martinez as pt felt that everyone states I should get checked for BPPV but no nystagmus and still symptomatic with return to sitting. PT-OP-T Assessment and Plan Start: 09/29/22 19:36 Freq: Status: Active Protocol: Document 10/06/22 14:31 AMB (Rec: 10/06/22 15:18 AMB [id number]) Physical Therapy Assessment Goals Four Impairment Dizziness supine to sit in mornings. Impairment Dizziness in mornings after lying supine for extended period of time. Longterm Goal (LTG) Pt will not have dizziness with bed mobility and transfers. LTG Duration 01/01/23 Three Impairment Gait Impairment Gait with decreased stride length (R>L), decreased feet clearance, flexed at hips, narrow MARILYNN. DGI score 18 (20<40% impaired, score 15-19) Hip strength: Flex 2+/5 nickie, ext 2-/5 nickie, AB 5/5 R, 2+/5 L , AD 2/5 R, 3/5 L. Hip AROM: Hip Ext - lacks ~10 deg's to neutral. Short Term Goal (STG) Improve hip strength and mobility and improve DGI score >19. STG Duration 11/16/22 Television Picture Tube Rebuilder Goal (LTG) Pt will be able to improve posture and LE strength for walking and will report less pain after 25 minutes of walking for shopping ([employer]). LTG Duration 01/01/23 Two Impairment Balance Impairment Ankle AROM: DF is 0 deg's nickie , IV is 0 deg's R, 10 deg's L, EV is 0 deg's R, 5 deg's L. Short Term Goal (STG) Improve ankle mobility (DF, IV , EV). STG Duration 11/16/22 Television Picture Tube Rebuilder Goal (LTG) Pt confidence will improve per ABC score with greater use of ankle stratedgy for standing balance. LTG Duration 01/01/23 One Impairment HEP Short Term Goal (STG) Pt will be educated in proper standing/sitting posture. STG Duration 11/16/22 Longterm Goal (LTG) Pt will be independent in a self care HEP of balance, hip/ ankle mobility and strengthening ex's, and knee strengthening. Pt will initiate an home walking program. LTG Duration 01/01/23 Assessment Summary Assessment Pt did not show nystagmus or really sx with DixHallpike testing, did consistently get dizzy when coming up from position. Pt self reports BP within norms and not on hypertensive meds, but given pt's symptoms would recommend positional testing to rule in/ rule out orthostatics. Pt then does also have significant balance concerns elisa new onset reduced sensation in his feet that will need to be addressed further. Physical Therapy Plan Frequency and Duration Frequency of Treatment 2x/Week Plan of Care Start Date 10/02/22 Plan of Care End Date 01/01/23 Therapeutic Interventions Therapeutic Interventions Balance Training,Gait Training ,Home Exercise Program,Joint Mobilizations,Manual Therapy, Neuromuscular Re-education, Patient/Caregiver Education, Self-Care/Home Management, Therapeutic Activities, Therapeutic Exercises, Vestibular Rehabilitation Modalities Cold Pack/Ice Massage,Hot Packs Next Visit Focus/Plan Next Note Type Treatment Note Next Visit Plan Check orthostatic BPs Initiate ex/HEP: ankle ROM and strengthening, hip strengthening (ext, AB), Check hip rot mobility PROM and strength. Aerobic ex for hips, Education: posture, discuss defer of supine lying until vestibular assessment complete . Balance training and gait training with head movements. Vestibular assessment and ex's .
[2022-10-09 11:19] VITALS: BP 131/82; BP 137/84; BP 145/86; PULSE 105; PULSE 94; PULSE 99
--- NOTE | 2022-10-09 12:16 | PT.OTN ---
Current Diagnoses Other abnormalities of gait and mobility (10/09/22) Physical Therapy Treatment Note PT-OP-A Visit Information Start: 09/29/22 19:36 Freq: Status: Active Protocol: Document 10/09/22 11:19 LRN (Rec: 10/09/22 12:15 LRN [id number]) Out-Patient Physical Therapy Visit Information Visit Information Visit Type Treatment Note Visit Start Time 11:20 Visit Stop Time 12:02 Total Visit Minutes 42 Visit Number 3 Evaluation Information Evaluation Date 10/02/22 Precautions Precautions Heart ablation 01/2022, arthritis, dizziness with falls x 2 last year, back and neck pain worse after falls hitting his head. PT-OP-B Current Condition Start: 09/29/22 19:36 Freq: Status: Active Protocol: Document 10/02/22 11:22 LRN (Rec: 10/02/22 12:35 LRN [id number]) Current Condition History of Current Condition Onset Date 2 yrs ago. Current Complaints Gait and mobility and dizziness w/gait/mobility. History of Current Condition States he has dizziness problems and is seeking PT because he got a new health care provider who has referred him to physical therapy. Pt reports falling a couple time, once last summer and most recently in April. Pt was by himself and falls occured due to same situation, sitting on chair and pushing himself away from a table. The chair legs caught on carpet, causing him and the chair to fall backwards, hitting his head on hardwood floor. Pt also c/o pain in both hips that is progressively worsening. The pain is of same intensity. Pain when on his feet outside his home, after ~25 minutes (like at [employer]). Another complaint is that he wakes in the morning and lays on his back looking at his phone. When he sits up he feels dizzy. In the middle of the night gets up w/o dizziness because he is laying on his side. 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 Treatment Goals Patient/Caregiver Goals Pt goal is to increase LE strength and posture for walking with less pain >25'. Pt agreeable to LE strengthening, balance and gait training, and being placed on a HEP. Personal Factors Other Personal Factors That May Effect Arthritis, back and neck pain, Therapy/Recovery dizziness and falls leading to bkwd falls hitting his head . PT-OP-C Subjective Start: 09/29/22 19:36 Freq: Status: Active Protocol: Document 10/09/22 11:19 LRN (Rec: 10/09/22 12:15 LRN [id number]) OP-PT Subjective Patient Comments Patient Comments Exam room lights did not bother him in sup. States walking into bright lights makes him feel unsteady. Has noticed a distinct improvement. Day after last session was able to get up out of bed without feeling dizzy. Balance is better. Stepped into shower and has not had to use handholds since last treatment because he didn't need to, he didn't feel like he needed to hand onto handholds (turning, walking around, bending over to rock picker shampoo, brushed teeth). [place] much steadier on feet. [place] safe to walk up/down 2 steps of back deck to [employer]Q. States he smokes and drinks too much. PT-OP-D Balance Start: 09/29/22 19:36 Freq: Status: Active Protocol: Document 10/02/22 11:22 LRN (Rec: 10/02/22 14:07 LRN [id number]) Balance Tests Single Limb Standing Single Limb- Right 0 Single Limb- Left 0 Semi-Tandem Standing Semi-Tandem Standing Balance 0 Pt not able to obtain position w/o LOB. PT-OP-E Functional Tests Start: 09/29/22 19:36 Freq: Status: Active Protocol: Document 10/02/22 11:22 LRN (Rec: 10/02/22 14:07 LRN [id number]) Functional Tests Dynamic Gait Index (DGI) Score 18 DGI Impairment Rating 20 to <40% Impaired (Score 15- 19) Timed Up and Go (TUG) Score 12 TUG Impairment Rating 20 to <40% Impaired (Score 12- 13) Other Gait speed Name of Test Gait speed Score 2.5 ft/sec Comment No AD, slow pace, mild gait dysfunction. PT-OP-G Mobility & Gait Start: 09/29/22 19:36 Freq: Status: Active Protocol: Document 10/02/22 11:22 LRN (Rec: 10/02/22 12:35 LRN [id number]) OP Mobility Evaluation Bed Mobility Rolling Independent but slow. Supine to and from Sit Independent. No c/o dizziness with short stay on his back. Transfers Sit to Stand Independent with use of UE's OP Gait Assessment Gait Gait Assistance Required: Independent Assistive Devices Assistive Device None Gait Deviations General Gait Pattern Decreased Stride Length, Decreased Feet Clearance, Flexed Trunk,Narrow Based Gait Factors Limiting Gait Function Factors Limiting Gait Function Decreased Strength,Limited Range of Motion,Poor Balance PT-OP-H Neuro Start: 09/29/22 19:36 Freq: Status: Active Protocol: Document 10/09/22 11:19 LRN (Rec: 10/09/22 12:15 LRN [id number]) Vital Signs Pulse Standing after sitting Pulse at Rest (bpm) 105 Pulse Assessment Method Auto cuff Sitting after supine Pulse at Rest (bpm) 99 Pulse Assessment Method Auto cuff Supine at start Pulse at Rest (bpm) 94 Pulse Assessment Method Auto cuff Blood Pressure Standing after sitting Blood Pressure (90/60-120/80 mmHg) 131/82 H Blood Pressure Source Automatic Cuff Sitting after supine Blood Pressure (90/60-120/80 mmHg) 137/84 H Blood Pressure Source Automatic Cuff Supine at start Blood Pressure (90/60-120/80 mmHg) 145/86 H Blood Pressure Source Automatic Cuff Comments Vital Signs Comments No dizziness on sitting after supine for 15' PT-OP-J Posture/Palpation/Skin Start: 09/29/22 19:36 Freq: Status: Active Protocol: Document 10/02/22 11:22 LRN (Rec: 10/02/22 12:35 LRN [id number]) Posture Evaluation Position Standing Head/C-Spine Posture Forward Head Shoulder Posture (L) Elevated Arm Posture (L) Internally Rotated,(R) Internally Rotated Weight Distribution Balanced Knee Posture (L) Genu Varus,(R) Genu Varus Ankle/Foot Posture (L) Calcaneal Inversion,(R) Calcaneal Inversion Foot Arch (L) Low Arch,(R) Low Arch Comments Posture Comments R shoulder noticeably low. 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 PT-OP-K Range of Motion Start: 09/29/22 19:36 Freq: Status: Active Protocol: Document 10/02/22 11:22 LRN (Rec: 10/02/22 12:35 LRN [id number]) Hip Goniometric Range of Motion Hip Right Active Flexion w/Knee Flexed 110 Comments Lacks ~10 deg's hip ext to neutral Left Active Flexion w/Knee Flexed 110 Comments Lacks ~10 deg's hip ext to neutral Knee Goniometric Range of Motion Knee Right Knee ROM WFL Yes Left Knee ROM WFL Yes Ankle and Foot Goniometric Range of Motion Ankle and Foot Right Passive Ankle/Foot ROM WFL No Testing Position Sitting/Longsit Dorsiflexion with Knee Flexed 0 Dorsiflexion with Knee Extended 0 Inversion 0 Eversion 0 Left Active Ankle/Foot ROM WFL No Testing Position Sitting/Longsit Dorsiflexion with Knee Flexed 0 Dorsiflexion with Knee Extended 0 Inversion 10 Eversion 5 PT-OP-M Strength Start: 09/29/22 19:36 Freq: Status: Active Protocol: Document 10/02/22 11:22 LRN (Rec: 10/02/22 12:35 LRN [id number]) Hip Strength Hip Manual Muscle Testing Right Flexion (L2) 2+ Poor+ Extension (S1) 2- Poor- Abduction 5 Normal Adduction 2 Poor Comments Pt lacks hip Ext Left Flexion (L2) 2+ Poor+ Extension (S1) 2- Poor- Abduction 2+ Poor+ Adduction 3 Fair Comments Pt lacks hip Ext Knee Strength Knee Manual Muscle Testing Right Flexion (S2) 5 Normal Extension (L3) 5 Normal Left Flexion (S2) 5 Normal Extension (L3) 5 Normal Ankle/Foot Strength Ankle and Foot Manual Muscle Testing Right Dorsiflexion (L4) 5 Normal Plantarflexion (S1) 5 Normal Inversion 5 Normal Eversion (S1) 5 Normal Comments Pt has good strength in his available range. Left Dorsiflexion (L4) 5 Normal Plantarflexion (S1) 5 Normal Inversion 5 Normal Eversion (S1) 5 Normal Comments Pt has good strength in his available range. PT-OP-Q Treatments Start: 09/29/22 19:36 Freq: Status: Active Protocol: Document 10/09/22 11:19 LRN (Rec: 10/09/22 12:15 LRN [id number]) Cardio Equipment Recumbent Stepper (Sci-Fit) Duration (Minutes) 6 Resistance 1 Seat Position 13 Other Try seat 14 next session Therapeutic Exercises Supine Exercises Resting in supine Supine Exercise Name Resting in supine Reps/Minutes 15' Therapeutic Activity Therapeutic Activity Postural BP check Name BP/HR taken in sup, sit and stand Reps/Minutes 23 min Neuro Re-Education Treatment Balance Activities Walking pushing cart Details Walking pushing rolling BP cuff unit Surface Level Walking w/head turns Details Walking w/head turns Surface Level Reps/Duration 3' Self-Care/Home Management Treatment Education Other Education Pt educated in pulse taking at L wrist. Pt had difficulty identifying pulse; therefore many trial and error for finding pusle that pt could identify. Pt was at end able to feel pulse. Educated pt in response to positional BP checks with discussion of waiting for safety before moving with positional changes, elisa if symptoms exist. Discussed pt's calculated Max HR at 70% (101 bpm) and at 80% (116 bpm). Activities Self-Care/Home Management Activities Recommended pt obtain a finger pulse oximeter to monitor his HR for exercise advancement. PT-OP-T Assessment and Plan Start: 09/29/22 19:36 Freq: Status: Active Protocol: Document 10/09/22 11:19 LRN (Rec: 10/09/22 12:15 LRN [id number]) Physical Therapy Assessment Goals Four Impairment Dizziness supine to sit in mornings. Impairment Dizziness in mornings after lying supine for extended period of time. Shelter Goal (LTG) Pt will not have dizziness with bed mobility and transfers. 10/09/22: Pt no having dizziness with transfer sup<> sit<>stand. LTG Duration 01/01/23 progressing Three Impairment Gait Impairment Gait with decreased stride length (R>L), decreased feet clearance, flexed at hips, narrow MARILYNN. DGI score 18 (20<40% impaired, score 15-19) Hip strength: Flex 2+/5 nickie, ext 2-/5 nickie, AB 5/5 R, 2+/5 L , AD 2/5 R, 3/5 L. Hip AROM: Hip Ext - lacks ~10 deg's to neutral. Short Term Goal (STG) Improve hip strength and mobility and improve DGI score >19. STG Duration 11/16/22 Health Care / Medical Job Titles Goal (LTG) Pt will be able to improve posture and LE strength for walking and will report less pain after 25 minutes of walking for shopping ([employer]). LTG Duration 01/01/23 Two Impairment Balance Impairment Ankle AROM: DF is 0 deg's nickie , IV is 0 deg's R, 10 deg's L, EV is 0 deg's R, 5 deg's L. Short Term Goal (STG) Improve ankle mobility (DF, IV , EV). STG Duration 11/16/22 Shelter Goal (LTG) Pt confidence will improve per ABC score with greater use of ankle stratedgy for standing balance. LTG Duration 01/01/23 One Impairment HEP Short Term Goal (STG) Pt will be educated in proper standing/sitting posture. STG Duration 11/16/22 Shelter Goal (LTG) Pt will be independent in a self care HEP of balance, hip/ ankle mobility and strengthening ex's, and knee strengthening. Pt will initiate an home walking program. LTG Duration 01/01/23 Assessment Summary Assessment Pt demonstrates decreased BP with supine to sit of 8 mmHg and with sit to stand 6 mmHg. Resting HR is 94 bpm, Sitting 95, standing 105 (max HR at 70% is 101). Pt demonstrating greater confidence in walking since last session. Pt is having R hip pain concerns that limits his ability to walk for exercise. Physical Therapy Plan Frequency and Duration Frequency of Treatment 2x/Week Plan of Care Start Date 10/02/22 Plan of Care End Date 01/01/23 Next Visit Focus/Plan Next Note Type Treatment Note Next Visit Plan Vestibular ex's. Check hip rot mobility PROM and strength. Initiate ex/HEP: ankle ROM and strengthening, hip strengthening (ext, AB), Aerobic ex for hips and discuss ADIS Perceived Exertion Scale for ex between very light and fairly light ( 110-110). Education: posture Balance training and gait training with head movements.
--- NOTE | 2022-10-12 16:51 | PT.OTN ---
Current Diagnoses Other abnormalities of gait and mobility (10/12/22) Physical Therapy Treatment Note PT-OP-A Visit Information Start: 09/29/22 19:36 Freq: Status: Active Protocol: Document 10/12/22 13:01 LRN (Rec: 10/12/22 13:49 LRN [id number]) Out-Patient Physical Therapy Visit Information Visit Information Visit Type Treatment Note Visit Start Time 13:01 Visit Stop Time 13:48 Total Visit Minutes 47 Visit Number 4 Evaluation Information Evaluation Date 10/02/22 Precautions Precautions Heart ablation 01/2022, arthritis, dizziness with falls x 2 last year, back and neck pain worse after falls hitting his head. PT-OP-B Current Condition Start: 09/29/22 19:36 Freq: Status: Active Protocol: Document 10/02/22 11:22 LRN (Rec: 10/02/22 12:35 LRN [id number]) Current Condition History of Current Condition Onset Date 2 yrs ago. Current Complaints Gait and mobility and dizziness w/gait/mobility. History of Current Condition States he has dizziness problems and is seeking PT because he got a new health care provider who has referred him to physical therapy. Pt reports falling a couple time, once last summer and most recently in April. Pt was by himself and falls occured due to same situation, sitting on chair and pushing himself away from a table. The chair legs caught on carpet, causing him and the chair to fall backwards, hitting his head on hardwood floor. Pt also c/o pain in both hips that is progressively worsening. The pain is of same intensity. Pain when on his feet outside his home, after ~25 minutes (like at [facility]). Another complaint is that he wakes in the morning and lays on his back looking at his phone. When he sits up he feels dizzy. In the middle of the night gets up w/o dizziness because he is laying on his side. 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 Treatment Goals Patient/Caregiver Goals Pt goal is to increase LE strength and posture for walking with less pain >25'. Pt agreeable to LE strengthening, balance and gait training, and being placed on a HEP. Personal Factors Other Personal Factors That May Effect Arthritis, back and neck pain, Therapy/Recovery dizziness and falls leading to bkwd falls hitting his head . PT-OP-C Subjective Start: 09/29/22 19:36 Freq: Status: Active Protocol: Document 10/12/22 13:01 LRN (Rec: 10/12/22 13:49 LRN [id number]) OP-PT Subjective Patient Comments Patient Comments No dizziness getting up from bed and has been able to go up /down stairs to [facility] without LOB. Hips are hurting him, not able to lie on sides to sleep at night. 5 yrs ago walked a mile in 15 minutes. PT-OP-D Balance Start: 09/29/22 19:36 Freq: Status: Active Protocol: Document 10/02/22 11:22 LRN (Rec: 10/02/22 14:07 LRN [id number]) Balance Tests Single Limb Standing Single Limb- Right 0 Single Limb- Left 0 Semi-Tandem Standing Semi-Tandem Standing Balance 0 Pt not able to obtain position w/o LOB. PT-OP-E Functional Tests Start: 09/29/22 19:36 Freq: Status: Active Protocol: Document 10/02/22 11:22 LRN (Rec: 10/02/22 14:07 LRN [id number]) Functional Tests Dynamic Gait Index (DGI) Score 18 DGI Impairment Rating 20 to <40% Impaired (Score 15- 19) Timed Up and Go (TUG) Score 12 TUG Impairment Rating 20 to <40% Impaired (Score 12- 13) Other Gait speed Name of Test Gait speed Score 2.5 ft/sec Comment No AD, slow pace, mild gait dysfunction. PT-OP-G Mobility & Gait Start: 09/29/22 19:36 Freq: Status: Active Protocol: Document 10/02/22 11:22 LRN (Rec: 10/02/22 12:35 LRN [id number]) OP Mobility Evaluation Bed Mobility Rolling Independent but slow. Supine to and from Sit Independent. No c/o dizziness with short stay on his back. Transfers Sit to Stand Independent with use of UE's OP Gait Assessment Gait Gait Assistance Required: Independent Assistive Devices Assistive Device None Gait Deviations General Gait Pattern Decreased Stride Length, Decreased Feet Clearance, Flexed Trunk,Narrow Based Gait Factors Limiting Gait Function Factors Limiting Gait Function Decreased Strength,Limited Range of Motion,Poor Balance PT-OP-H Neuro Start: 09/29/22 19:36 Freq: Status: Active Protocol: Document 10/09/22 11:19 LRN (Rec: 10/09/22 12:15 LRN [id number]) Vital Signs Pulse Standing after sitting Pulse at Rest (bpm) 105 Pulse Assessment Method Auto cuff Sitting after supine Pulse at Rest (bpm) 99 Pulse Assessment Method Auto cuff Supine at start Pulse at Rest (bpm) 94 Pulse Assessment Method Auto cuff Blood Pressure Standing after sitting Blood Pressure (90/60-120/80 mmHg) 131/82 H Blood Pressure Source Automatic Cuff Sitting after supine Blood Pressure (90/60-120/80 mmHg) 137/84 H Blood Pressure Source Automatic Cuff Supine at start Blood Pressure (90/60-120/80 mmHg) 145/86 H Blood Pressure Source Automatic Cuff Comments Vital Signs Comments No dizziness on sitting after supine for 15' PT-OP-J Posture/Palpation/Skin Start: 09/29/22 19:36 Freq: Status: Active Protocol: Document 10/02/22 11:22 LRN (Rec: 10/02/22 12:35 LRN [id number]) Posture Evaluation Position Standing Head/C-Spine Posture Forward Head Shoulder Posture (L) Elevated Arm Posture (L) Internally Rotated,(R) Internally Rotated Weight Distribution Balanced Knee Posture (L) Genu Varus,(R) Genu Varus Ankle/Foot Posture (L) Calcaneal Inversion,(R) Calcaneal Inversion Foot Arch (L) Low Arch,(R) Low Arch Comments Posture Comments R shoulder noticeably low. 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 PT-OP-K Range of Motion Start: 09/29/22 19:36 Freq: Status: Active Protocol: Document 10/12/22 13:01 LRN (Rec: 10/12/22 13:49 LRN [id number]) Hip Goniometric Range of Motion Hip Right Active Hip ROM WFL No Testing Position Supine Flexion w/Knee Flexed 130 Straight Leg Raise 55 Internal Rotation 50 External Rotation 50 Left Active Hip ROM WFL No Testing Position Supine Flexion w/Knee Flexed 130 Straight Leg Raise 45 Internal Rotation 20 External Rotation 70 PT-OP-M Strength Start: 09/29/22 19:36 Freq: Status: Active Protocol: Document 10/12/22 13:01 LRN (Rec: 10/12/22 13:49 LRN [id number]) Hip Strength Hip Manual Muscle Testing Right Flexion (L2) 2+ Poor+ Extension (S1) 2- Poor- Abduction 5 Normal Adduction 2 Poor Comments Pt lacks hip Ext Left Flexion (L2) 2+ Poor+ Extension (S1) 2- Poor- Abduction 2+ Poor+ Adduction 3 Fair Comments Pt lacks hip Ext PT-OP-Q Treatments Start: 09/29/22 19:36 Freq: Status: Active Protocol: Document 10/12/22 13:01 LRN (Rec: 10/12/22 13:49 [facility] [id number]) Cardio Equipment Recumbent Stepper (Sci-Fit) Duration (Minutes) 17 Resistance 1 Seat Position 15 Therapeutic Exercises Supine Exercises Hip Flexor stretch Supine Exercise Name Hip Flexor stretch f/b active 10 hip ext to neutral Side bilateral Reps/Minutes 11 breath hold Comments Extra time taken to determine max tolerated stretch and time hold for 1 min SLR Supine Exercise Name SLR Side bilateral Reps/Minutes 8x Comments Cuing for breathing, TA tightening Hip ER stretch Supine Exercise Name Fig 4 stretch (R>L), f/b 10x active stretch Side right Reps/Minutes 11 breath hold Comments Extra time taken to determine max tolerated stretch and time hold for 1 min Piriformis stretch Supine Exercise Name Pirformis stretch (L>R, ankle over knee) Side left Reps/Minutes 11 breath hold x 2 Comments Extra time taken to determine max tolerated stretch and time hold for 1 min Lateral Hip stretch Supine Exercise Name Lateral Hip stretch (L>R) Side bilateral Reps/Minutes 11 breath hold Comments Extra time taken to determine max tolerated stretch and time hold for 1 min Prone Exercises Hip Ext Prone Exercise Name Hip Ext Side bilateral Reps/Minutes 8x Comments Much assist to keep trunk from rolling. No c/o back pain Sidelying Exercises Hip AB Sidelying Exercise Name Active AB Side bilateral Reps/Minutes 8x Comments Cuing to breath w/ex and to maintain proper positioning during ex PT-OP-T Assessment and Plan Start: 09/29/22 19:36 Freq: Status: Active Protocol: Document 10/12/22 13:01 LRN (Rec: 10/12/22 13:49 [facility] [id number]) Physical Therapy Assessment Goals Four Impairment Dizziness supine to sit in mornings. Impairment Dizziness in mornings after lying supine for extended period of time. Group Home Goal (LTG) Pt will not have dizziness with bed mobility and transfers. 10/09/22: Pt no having dizziness with transfer sup<> sit<>stand. LTG Duration 01/01/23 progressing Three Impairment Gait Impairment Gait with decreased stride length (R>L), decreased feet clearance, flexed at hips, narrow MARILYNN. DGI score 18 (20<40% impaired, score 15-19) Hip strength: Flex 2+/5 nickie, ext 2-/5 nickie, AB 5/5 R, 2+/5 L , AD 2/5 R, 3/5 L. Hip AROM: Hip Ext - lacks ~10 deg's to neutral. Short Term Goal (STG) Improve hip strength and mobility and improve DGI score >19. STG Duration 11/16/22 Group Home Goal (LTG) Pt will be able to improve posture and LE strength for walking and will report less pain after 25 minutes of walking for shopping ([employer]). LTG Duration 01/01/23 Two Impairment Balance Impairment Ankle AROM: DF is 0 deg's nickie , IV is 0 deg's R, 10 deg's L, EV is 0 deg's R, 5 deg's L. Short Term Goal (STG) Improve ankle mobility (DF, IV , EV). STG Duration 11/16/22 Group Home Goal (LTG) Pt confidence will improve per ABC score with greater use of ankle stratedgy for standing balance. LTG Duration 01/01/23 One Impairment HEP Short Term Goal (STG) Pt will be educated in proper standing/sitting posture. STG Duration 11/16/22 Group Home Goal (LTG) Pt will be independent in a self care HEP of balance, hip/ ankle mobility and strengthening ex's, and knee strengthening. Pt will initiate an home walking program. LTG Duration 01/01/23 Assessment Summary Assessment Hip PROM is limited with L IR and R ER and hip ext. Hip strength is quite limited bilaterally. Active hip ext limited by lack of mobility. Physical Therapy Plan Frequency and Duration Frequency of Treatment 2x/Week Plan of Care Start Date 10/02/22 Plan of Care End Date 01/01/23 Next Visit Focus/Plan Next Note Type Treatment Note Next Visit Plan Vestibular ex's. Issue HEP: hip strengthening ex's (SLR, sidelie hip AB/AD, Clamshell, bridge, standing or prone hip ext). Initiate ex/HEP: Ankle ROM and strengthening, progress hip strengthening, Education: normal posture Aerobic ex for hips: under ADIS Perceived Exertion Scale for ex between very light and fairly light (101-110). Balance training and gait training with head movements.
--- NOTE | 2022-10-13 12:44 | PT.OTN ---
Current Diagnoses Other abnormalities of gait and mobility (10/13/22) Physical Therapy Treatment Note PT-OP-A Visit Information Start: 09/29/22 19:36 Freq: Status: Active Protocol: Document 10/13/22 09:07 AMB (Rec: 10/13/22 09:49 AMB [id number]) Out-Patient Physical Therapy Visit Information Visit Information Visit Type Treatment Note Visit Start Time 09:00 Visit Stop Time 09:45 Total Visit Minutes 45 Visit Number 5 PT-OP-B Current Condition Start: 09/29/22 19:36 Freq: Status: Active Protocol: Document 10/02/22 11:22 LRN (Rec: 10/02/22 12:35 LRN [id number]) Current Condition History of Current Condition Onset Date 2 yrs ago. Current Complaints Gait and mobility and dizziness w/gait/mobility. History of Current Condition States he has dizziness problems and is seeking PT because he got a new health care provider who has referred him to physical therapy. Pt reports falling a couple time, once last summer and most recently in April. Pt was by himself and falls occured due to same situation, sitting on chair and pushing himself away from a table. The chair legs caught on carpet, causing him and the chair to fall backwards, hitting his head on hardwood floor. Pt also c/o pain in both hips that is progressively worsening. The pain is of same intensity. Pain when on his feet outside his home, after ~25 minutes (like at [employer]). Another complaint is that he wakes in the morning and lays on his back looking at his phone. When he sits up he feels dizzy. In the middle of the night gets up w/o dizziness because he is laying on his side. 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 Treatment Goals Patient/Caregiver Goals Pt goal is to increase LE strength and posture for walking with less pain >25'. Pt agreeable to LE strengthening, balance and gait training, and being placed on a HEP. Personal Factors Other Personal Factors That May Effect Arthritis, back and neck pain, Therapy/Recovery dizziness and falls leading to bkwd falls hitting his head . PT-OP-C Subjective Start: 09/29/22 19:36 Freq: Status: Active Protocol: Document 10/13/22 09:07 AMB (Rec: 10/13/22 09:49 AMB [id number]) OP-PT Subjective Patient Comments Patient Comments Continues to not have dizziness when getting up from bed. Hip pain continues to limit activity. PT-OP-D Balance Start: 09/29/22 19:36 Freq: Status: Active Protocol: Document 10/02/22 11:22 LRN (Rec: 10/02/22 14:07 LRN [id number]) Balance Tests Single Limb Standing Single Limb- Right 0 Single Limb- Left 0 Semi-Tandem Standing Semi-Tandem Standing Balance 0 Pt not able to obtain position w/o LOB. PT-OP-E Functional Tests Start: 09/29/22 19:36 Freq: Status: Active Protocol: Document 10/02/22 11:22 LRN (Rec: 10/02/22 14:07 LRN [id number]) Functional Tests Dynamic Gait Index (DGI) Score 18 DGI Impairment Rating 20 to <40% Impaired (Score 15- 19) Timed Up and Go (TUG) Score 12 TUG Impairment Rating 20 to <40% Impaired (Score 12- 13) Other Gait speed Name of Test Gait speed Score 2.5 ft/sec Comment No AD, slow pace, mild gait dysfunction. PT-OP-G Mobility & Gait Start: 09/29/22 19:36 Freq: Status: Active Protocol: Document 10/02/22 11:22 LRN (Rec: 10/02/22 12:35 LRN [id number]) OP Mobility Evaluation Bed Mobility Rolling Independent but slow. Supine to and from Sit Independent. No c/o dizziness with short stay on his back. Transfers Sit to Stand Independent with use of UE's OP Gait Assessment Gait Gait Assistance Required: Independent Assistive Devices Assistive Device None Gait Deviations General Gait Pattern Decreased Stride Length, Decreased Feet Clearance, Flexed Trunk,Narrow Based Gait Factors Limiting Gait Function Factors Limiting Gait Function Decreased Strength,Limited Range of Motion,Poor Balance PT-OP-H Neuro Start: 09/29/22 19:36 Freq: Status: Active Protocol: Document 10/09/22 11:19 LRN (Rec: 10/09/22 12:15 LRN [id number]) Vital Signs Pulse Standing after sitting Pulse at Rest (bpm) 105 Pulse Assessment Method Auto cuff Sitting after supine Pulse at Rest (bpm) 99 Pulse Assessment Method Auto cuff Supine at start Pulse at Rest (bpm) 94 Pulse Assessment Method Auto cuff Blood Pressure Standing after sitting Blood Pressure (90/60-120/80 mmHg) 131/82 H Blood Pressure Source Automatic Cuff Sitting after supine Blood Pressure (90/60-120/80 mmHg) 137/84 H Blood Pressure Source Automatic Cuff Supine at start Blood Pressure (90/60-120/80 mmHg) 145/86 H Blood Pressure Source Automatic Cuff Comments Vital Signs Comments No dizziness on sitting after supine for 15' PT-OP-J Posture/Palpation/Skin Start: 09/29/22 19:36 Freq: Status: Active Protocol: Document 10/02/22 11:22 LRN (Rec: 10/02/22 12:35 LRN [id number]) Posture Evaluation Position Standing Head/C-Spine Posture Forward Head Shoulder Posture (L) Elevated Arm Posture (L) Internally Rotated,(R) Internally Rotated Weight Distribution Balanced Knee Posture (L) Genu Varus,(R) Genu Varus Ankle/Foot Posture (L) Calcaneal Inversion,(R) Calcaneal Inversion Foot Arch (L) Low Arch,(R) Low Arch Comments Posture Comments R shoulder noticeably low. 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 PT-OP-K Range of Motion Start: 09/29/22 19:36 Freq: Status: Active Protocol: Document 10/12/22 13:01 LRN (Rec: 10/12/22 13:49 LRN [id number]) Hip Goniometric Range of Motion Hip Right Active Hip ROM WFL No Testing Position Supine Flexion w/Knee Flexed 130 Straight Leg Raise 55 Internal Rotation 50 External Rotation 50 Left Active Hip ROM WFL No Testing Position Supine Flexion w/Knee Flexed 130 Straight Leg Raise 45 Internal Rotation 20 External Rotation 70 PT-OP-M Strength Start: 09/29/22 19:36 Freq: Status: Active Protocol: Document 10/12/22 13:01 LRN (Rec: 10/12/22 13:49 LRN [id number]) Hip Strength Hip Manual Muscle Testing Right Flexion (L2) 2+ Poor+ Extension (S1) 2- Poor- Abduction 5 Normal Adduction 2 Poor Comments Pt lacks hip Ext Left Flexion (L2) 2+ Poor+ Extension (S1) 2- Poor- Abduction 2+ Poor+ Adduction 3 Fair Comments Pt lacks hip Ext PT-OP-Q Treatments Start: 09/29/22 19:36 Freq: Status: Active Protocol: Document 10/13/22 09:00 AMB (Rec: 10/13/22 12:43 AMB [id number]) Therapeutic Exercises Standing Exercises heel raises Standing Exercise Name double leg then single leg Comments single leg challenging 5 reps, 10 for double leg Gait Training Gait Activity 6MWT Comments no AD 1,180 ft -- 1,500-1,700 would be more age/gender norm. Pt continues to ambulate with WBOS. Neuro Re-Education Treatment Vestibular Rehabilitation NBOS Details corner eyes open/eyes closed Comments then eyes open with horizontal head turns Other Activities rock and reach Reps/Duration 10 Comments with UE support cued heel raise and toe lift PT-OP-T Assessment and Plan Start: 09/29/22 19:36 Freq: Status: Active Protocol: Document 10/13/22 09:07 AMB (Rec: 10/13/22 09:49 AMB [id number]) Physical Therapy Assessment Goals Four Impairment Dizziness supine to sit in mornings. Impairment Dizziness in mornings after lying supine for extended period of time. Leather Heel Breaster Goal (LTG) Pt will not have dizziness with bed mobility and transfers. 10/09/22: Pt no having dizziness with transfer sup<> sit<>stand. LTG Duration 01/01/23 progressing Three Impairment Gait Impairment Gait with decreased stride length (R>L), decreased feet clearance, flexed at hips, narrow MARILYNN. DGI score 18 (20<40% impaired, score 15-19) Hip strength: Flex 2+/5 nickie, ext 2-/5 nickie, AB 5/5 R, 2+/5 L , AD 2/5 R, 3/5 L. Hip AROM: Hip Ext - lacks ~10 deg's to neutral. Short Term Goal (STG) Improve hip strength and mobility and improve DGI score >19. STG Duration 11/16/22 Leather Heel Breaster Goal (LTG) Pt will be able to improve posture and LE strength for walking and will report less pain after 25 minutes of walking for shopping ([employer]). LTG Duration 01/01/23 Two Impairment Balance Impairment Ankle AROM: DF is 0 deg's nickie , IV is 0 deg's R, 10 deg's L, EV is 0 deg's R, 5 deg's L. Short Term Goal (STG) Improve ankle mobility (DF, IV , EV). STG Duration 11/16/22 Group Home Goal (LTG) Pt confidence will improve per ABC score with greater use of ankle stratedgy for standing balance. LTG Duration 01/01/23 One Impairment HEP Short Term Goal (STG) Pt will be educated in proper standing/sitting posture. STG Duration 11/16/22 Leather Heel Breaster Goal (LTG) Pt will be independent in a self care HEP of balance, hip/ ankle mobility and strengthening ex's, and knee strengthening. Pt will initiate an home walking program. LTG Duration 01/01/23 Assessment Summary Assessment 6MWT 1,188ft. Instructed in progressive walking program. Pt challenged by balance exercises, encouraged to do them in corner or next to kitchen counter for firm support. Pt's weakness including ankle/calf weakness contributes to balance impairments. Physical Therapy Plan Frequency and Duration Frequency of Treatment 2x/Week Plan of Care Start Date 10/02/22 Plan of Care End Date 01/01/23 Therapeutic Interventions Therapeutic Interventions Balance Training,Gait Training ,Home Exercise Program,Joint Mobilizations,Manual Therapy, Neuromuscular Re-education, Patient/Caregiver Education, Self-Care/Home Management, Therapeutic Activities, Therapeutic Exercises, Vestibular Rehabilitation Modalities Cold Pack/Ice Massage,Hot Packs Next Visit Focus/Plan Next Note Type Treatment Note Next Visit Plan Vestibular ex's. Issue HEP: hip strengthening ex's (SLR, sidelie hip AB/AD, Clamshell, bridge, standing or prone hip ext). Initiate ex/HEP: Ankle ROM and strengthening, progress hip strengthening, Education: normal posture Aerobic ex for hips: under ADIS Perceived Exertion Scale for ex between very light and fairly light (101-110). Balance training and gait training with head movements.
--- NOTE | 2022-10-19 08:29 | PT-OP ANOTE ---
Pt called cancel appt today <24hrs had family issue come up unable to attend. Cancelled / appt, stated to many appts/ conflict.
--- NOTE | 2022-10-23 12:08 | PT.OTN ---
Current Diagnoses Other abnormalities of gait and mobility (10/23/22) Physical Therapy Treatment Note PT-OP-A Visit Information Start: 09/29/22 19:36 Freq: Status: Active Protocol: Document 10/23/22 11:22 LRN (Rec: 10/23/22 12:07 LRN [id number]) Out-Patient Physical Therapy Visit Information Visit Information Visit Type Treatment Note Visit Start Time 11:22 Visit Stop Time 12:04 Total Visit Minutes 42 Visit Number 6 PT-OP-B Current Condition Start: 09/29/22 19:36 Freq: Status: Active Protocol: Document 10/02/22 11:22 LRN (Rec: 10/02/22 12:35 LRN [id number]) Current Condition History of Current Condition Onset Date 2 yrs ago. Current Complaints Gait and mobility and dizziness w/gait/mobility. History of Current Condition States he has dizziness problems and is seeking PT because he got a new health care provider who has referred him to physical therapy. Pt reports falling a couple time, once last summer and most recently in April. Pt was by himself and falls occured due to same situation, sitting on chair and pushing himself away from a table. The chair legs caught on carpet, causing him and the chair to fall backwards, hitting his head on hardwood floor. Pt also c/o pain in both hips that is progressively worsening. The pain is of same intensity. Pain when on his feet outside his home, after ~25 minutes (like at [employer]). Another complaint is that he wakes in the morning and lays on his back looking at his phone. When he sits up he feels dizzy. In the middle of the night gets up w/o dizziness because he is laying on his side. 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 Treatment Goals Patient/Caregiver Goals Pt goal is to increase LE strength and posture for walking with less pain >25'. Pt agreeable to LE strengthening, balance and gait training, and being placed on a HEP. Personal Factors Other Personal Factors That May Effect Arthritis, back and neck pain, Therapy/Recovery dizziness and falls leading to bkwd falls hitting his head . PT-OP-C Subjective Start: 09/29/22 19:36 Freq: Status: Active Protocol: Document 10/23/22 11:22 LRN (Rec: 10/23/22 12:07 LRN [id number]) OP-PT Subjective Patient Comments Patient Comments For past 2 weeks did 4 blocks. States he doesn't have dizziness walking, has a feeling of lack of balance. Sometimes has feeling of lack of balance. Going up his brothers steps he feels he can 't get up the steps due to lack of balance and the steps are deep. States his heart no longer goes into A.Fib after the Ablation done January of 2022 . PT-OP-D Balance Start: 09/29/22 19:36 Freq: Status: Active Protocol: Document 10/02/22 11:22 LRN (Rec: 10/02/22 14:07 LRN [id number]) Balance Tests Single Limb Standing Single Limb- Right 0 Single Limb- Left 0 Semi-Tandem Standing Semi-Tandem Standing Balance 0 Pt not able to obtain position w/o LOB. PT-OP-E Functional Tests Start: 09/29/22 19:36 Freq: Status: Active Protocol: Document 10/02/22 11:22 LRN (Rec: 10/02/22 14:07 LRN [id number]) Functional Tests Dynamic Gait Index (DGI) Score 18 DGI Impairment Rating 20 to <40% Impaired (Score 15- 19) Timed Up and Go (TUG) Score 12 TUG Impairment Rating 20 to <40% Impaired (Score 12- 13) Other Gait speed Name of Test Gait speed Score 2.5 ft/sec Comment No AD, slow pace, mild gait dysfunction. PT-OP-G Mobility & Gait Start: 09/29/22 19:36 Freq: Status: Active Protocol: Document 10/02/22 11:22 LRN (Rec: 10/02/22 12:35 LRN [id number]) OP Mobility Evaluation Bed Mobility Rolling Independent but slow. Supine to and from Sit Independent. No c/o dizziness with short stay on his back. Transfers Sit to Stand Independent with use of UE's OP Gait Assessment Gait Gait Assistance Required: Independent Assistive Devices Assistive Device None Gait Deviations General Gait Pattern Decreased Stride Length, Decreased Feet Clearance, Flexed Trunk,Narrow Based Gait Factors Limiting Gait Function Factors Limiting Gait Function Decreased Strength,Limited Range of Motion,Poor Balance PT-OP-H Neuro Start: 09/29/22 19:36 Freq: Status: Active Protocol: Document 10/09/22 11:19 LRN (Rec: 10/09/22 12:15 LRN [id number]) Vital Signs Pulse Standing after sitting Pulse at Rest (bpm) 105 Pulse Assessment Method Auto cuff Sitting after supine Pulse at Rest (bpm) 99 Pulse Assessment Method Auto cuff Supine at start Pulse at Rest (bpm) 94 Pulse Assessment Method Auto cuff Blood Pressure Standing after sitting Blood Pressure (90/60-120/80 mmHg) 131/82 H Blood Pressure Source Automatic Cuff Sitting after supine Blood Pressure (90/60-120/80 mmHg) 137/84 H Blood Pressure Source Automatic Cuff Supine at start Blood Pressure (90/60-120/80 mmHg) 145/86 H Blood Pressure Source Automatic Cuff Comments Vital Signs Comments No dizziness on sitting after supine for 15' PT-OP-J Posture/Palpation/Skin Start: 09/29/22 19:36 Freq: Status: Active Protocol: Document 10/02/22 11:22 LRN (Rec: 10/02/22 12:35 LRN [id number]) Posture Evaluation Position Standing Head/C-Spine Posture Forward Head Shoulder Posture (L) Elevated Arm Posture (L) Internally Rotated,(R) Internally Rotated Weight Distribution Balanced Knee Posture (L) Genu Varus,(R) Genu Varus Ankle/Foot Posture (L) Calcaneal Inversion,(R) Calcaneal Inversion Foot Arch (L) Low Arch,(R) Low Arch Comments Posture Comments R shoulder noticeably low. 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 PT-OP-K Range of Motion Start: 09/29/22 19:36 Freq: Status: Active Protocol: Document 10/12/22 13:01 LRN (Rec: 10/12/22 13:49 LRN [id number]) Hip Goniometric Range of Motion Hip Right Active Hip ROM WFL No Testing Position Supine Flexion w/Knee Flexed 130 Straight Leg Raise 55 Internal Rotation 50 External Rotation 50 Left Active Hip ROM WFL No Testing Position Supine Flexion w/Knee Flexed 130 Straight Leg Raise 45 Internal Rotation 20 External Rotation 70 PT-OP-M Strength Start: 09/29/22 19:36 Freq: Status: Active Protocol: Document 10/12/22 13:01 LRN (Rec: 10/12/22 13:49 LRN [id number]) Hip Strength Hip Manual Muscle Testing Right Flexion (L2) 2+ Poor+ Extension (S1) 2- Poor- Abduction 5 Normal Adduction 2 Poor Comments Pt lacks hip Ext Left Flexion (L2) 2+ Poor+ Extension (S1) 2- Poor- Abduction 2+ Poor+ Adduction 3 Fair Comments Pt lacks hip Ext PT-OP-Q Treatments Start: 09/29/22 19:36 Freq: Status: Active Protocol: Document 10/23/22 11:22 LRN (Rec: 10/23/22 12:07 LRN [id number]) Cardio Equipment Recumbent Stepper (Sci-Fit) Duration (Minutes) 10 Resistance 2 Seat Position 15 Therapeutic Exercises Supine Exercises SLR Supine Exercise Name SLR Side bilateral Reps/Minutes 15x Comments Cuing for breathing, TA tightening Prone Exercises Hip Ext Prone Exercise Name Hip Ext Side bilateral Reps/Minutes 15x Sidelying Exercises Clamshell Sidelying Exercise Name Clamshell Side bilateral Reps/Minutes 15x 2 Comments Extra time for to maximize positioning/core stab and lift of knee. Hip AB Sidelying Exercise Name Hip AB Side bilateral Reps/Minutes 10x Sitting Exercises Knee Ext strengthening Sitting Exercise Name LAQ Side bilateral Reps/Minutes 5 SH x 20 Standing Exercises heel raises Standing Exercise Name double leg then single leg Side bilateral Comments single leg challenging 8 reps, 10 for double leg Neuro Re-Education Treatment Other Activities rock and reach Reps/Duration 10x Comments with UE support cued heel raise and toe lift Self-Care/Home Management Treatment Activities Self-Care/Home Management Activities Issued HEP: Hip strengthening : SLR, sidelie hip AB & clamshell, prone hip ext. PT-OP-T Assessment and Plan Start: 09/29/22 19:36 Freq: Status: Active Protocol: Document 10/23/22 11:22 LRN (Rec: 10/23/22 12:07 LRN [id number]) Physical Therapy Assessment Goals Four Impairment Dizziness supine to sit in mornings. Impairment Dizziness in mornings after lying supine for extended period of time. Skilled Nursing Goal (LTG) Pt will not have dizziness with bed mobility and transfers. 10/09/22: Pt no having dizziness with transfer sup<> sit<>stand. LTG Duration 01/01/23 progressing Three Impairment Gait Impairment Gait with decreased stride length (R>L), decreased feet clearance, flexed at hips, narrow MARILYNN. DGI score 18 (20<40% impaired, score 15-19) Hip strength: Flex 2+/5 nickie, ext 2-/5 nickie, AB 5/5 R, 2+/5 L , AD 2/5 R, 3/5 L. Hip AROM: Hip Ext - lacks ~10 deg's to neutral. Short Term Goal (STG) Improve hip strength and mobility and improve DGI score >19. STG Duration 11/16/22 Skilled Nursing Goal (LTG) Pt will be able to improve posture and LE strength for walking and will report less pain after 25 minutes of walking for shopping ([employer]). LTG Duration 01/01/23 Two Impairment Balance Impairment Ankle AROM: DF is 0 deg's nickie , IV is 0 deg's R, 10 deg's L, EV is 0 deg's R, 5 deg's L. Short Term Goal (STG) Improve ankle mobility (DF, IV , EV). STG Duration 11/16/22 Clay Plant Treater Goal (LTG) Pt confidence will improve per ABC score with greater use of ankle stratedgy for standing balance. LTG Duration 01/01/23 One Impairment HEP Short Term Goal (STG) Pt will be educated in proper standing/sitting posture. STG Duration 11/16/22 Skilled Nursing Goal (LTG) Pt will be independent in a self care HEP of balance, hip/ ankle mobility and strengthening ex's, and knee strengthening. Pt will initiate an home walking program. LTG Duration 01/01/23 Assessment Summary Assessment Pt tolerating strengthening well. Pt is progressing in tolerance to ex with increased reps with exercise. Physical Therapy Plan Frequency and Duration Frequency of Treatment 2x/Week Plan of Care Start Date 10/02/22 Plan of Care End Date 01/01/23 Next Visit Focus/Plan Next Note Type Treatment Note Next Visit Plan Vestibular ex's. Issue HEP: hip strengthening ex's (SLR, sidelie hip AB/AD, Clamshell, bridge, standing or prone hip ext). Initiate ex/HEP: Ankle ROM and strengthening, progress hip strengthening, Education: normal posture Aerobic ex for hips: under ADIS Perceived Exertion Scale for ex between very light and fairly light (101-110). Balance training and gait training with head movements.
--- NOTE | 2022-11-03 15:18 | PT.OTN ---
Current Diagnoses Other abnormalities of gait and mobility (11/03/22) Physical Therapy Treatment Note PT-OP-A Visit Information Start: 09/29/22 19:36 Freq: Status: Active Protocol: Document 11/03/22 14:35 LRN (Rec: 11/03/22 15:16 LRN [id number]) Out-Patient Physical Therapy Visit Information Visit Information Visit Type Treatment Note Visit Start Time 14:35 Visit Stop Time 15:13 Total Visit Minutes 38 Visit Number 7 Evaluation Information Evaluation Date 10/02/22 Precautions Precautions Heart ablation 01/2022, arthritis, dizziness with falls x 2 last year, back and neck pain worse after falls hitting his head. PT-OP-B Current Condition Start: 09/29/22 19:36 Freq: Status: Active Protocol: Document 10/02/22 11:22 LRN (Rec: 10/02/22 12:35 LRN [id number]) Current Condition History of Current Condition Onset Date 2 yrs ago. Current Complaints Gait and mobility and dizziness w/gait/mobility. History of Current Condition States he has dizziness problems and is seeking PT because he got a new health care provider who has referred him to physical therapy. Pt reports falling a couple time, once last summer and most recently in April. Pt was by himself and falls occured due to same situation, sitting on chair and pushing himself away from a table. The chair legs caught on carpet, causing him and the chair to fall backwards, hitting his head on hardwood floor. Pt also c/o pain in both hips that is progressively worsening. The pain is of same intensity. Pain when on his feet outside his home, after ~25 minutes (like at [employer]). Another complaint is that he wakes in the morning and lays on his back looking at his phone. When he sits up he feels dizzy. In the middle of the night gets up w/o dizziness because he is laying on his side. 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 Treatment Goals Patient/Caregiver Goals Pt goal is to increase LE strength and posture for walking with less pain >25'. Pt agreeable to LE strengthening, balance and gait training, and being placed on a HEP. Personal Factors Other Personal Factors That May Effect Arthritis, back and neck pain, Therapy/Recovery dizziness and falls leading to bkwd falls hitting his head . PT-OP-C Subjective Start: 09/29/22 19:36 Freq: Status: Active Protocol: Document 11/03/22 14:35 LRN (Rec: 11/03/22 15:16 LRN [id number]) OP-PT Subjective Patient Comments Patient Comments States he is weak from his recent stomach flu. Walked 2100 feet (800 steps) this morning = 4 blocks (thinks 1 block is 700 ft). Not dizzy walking, but doesn't have perfect balance, doesn't every feel like he is going to fall walking. No dizziness with bed mobility or transfers . PT-OP-D Balance Start: 09/29/22 19:36 Freq: Status: Active Protocol: Document 10/02/22 11:22 LRN (Rec: 10/02/22 14:07 LRN [id number]) Balance Tests Single Limb Standing Single Limb- Right 0 Single Limb- Left 0 Semi-Tandem Standing Semi-Tandem Standing Balance 0 Pt not able to obtain position w/o LOB. PT-OP-E Functional Tests Start: 09/29/22 19:36 Freq: Status: Active Protocol: Document 10/02/22 11:22 LRN (Rec: 10/02/22 14:07 LRN [id number]) Functional Tests Dynamic Gait Index (DGI) Score 18 DGI Impairment Rating 20 to <40% Impaired (Score 15- 19) Timed Up and Go (TUG) Score 12 TUG Impairment Rating 20 to <40% Impaired (Score 12- 13) Other Gait speed Name of Test Gait speed Score 2.5 ft/sec Comment No AD, slow pace, mild gait dysfunction. PT-OP-G Mobility & Gait Start: 09/29/22 19:36 Freq: Status: Active Protocol: Document 10/02/22 11:22 LRN (Rec: 10/02/22 12:35 LRN [id number]) OP Mobility Evaluation Bed Mobility Rolling Independent but slow. Supine to and from Sit Independent. No c/o dizziness with short stay on his back. Transfers Sit to Stand Independent with use of UE's OP Gait Assessment Gait Gait Assistance Required: Independent Assistive Devices Assistive Device None Gait Deviations General Gait Pattern Decreased Stride Length, Decreased Feet Clearance, Flexed Trunk,Narrow Based Gait Factors Limiting Gait Function Factors Limiting Gait Function Decreased Strength,Limited Range of Motion,Poor Balance PT-OP-H Neuro Start: 09/29/22 19:36 Freq: Status: Active Protocol: Document 10/09/22 11:19 LRN (Rec: 10/09/22 12:15 LRN [id number]) Vital Signs Pulse Standing after sitting Pulse at Rest (bpm) 105 Pulse Assessment Method Auto cuff Sitting after supine Pulse at Rest (bpm) 99 Pulse Assessment Method Auto cuff Supine at start Pulse at Rest (bpm) 94 Pulse Assessment Method Auto cuff Blood Pressure Standing after sitting Blood Pressure (90/60-120/80 mmHg) 131/82 H Blood Pressure Source Automatic Cuff Sitting after supine Blood Pressure (90/60-120/80 mmHg) 137/84 H Blood Pressure Source Automatic Cuff Supine at start Blood Pressure (90/60-120/80 mmHg) 145/86 H Blood Pressure Source Automatic Cuff Comments Vital Signs Comments No dizziness on sitting after supine for 15' PT-OP-J Posture/Palpation/Skin Start: 09/29/22 19:36 Freq: Status: Active Protocol: Document 10/02/22 11:22 LRN (Rec: 10/02/22 12:35 LRN [id number]) Posture Evaluation Position Standing Head/C-Spine Posture Forward Head Shoulder Posture (L) Elevated Arm Posture (L) Internally Rotated,(R) Internally Rotated Weight Distribution Balanced Knee Posture (L) Genu Varus,(R) Genu Varus Ankle/Foot Posture (L) Calcaneal Inversion,(R) Calcaneal Inversion Foot Arch (L) Low Arch,(R) Low Arch Comments Posture Comments R shoulder noticeably low. 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 PT-OP-K Range of Motion Start: 09/29/22 19:36 Freq: Status: Active Protocol: Document 10/12/22 13:01 LRN (Rec: 10/12/22 13:49 LRN [id number]) Hip Goniometric Range of Motion Hip Right Active Hip ROM WFL No Testing Position Supine Flexion w/Knee Flexed 130 Straight Leg Raise 55 Internal Rotation 50 External Rotation 50 Left Active Hip ROM WFL No Testing Position Supine Flexion w/Knee Flexed 130 Straight Leg Raise 45 Internal Rotation 20 External Rotation 70 PT-OP-M Strength Start: 09/29/22 19:36 Freq: Status: Active Protocol: Document 10/12/22 13:01 LRN (Rec: 10/12/22 13:49 LRN [id number]) Hip Strength Hip Manual Muscle Testing Right Flexion (L2) 2+ Poor+ Extension (S1) 2- Poor- Abduction 5 Normal Adduction 2 Poor Comments Pt lacks hip Ext Left Flexion (L2) 2+ Poor+ Extension (S1) 2- Poor- Abduction 2+ Poor+ Adduction 3 Fair Comments Pt lacks hip Ext PT-OP-Q Treatments Start: 09/29/22 19:36 Freq: Status: Active Protocol: Document 11/03/22 14:35 LRN (Rec: 11/03/22 15:16 LRN [id number]) Cardio Equipment Recumbent Stepper (Sci-Fit) Duration (Minutes) 10 Resistance 1 Seat Position 15 Other ADIS Scale 10-11: Fairly light Therapeutic Exercises Supine Exercises Bridge Supine Exercise Name Bridge Reps/Minutes 15x 2 Comments Extra time for coordination of breathing with ex (exhale w/ lift) SLR Supine Exercise Name SLR Side bilateral Reps/Minutes 15x 2 Comments Cuing for exhale on lift; TA tightening Sidelying Exercises Clamshell Sidelying Exercise Name Clamshell Side bilateral Reps/Minutes 15x 2 Comments Extra time to maximize positioning/core stab and lift of knee. Hip AB Sidelying Exercise Name Hip AB Side bilateral Reps/Minutes 10x 2 Comments Cuing to Exhale on lift Standing Exercises heel raises Standing Exercise Name double leg then single leg Side bilateral Reps/Minutes 15x double leg, 6x each single leg Self-Care/Home Management Treatment Education Patient Education Home Exercise Program,Posture Other Education Reviewed with the pt ADIS scale for perceived exertion of 10-11 with exercise. Educated, discussed, and trained pt on proper standing and sitting posture. Activities Self-Care/Home Management Activities Issued & reviewed HEP: Hip flex (SLR), side hip AB & Clamshell, and Bridge. PT-OP-T Assessment and Plan Start: 09/29/22 19:36 Freq: Status: Active Protocol: Document 11/03/22 14:35 LRN (Rec: 11/03/22 15:16 LRN [id number]) Physical Therapy Assessment Goals Four Impairment Dizziness supine to sit in mornings. Impairment Dizziness in mornings after lying supine for extended period of time. Bench Assembler Battery Goal (LTG) Pt will not have dizziness with bed mobility and transfers. 10/09/22: Pt no having dizziness with transfer sup<> sit<>stand. 11/03/22: No dizziness with bed mobility or transfers. LTG Duration 01/01/23 (11/03/22: MET GOAL) Three Impairment Gait Impairment Gait with decreased stride length (R>L), decreased feet clearance, flexed at hips, narrow MARILYNN. DGI score 18 (20<40% impaired, score 15-19) Hip strength: Flex 2+/5 nickie, ext 2-/5 nickie, AB 5/5 R, 2+/5 L , AD 2/5 R, 3/5 L. Hip AROM: Hip Ext - lacks ~10 deg's to neutral. Short Term Goal (STG) Improve hip strength and mobility and improve DGI score >19. STG Duration 11/16/22 Bench Assembler Battery Goal (LTG) Pt will be able to improve posture and LE strength for walking and will report less pain after 25 minutes of walking for shopping ([employer]). LTG Duration 01/01/23 Two Impairment Balance Impairment Ankle AROM: DF is 0 deg's nickie , IV is 0 deg's R, 10 deg's L, EV is 0 deg's R, 5 deg's L. Short Term Goal (STG) Improve ankle mobility (DF, IV , EV). STG Duration 11/16/22 Prison Goal (LTG) Pt confidence will improve per ABC score with greater use of ankle stratedgy for standing balance. LTG Duration 01/01/23 One Impairment HEP Short Term Goal (STG) Pt will be educated in proper standing/sitting posture. STG Duration 11/16/22 Bench Assembler Battery Goal (LTG) Pt will be independent in a self care HEP of balance, hip/ ankle mobility and strengthening ex's, and knee strengthening. Pt will initiate an home walking program. LTG Duration 01/01/23 Assessment Summary Assessment Pt having no dizziness with bed mobiliity or transfers. He reports being weak from being ill, but showed minimal decrease in LE strength. Good attitude towards postural training. Physical Therapy Plan Frequency and Duration Frequency of Treatment 2x/Week Plan of Care Start Date 10/02/22 Plan of Care End Date 01/01/23 Next Visit Focus/Plan Next Note Type Treatment Note Next Visit Plan Vestibular ex's. Review HEP issued: hip strengthening ex's (SLR, sidelie hip AB/AD, Clamshell, bridge). Add to HEP: Standing or prone hip ext Initiate ex/HEP: Ankle ROM and strengthening, progress 3hip strengthening, Aerobic ex for hips: under ADIS Perceived Exertion Scale for ex between very light and fairly light (101-110). Balance training and gait training with head movements.
--- NOTE | 2022-11-05 13:05 | PT.OTN ---
Current Diagnoses Other abnormalities of gait and mobility (11/05/22) Physical Therapy Treatment Note PT-OP-A Visit Information Start: 09/29/22 19:36 Freq: Status: Active Protocol: Document 11/05/22 12:15 SP (Rec: 11/05/22 13:13 SP [id number]) Out-Patient Physical Therapy Visit Information Visit Information Visit Type Treatment Note Visit Start Time 12:15 Visit Stop Time 13:05 Total Visit Minutes 50 Visit Number 8 Number of FOUNDATION DIRECTOR Visits 1 Evaluation Information Evaluation Date 10/02/22 Precautions Precautions Heart ablation 01/2022, arthritis, dizziness with falls x 2 last year, back and neck pain worse after falls hitting his head. PT-OP-B Current Condition Start: 09/29/22 19:36 Freq: Status: Active Protocol: Document 10/02/22 11:22 LRN (Rec: 10/02/22 12:35 LRN [id number]) Current Condition History of Current Condition Onset Date 2 yrs ago. Current Complaints Gait and mobility and dizziness w/gait/mobility. History of Current Condition States he has dizziness problems and is seeking PT because he got a new health care provider who has referred him to physical therapy. Pt reports falling a couple time, once last summer and most recently in April. Pt was by himself and falls occured due to same situation, sitting on chair and pushing himself away from a table. The chair legs caught on carpet, causing him and the chair to fall backwards, hitting his head on hardwood floor. Pt also c/o pain in both hips that is progressively worsening. The pain is of same intensity. Pain when on his feet outside his home, after ~25 minutes (like at [employer]). Another complaint is that he wakes in the morning and lays on his back looking at his phone. When he sits up he feels dizzy. In the middle of the night gets up w/o dizziness because he is laying on his side. 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 Treatment Goals Patient/Caregiver Goals Pt goal is to increase LE strength and posture for walking with less pain >25'. Pt agreeable to LE strengthening, balance and gait training, and being placed on a HEP. Personal Factors Other Personal Factors That May Effect Arthritis, back and neck pain, Therapy/Recovery dizziness and falls leading to bkwd falls hitting his head . PT-OP-C Subjective Start: 09/29/22 19:36 Freq: Status: Active Protocol: Document 11/05/22 12:15 SP (Rec: 11/05/22 13:13 SP [id number]) OP-PT Subjective Patient Comments Patient Comments Pt reports was pretty soreness in LB, B legs were really tired. Did not do exercises yesterday other than standing posture due to recovery needed . PT-OP-D Balance Start: 09/29/22 19:36 Freq: Status: Active Protocol: Document 10/02/22 11:22 LRN (Rec: 10/02/22 14:07 LRN [id number]) Balance Tests Single Limb Standing Single Limb- Right 0 Single Limb- Left 0 Semi-Tandem Standing Semi-Tandem Standing Balance 0 Pt not able to obtain position w/o LOB. PT-OP-E Functional Tests Start: 09/29/22 19:36 Freq: Status: Active Protocol: Document 10/02/22 11:22 LRN (Rec: 10/02/22 14:07 LRN [id number]) Functional Tests Dynamic Gait Index (DGI) Score 18 DGI Impairment Rating 20 to <40% Impaired (Score 15- 19) Timed Up and Go (TUG) Score 12 TUG Impairment Rating 20 to <40% Impaired (Score 12- 13) Other Gait speed Name of Test Gait speed Score 2.5 ft/sec Comment No AD, slow pace, mild gait dysfunction. PT-OP-G Mobility & Gait Start: 09/29/22 19:36 Freq: Status: Active Protocol: Document 10/02/22 11:22 LRN (Rec: 10/02/22 12:35 LRN [id number]) OP Mobility Evaluation Bed Mobility Rolling Independent but slow. Supine to and from Sit Independent. No c/o dizziness with short stay on his back. Transfers Sit to Stand Independent with use of UE's OP Gait Assessment Gait Gait Assistance Required: Independent Assistive Devices Assistive Device None Gait Deviations General Gait Pattern Decreased Stride Length, Decreased Feet Clearance, Flexed Trunk,Narrow Based Gait Factors Limiting Gait Function Factors Limiting Gait Function Decreased Strength,Limited Range of Motion,Poor Balance PT-OP-H Neuro Start: 09/29/22 19:36 Freq: Status: Active Protocol: Document 10/09/22 11:19 LRN (Rec: 03/17/23 12:15 LRN [id number]) Vital Signs Pulse Standing after sitting Pulse at Rest (bpm) 105 Pulse Assessment Method Auto cuff Sitting after supine Pulse at Rest (bpm) 99 Pulse Assessment Method Auto cuff Supine at start Pulse at Rest (bpm) 94 Pulse Assessment Method Auto cuff Blood Pressure Standing after sitting Blood Pressure (90/60-120/80 mmHg) 131/82 H Blood Pressure Source Automatic Cuff Sitting after supine Blood Pressure (90/60-120/80 mmHg) 137/84 H Blood Pressure Source Automatic Cuff Supine at start Blood Pressure (90/60-120/80 mmHg) 145/86 H Blood Pressure Source Automatic Cuff Comments Vital Signs Comments No dizziness on sitting after supine for 15' PT-OP-J Posture/Palpation/Skin Start: 09/29/22 19:36 Freq: Status: Active Protocol: Document 10/02/22 11:22 LRN (Rec: 10/02/22 12:35 LRN [id number]) Posture Evaluation Position Standing Head/C-Spine Posture Forward Head Shoulder Posture (L) Elevated Arm Posture (L) Internally Rotated,(R) Internally Rotated Weight Distribution Balanced Knee Posture (L) Genu Varus,(R) Genu Varus Ankle/Foot Posture (L) Calcaneal Inversion,(R) Calcaneal Inversion Foot Arch (L) Low Arch,(R) Low Arch Comments Posture Comments R shoulder noticeably low. 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 PT-OP-K Range of Motion Start: 09/29/22 19:36 Freq: Status: Active Protocol: Document 10/12/22 13:01 LRN (Rec: 10/12/22 13:49 LRN [id number]) Hip Goniometric Range of Motion Hip Right Active Hip ROM WFL No Testing Position Supine Flexion w/Knee Flexed 130 Straight Leg Raise 55 Internal Rotation 50 External Rotation 50 Left Active Hip ROM WFL No Testing Position Supine Flexion w/Knee Flexed 130 Straight Leg Raise 45 Internal Rotation 20 External Rotation 70 PT-OP-M Strength Start: 09/29/22 19:36 Freq: Status: Active Protocol: Document 10/12/22 13:01 LRN (Rec: 10/12/22 13:49 LRN [id number]) Hip Strength Hip Manual Muscle Testing Right Flexion (L2) 2+ Poor+ Extension (S1) 2- Poor- Abduction 5 Normal Adduction 2 Poor Comments Pt lacks hip Ext Left Flexion (L2) 2+ Poor+ Extension (S1) 2- Poor- Abduction 2+ Poor+ Adduction 3 Fair Comments Pt lacks hip Ext PT-OP-Q Treatments Start: 09/29/22 19:36 Freq: Status: Active Protocol: Document 11/05/22 12:15 SP (Rec: 11/05/22 13:13 SP [id number]) Cardio Equipment Recumbent Stepper (Sci-Fit) Duration (Minutes) 10 Resistance 2 ADIS 10-11, increased 3 ADIS 13 Seat Position 15 Other LEs only, 1.20 miles Therapeutic Exercises Supine Exercises TA engagement Supine Exercise Name instruction during bridge Reps/Minutes 5SH x10 Comments improved little to no LB recruitment during bridge and SLR Bridge Supine Exercise Name Bridge, 11/05 updated segmental bridge Reps/Minutes x15 Comments cued PPT/ TA with almost no LB recruitment SLR Supine Exercise Name SLR Side bilateral Reps/Minutes 15x 2 Comments Cuing for exhale on lift; TA tightening Sidelying Exercises Clamshell Sidelying Exercise Name Clamshell Side bilateral Reps/Minutes 10 Comments cued slow lift lower, top hand on hip better no roll back Hip AB Sidelying Exercise Name Hip AB Side bilateral Reps/Minutes 10x 2 Comments Cuing knees straight, core engaged, reviewed Exhale on lift Standing Exercises hip abd, ext Standing Exercise Name added to HEP Equipment Used facing rail support Reps/Minutes x10 each Comments cued tall posturing, core, effort glut/hip abd fac- no LB arch Self-Care/Home Management Treatment Education Patient Education Home Exercise Program,Posture Other Education Reviewed with the pt ADIS scale 13 throughout tx. Added standing hip abd, extension. Discussed mindful of TA/ PPT to decrease LB recruitment throughout ther ex, improved self corrections. PT-OP-T Assessment and Plan Start: 09/29/22 19:36 Freq: Status: Active Protocol: Document 11/05/22 12:15 SP (Rec: 11/05/22 13:13 SP [id number]) Physical Therapy Assessment Goals Four Impairment Dizziness supine to sit in mornings. Impairment Dizziness in mornings after lying supine for extended period of time. Correction Goal (LTG) Pt will not have dizziness with bed mobility and transfers. 10/09/22: Pt no having dizziness with transfer sup<> sit<>stand. 11/03/22: No dizziness with bed mobility or transfers. LTG Duration 01/01/23 (11/03/22: MET GOAL) Three Impairment Gait Impairment Gait with decreased stride length (R>L), decreased feet clearance, flexed at hips, narrow MARILYNN. DGI score 18 (20<40% impaired, score 15-19) Hip strength: Flex 2+/5 nickie, ext 2-/5 nickie, AB 5/5 R, 2+/5 L , AD 2/5 R, 3/5 L. Hip AROM: Hip Ext - lacks ~10 deg's to neutral. Short Term Goal (STG) Improve hip strength and mobility and improve DGI score >19. STG Duration 11/16/22 Public Message Service Supervisor Goal (LTG) Pt will be able to improve posture and LE strength for walking and will report less pain after 25 minutes of walking for shopping ([employer]). LTG Duration 01/01/23 Two Impairment Balance Impairment Ankle AROM: DF is 0 deg's nickie , IV is 0 deg's R, 10 deg's L, EV is 0 deg's R, 5 deg's L. Short Term Goal (STG) Improve ankle mobility (DF, IV , EV). STG Duration 11/16/22 Correction Goal (LTG) Pt confidence will improve per ABC score with greater use of ankle stratedgy for standing balance. LTG Duration 01/01/23 One Impairment HEP Short Term Goal (STG) Pt will be educated in proper standing/sitting posture. STG Duration 11/16/22 Public Message Service Supervisor Goal (LTG) Pt will be independent in a self care HEP of balance, hip/ ankle mobility and strengthening ex's, and knee strengthening. Pt will initiate an home walking program. 11/05/22: added standing hip abd, ext facing rail. LTG Duration 01/01/23 progressing 11/05/22 Assessment Summary Assessment Pt improved core fac and lessening LB recruitment with cuing for drawing lower ribcage toward table, modifying bridge segmental roll up/down less to no LB pain. Good self corrections of pelvic stability side hand on hip and taller posturing during standing added hip abd, extension today painfree in LB. Physical Therapy Plan Frequency and Duration Frequency of Treatment 2x/Week Plan of Care Start Date 10/02/22 Plan of Care End Date 01/01/23 Therapeutic Interventions Therapeutic Interventions Balance Training,Gait Training ,Home Exercise Program,Joint Mobilizations,Manual Therapy, Neuromuscular Re-education, Patient/Caregiver Education, Self-Care/Home Management, Therapeutic Activities, Therapeutic Exercises, Vestibular Rehabilitation Modalities Cold Pack/Ice Massage,Hot Packs Next Visit Focus/Plan Next Note Type Treatment Note Next Visit Plan Vestibular ex's. Review HEP standing: hip abd, ext. Add lee stepping, step taps progress step ups for ability enter brother's home no HR. Initiate ex/HEP: Ankle ROM and strengthening, progress 3hip strengthening, Aerobic ex for hips: under ADIS Perceived Exertion Scale for ex between very light and fairly light (101-110). Balance training and gait training with head movements.
--- NOTE | 2022-11-19 11:25 | PT.OTN ---
Current Diagnoses Other abnormalities of gait and mobility (11/19/22) Physical Therapy Treatment Note PT-OP-A Visit Information Start: 09/29/22 19:36 Freq: Status: Active Protocol: Document 11/19/22 10:35 SP (Rec: 11/19/22 11:37 SP [id number]) Out-Patient Physical Therapy Visit Information Visit Information Visit Type Treatment Note Visit Start Time 10:35 Visit Stop Time 11:25 Total Visit Minutes 50 Visit Number 9 Number of REGIONAL OPERATIONS DIRECTOR Visits 2 Evaluation Information Evaluation Date 10/02/22 Precautions Precautions Heart ablation 01/2022, arthritis, dizziness with falls x 2 last year, back and neck pain worse after falls hitting his head. PT-OP-B Current Condition Start: 09/29/22 19:36 Freq: Status: Active Protocol: Document 10/02/22 11:22 LRN (Rec: 10/02/22 12:35 LRN [id number]) Current Condition History of Current Condition Onset Date 2 yrs ago. Current Complaints Gait and mobility and dizziness w/gait/mobility. History of Current Condition States he has dizziness problems and is seeking PT because he got a new health care provider who has referred him to physical therapy. Pt reports falling a couple time, once last summer and most recently in April. Pt was by himself and falls occured due to same situation, sitting on chair and pushing himself away from a table. The chair legs caught on carpet, causing him and the chair to fall backwards, hitting his head on hardwood floor. Pt also c/o pain in both hips that is progressively worsening. The pain is of same intensity. Pain when on his feet outside his home, after ~25 minutes (like at [employer]). Another complaint is that he wakes in the morning and lays on his back looking at his phone. When he sits up he feels dizzy. In the middle of the night gets up w/o dizziness because he is laying on his side. 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 Treatment Goals Patient/Caregiver Goals Pt goal is to increase LE strength and posture for walking with less pain >25'. Pt agreeable to LE strengthening, balance and gait training, and being placed on a HEP. Personal Factors Other Personal Factors That May Effect Arthritis, back and neck pain, Therapy/Recovery dizziness and falls leading to bkwd falls hitting his head . PT-OP-C Subjective Start: 09/29/22 19:36 Freq: Status: Active Protocol: Document 11/19/22 10:35 SP (Rec: 11/19/22 11:37 SP [id number]) OP-PT Subjective Patient Comments Patient Comments Pt reports last Tu when woke up was very dizzy and lasted for 3 days to point that could take a step without fear will fall. States balance worsened since then without moving around and so set back. Has been able do block walks but 30 min support shopping cart at [facility]. PT-OP-D Balance Start: 09/29/22 19:36 Freq: Status: Active Protocol: Document 10/02/22 11:22 LRN (Rec: 10/02/22 14:07 LRN [id number]) Balance Tests Single Limb Standing Single Limb- Right 0 Single Limb- Left 0 Semi-Tandem Standing Semi-Tandem Standing Balance 0 Pt not able to obtain position w/o LOB. PT-OP-E Functional Tests Start: 09/29/22 19:36 Freq: Status: Active Protocol: Document 11/19/22 10:35 SP (Rec: 11/19/22 11:37 SP [id number]) Functional Tests Dynamic Gait Index (DGI) Score 16 (decrease by 2 from eval) DGI Impairment Rating 20 to <40% Impaired (Score 15- 19) PT-OP-G Mobility & Gait Start: 09/29/22 19:36 Freq: Status: Active Protocol: Document 10/02/22 11:22 LRN (Rec: 10/02/22 12:35 LRN [id number]) OP Mobility Evaluation Bed Mobility Rolling Independent but slow. Supine to and from Sit Independent. No c/o dizziness with short stay on his back. Transfers Sit to Stand Independent with use of UE's OP Gait Assessment Gait Gait Assistance Required: Independent Assistive Devices Assistive Device None Gait Deviations General Gait Pattern Decreased Stride Length, Decreased Feet Clearance, Flexed Trunk,Narrow Based Gait Factors Limiting Gait Function Factors Limiting Gait Function Decreased Strength,Limited Range of Motion,Poor Balance PT-OP-H Neuro Start: 09/29/22 19:36 Freq: Status: Active Protocol: Document 10/09/22 11:19 LRN (Rec: 10/09/22 12:15 LRN [id number]) Vital Signs Pulse Standing after sitting Pulse at Rest (bpm) 105 Pulse Assessment Method Auto cuff Sitting after supine Pulse at Rest (bpm) 99 Pulse Assessment Method Auto cuff Supine at start Pulse at Rest (bpm) 94 Pulse Assessment Method Auto cuff Blood Pressure Standing after sitting Blood Pressure (90/60-120/80 mmHg) 131/82 H Blood Pressure Source Automatic Cuff Sitting after supine Blood Pressure (90/60-120/80 mmHg) 137/84 H Blood Pressure Source Automatic Cuff Supine at start Blood Pressure (90/60-120/80 mmHg) 145/86 H Blood Pressure Source Automatic Cuff Comments Vital Signs Comments No dizziness on sitting after supine for 15' PT-OP-J Posture/Palpation/Skin Start: 09/29/22 19:36 Freq: Status: Active Protocol: Document 10/02/22 11:22 LRN (Rec: 10/02/22 12:35 [facility] [id number]) Posture Evaluation Position Standing Head/C-Spine Posture Forward Head Shoulder Posture (L) Elevated Arm Posture (L) Internally Rotated,(R) Internally Rotated Weight Distribution Balanced Knee Posture (L) Genu Varus,(R) Genu Varus Ankle/Foot Posture (L) Calcaneal Inversion,(R) Calcaneal Inversion Foot Arch (L) Low Arch,(R) Low Arch Comments Posture Comments R shoulder noticeably low. 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 PT-OP-K Range of Motion Start: 09/29/22 19:36 Freq: Status: Active Protocol: Document 10/12/22 13:01 LRN (Rec: 10/12/22 13:49 LR [id number]) Hip Goniometric Range of Motion Hip Right Active Hip ROM WFL No Testing Position Supine Flexion w/Knee Flexed 130 Straight Leg Raise 55 Internal Rotation 50 External Rotation 50 Left Active Hip ROM WFL No Testing Position Supine Flexion w/Knee Flexed 130 Straight Leg Raise 45 Internal Rotation 20 External Rotation 70 PT-OP-M Strength Start: 09/29/22 19:36 Freq: Status: Active Protocol: Document 10/12/22 13:01 LRN (Rec: 10/12/22 13:49 [facility] [id number]) Hip Strength Hip Manual Muscle Testing Right Flexion (L2) 2+ Poor+ Extension (S1) 2- Poor- Abduction 5 Normal Adduction 2 Poor Comments Pt lacks hip Ext Left Flexion (L2) 2+ Poor+ Extension (S1) 2- Poor- Abduction 2+ Poor+ Adduction 3 Fair Comments Pt lacks hip Ext PT-OP-Q Treatments Start: 09/29/22 19:36 Freq: Status: Active Protocol: Document 11/19/22 10:35 SP (Rec: 11/19/22 11:37 SP [id number]) Cardio Equipment Recumbent Stepper (Sci-Fit) Duration (Minutes) 10 Resistance 3 ADIS 13 Seat Position 16 Other LEs only, 1.28 miles, 53 RPMs Therapeutic Exercises Standing Exercises hip abd, ext Standing Exercise Name reviewed HEP Resistance added TB #2 (latex orange) loop adhikari below knees Equipment Used facing rail support Reps/Minutes 2 x10 each Comments cued tall posturing, core, effort glut/hip abd fac- no LB arch Neuro Re-Education Treatment Balance Activities corner balance Details stagger- added to HEP Equipment back wall, chair front Comments head turns away wall leans/wt shift Details added to HEP Reps/Duration x10 Comments heels on wall Self-Care/Home Management Treatment Education Patient Education Home Exercise Program,Posture, Safety Other Education Ed standing cued more fwd lean over feet and trunk L SB to neutral centering, seated posture support at LB for upright not slouched posturing . Extra time back step fully and slow hip hinge descent to sit chair due to quick flop in chair noticed once came in to gym didn't step back fully last 4 inches. PT-OP-T Assessment and Plan Start: 09/29/22 19:36 Freq: Status: Active Protocol: Document 11/19/22 10:35 SP (Rec: 11/19/22 11:37 SP [id number]) Physical Therapy Assessment Goals Four Impairment Dizziness supine to sit in mornings. Impairment Dizziness in mornings after lying supine for extended period of time. Shop Assistant Goal (LTG) Pt will not have dizziness with bed mobility and transfers. 10/09/22: Pt no having dizziness with transfer sup<> sit<>stand. 11/03/22: No dizziness with bed mobility or transfers. 11/19/22: has episode of dizziness last Tues for 3 days and unable walk around and now balance worsened. LTG Duration 01/01/23 regressed 11/19/22 Three Impairment Gait Impairment Gait with decreased stride length (R>L), decreased feet clearance, flexed at hips, narrow MARILYNN. DGI score 18 (20<40% impaired, score 15-19) Hip strength: Flex 2+/5 nickie, ext 2-/5 nickie, AB 5/5 R, 2+/5 L , AD 2/5 R, 3/5 L. Hip AROM: Hip Ext - lacks ~10 deg's to neutral. Short Term Goal (STG) Improve hip strength and mobility and improve DGI score >19. 11/19/22: regressed by 2 pts: DGI 20-40% impaired STG Duration 11/16/22 regressed from eval Shop Assistant Goal (LTG) Pt will be able to improve posture and LE strength for walking and will report less pain after 25 minutes of walking for shopping ([employer]). 11/19/22: partial met: [facility] min with cart support. LTG Duration 01/01/23 partial met 11/19/22 Two Impairment Balance Impairment Ankle AROM: DF is 0 deg's nickie , IV is 0 deg's R, 10 deg's L, EV is 0 deg's R, 5 deg's L. Short Term Goal (STG) Improve ankle mobility (DF, IV , EV). STG Duration 11/16/22 Shop Assistant Goal (LTG) Pt confidence will improve per ABC score with greater use of ankle stratedgy for standing balance. LTG Duration 01/01/23 One Impairment HEP Short Term Goal (STG) Pt will be educated in proper standing/sitting posture. 11/19/22: initiated but needs continued ed posturing seated/ standing added wall posture for HEP carryover effort feedback. STG Duration 11/16/22 initiated 11/19/22 Shop Assistant Goal (LTG) Pt will be independent in a self care HEP of balance, hip/ ankle mobility and strengthening ex's, and knee strengthening. Pt will initiate an home walking program. 11/05/22: added standing hip abd, ext facing rail. 11/19/22: added resistance hip abd/ext, stagger stance corner balance, fwd sways away from wall encourage COG more fwd during gait. LTG Duration 01/01/23 progressing 11/19/22 Assessment Summary Assessment Pt decreased DGI by 2 (), decreased activity level past week due to dizziness episode last TUes and lasting 3 days. See goal progression. Able to increase hip abd/ext against resistance and incorporated balance stagger and wall fwd wt shift to HEP to improve COG for gait. Noted improve more forward wt shifting and stability end tx walking out of clinic. Pt stated, feel good and sees improvement post PT txs. Physical Therapy Plan Frequency and Duration Frequency of Treatment 2x/Week Plan of Care Start Date 10/02/22 Plan of Care End Date 01/01/23 Therapeutic Interventions Therapeutic Interventions Balance Training,Gait Training ,Home Exercise Program,Joint Mobilizations,Manual Therapy, Neuromuscular Re-education, Patient/Caregiver Education, Self-Care/Home Management, Therapeutic Activities, Therapeutic Exercises, Vestibular Rehabilitation Modalities Cold Pack/Ice Massage,Hot Packs Next Visit Focus/Plan Next Note Type Progress Note Next Visit Plan PN due next tx, ABC questionaire. REview balance HEP, wall fwd leans. Vestibular ex's. Review HEP standing: hip abd, ext. Add lee stepping, step taps progress step ups for ability enter brother's home no HR. Initiate ex/HEP: Ankle ROM and strengthening, progress 3hip strengthening, Aerobic ex for hips: under ADIS Perceived Exertion Scale for ex between very light and fairly light (101-110). Balance training and gait training with head movements.
--- NOTE | 2022-11-27 15:51 | PT.OTN ---
Current Diagnoses Other abnormalities of gait and mobility (11/27/22) Physical Therapy Treatment Note PT-OP-A Visit Information Start: 09/29/22 19:36 Freq: Status: Active Protocol: Document 11/27/22 14:04 LRN (Rec: 11/27/22 15:48 LRN [id number]) Out-Patient Physical Therapy Visit Information Visit Information Visit Type Progress Note Visit Start Time 14:04 Visit Stop Time 14:52 Total Visit Minutes 48 Visit Number 10 Evaluation Information Evaluation Date 10/02/22 Precautions Precautions Heart ablation 01/2022, arthritis, dizziness with falls x 2 last year, back and neck pain worse after falls hitting his head. PT-OP-B Current Condition Start: 09/29/22 19:36 Freq: Status: Active Protocol: Document 10/02/22 11:22 LRN (Rec: 10/02/22 12:35 LRN [id number]) Current Condition History of Current Condition Onset Date 2 yrs ago. Current Complaints Gait and mobility and dizziness w/gait/mobility. History of Current Condition States he has dizziness problems and is seeking PT because he got a new health care provider who has referred him to physical therapy. Pt reports falling a couple time, once last summer and most recently in April. Pt was by himself and falls occured due to same situation, sitting on chair and pushing himself away from a table. The chair legs caught on carpet, causing him and the chair to fall backwards, hitting his head on hardwood floor. Pt also c/o pain in both hips that is progressively worsening. The pain is of same intensity. Pain when on his feet outside his home, after ~25 minutes (like at [employer]). Another complaint is that he wakes in the morning and lays on his back looking at his phone. When he sits up he feels dizzy. In the middle of the night gets up w/o dizziness because he is laying on his side. 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 Treatment Goals Patient/Caregiver Goals Pt goal is to increase LE strength and posture for walking with less pain >25'. Pt agreeable to LE strengthening, balance and gait training, and being placed on a HEP. Personal Factors Other Personal Factors That May Effect Arthritis, back and neck pain, Therapy/Recovery dizziness and falls leading to bkwd falls hitting his head . PT-OP-C Subjective Start: 09/29/22 19:36 Freq: Status: Active Protocol: Document 11/27/22 14:04 LRN (Rec: 11/27/22 15:48 LRN [id number]) OP-PT Subjective Patient Comments Patient Comments Had a bad bout of imbalance ~ 11 days ago and couldn't walk down his stairs, hasn't happened to him before. Requests if he can try to catch a ball. Last fall was 6 weeks ago. Patient Questionnaires ABC- Activity Specific Balance Confidence Scale ABC Score 58 ABC Functional Impairment 40 to <60% Impaired (Score 41- 60) PT-OP-D Balance Start: 09/29/22 19:36 Freq: Status: Active Protocol: Document 10/02/22 11:22 LRN (Rec: 10/02/22 14:07 LRN [id number]) Balance Tests Single Limb Standing Single Limb- Right 0 Single Limb- Left 0 Semi-Tandem Standing Semi-Tandem Standing Balance 0 Pt not able to obtain position w/o LOB. PT-OP-E Functional Tests Start: 09/29/22 19:36 Freq: Status: Active Protocol: Document 11/27/22 14:04 LRN (Rec: 11/27/22 15:48 LRN [id number]) Functional Tests Dynamic Gait Index (DGI) Score 19 DGI Impairment Rating 20 to <40% Impaired (Score 15- 19) PT-OP-G Mobility & Gait Start: 09/29/22 19:36 Freq: Status: Active Protocol: Document 10/02/22 11:22 LRN (Rec: 10/02/22 12:35 LRN [id number]) OP Mobility Evaluation Bed Mobility Rolling Independent but slow. Supine to and from Sit Independent. No c/o dizziness with short stay on his back. Transfers Sit to Stand Independent with use of UE's OP Gait Assessment Gait Gait Assistance Required: Independent Assistive Devices Assistive Device None Gait Deviations General Gait Pattern Decreased Stride Length, Decreased Feet Clearance, Flexed Trunk,Narrow Based Gait Factors Limiting Gait Function Factors Limiting Gait Function Decreased Strength,Limited Range of Motion,Poor Balance PT-OP-H Neuro Start: 09/29/22 19:36 Freq: Status: Active Protocol: Document 10/09/22 11:19 LRN (Rec: 10/09/22 12:15 LRN [id number]) Vital Signs Pulse Standing after sitting Pulse at Rest (bpm) 105 Pulse Assessment Method Auto cuff Sitting after supine Pulse at Rest (bpm) 99 Pulse Assessment Method Auto cuff Supine at start Pulse at Rest (bpm) 94 Pulse Assessment Method Auto cuff Blood Pressure Standing after sitting Blood Pressure (90/60-120/80 mmHg) 131/82 H Blood Pressure Source Automatic Cuff Sitting after supine Blood Pressure (90/60-120/80 mmHg) 137/84 H Blood Pressure Source Automatic Cuff Supine at start Blood Pressure (90/60-120/80 mmHg) 145/86 H Blood Pressure Source Automatic Cuff Comments Vital Signs Comments No dizziness on sitting after supine for 15' PT-OP-J Posture/Palpation/Skin Start: 09/29/22 19:36 Freq: Status: Active Protocol: Document 10/02/22 11:22 LRN (Rec: 10/02/22 12:35 LRN [id number]) Posture Evaluation Position Standing Head/C-Spine Posture Forward Head Shoulder Posture (L) Elevated Arm Posture (L) Internally Rotated,(R) Internally Rotated Weight Distribution Balanced Knee Posture (L) Genu Varus,(R) Genu Varus Ankle/Foot Posture (L) Calcaneal Inversion,(R) Calcaneal Inversion Foot Arch (L) Low Arch,(R) Low Arch Comments Posture Comments R shoulder noticeably low. 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 PT-OP-K Range of Motion Start: 09/29/22 19:36 Freq: Status: Active Protocol: Document 10/12/22 13:01 LRN (Rec: 10/12/22 13:49 LRN [id number]) Hip Goniometric Range of Motion Hip Right Active Hip ROM WFL No Testing Position Supine Flexion w/Knee Flexed 130 Straight Leg Raise 55 Internal Rotation 50 External Rotation 50 Left Active Hip ROM WFL No Testing Position Supine Flexion w/Knee Flexed 130 Straight Leg Raise 45 Internal Rotation 20 External Rotation 70 PT-OP-M Strength Start: 09/29/22 19:36 Freq: Status: Active Protocol: Document 10/12/22 13:01 LRN (Rec: 10/12/22 13:49 LRN [id number]) Hip Strength Hip Manual Muscle Testing Right Flexion (L2) 2+ Poor+ Extension (S1) 2- Poor- Abduction 5 Normal Adduction 2 Poor Comments Pt lacks hip Ext Left Flexion (L2) 2+ Poor+ Extension (S1) 2- Poor- Abduction 2+ Poor+ Adduction 3 Fair Comments Pt lacks hip Ext PT-OP-Q Treatments Start: 09/29/22 19:36 Freq: Status: Active Protocol: Document 11/27/22 14:04 LRN (Rec: 11/27/22 15:48 LRN [id number]) Cardio Equipment Recumbent Stepper (Sci-Fit) Duration (Minutes) 13 Resistance 3 ADIS Scale 10-11: Fairly light Seat Position 16 Gait Training Gait Activity Gait and pivot turns Description Gait and pivot turns Device Used none Level of Assistance SBA Surface level Distance/Duration 5' x 2 Treatment Focus Stability/safety with turning Fast/slow walking Description Alternating between fast/slow walking. Device Used None Level of Assistance SBA Surface Level Distance/Duration 20' x 4 Treatment Focus Stability/safety with gait Lee stepping Description Stepping over hurdles Device Used Hurdles Level of Assistance SBA Distance/Duration 20' x 8 Treatment Focus Balance stepping over hurdles Comments Pt required sit rest after exercise. Stair alternate stepping Description Alternating feet onto steps w/ o UE support Device Used None, railing present Level of Assistance CGA Distance/Duration 8 step taps x 2 after several practice attempts Treatment Focus Ability to SLS when shifting weight. Comments Pt had 1 LOB episode and required railing to prevent falling. Neuro Re-Education Treatment Balance Activities Walking w/head turns Details Walking head turns up/down & side to side Surface Level Reps/Duration 20' x 4 each PT-OP-T Assessment and Plan Start: 09/29/22 19:36 Freq: Status: Active Protocol: Document 11/27/22 14:04 LRN (Rec: 11/27/22 15:48 LRN [id number]) Physical Therapy Assessment Rehab Potential Rehabilitation Potential Good Evaluation Complexity Number of Personal Factors/Comorbidities 1-2 Number of Body Systems Impaired 4 or More Clinical Presentation at Evaluation Evolving Impairments Impairments Activity Tolerance,Balance, Gait,Posture,ROM,Soft Tissue Mobility,Strength,Vestibular Other Concerns Barriers to Rehabilitation Occasional episodes of dizziness. Goals Four Impairment Dizziness supine to sit in mornings. Impairment Dizziness in mornings after lying supine for extended period of time. Cement Patcher Goal (LTG) Pt will not have dizziness with bed mobility and transfers. 10/09/22: Pt no having dizziness with transfer sup<> sit<>stand. 11/03/22: No dizziness with bed mobility or transfers. 11/19/22: has episode of dizziness last Tues for 3 days and unable walk around and now balance worsened. 11/27/22: Reported balance has recovered to what it was before, no dizziness with bed mobility or transfers. LTG Duration 01/01/23 (11/27/22: MET GOAL) Three Impairment Gait Impairment Gait with decreased stride length (R>L), decreased feet clearance, flexed at hips, narrow MARILYNN. DGI score 18 (20<40% impaired, score 15-19) Hip strength: Flex 2+/5 nickie, ext 2-/5 nickie, AB 5/5 R, 2+/5 L , AD 2/5 R, 3/5 L. Hip AROM: Hip Ext - lacks ~10 deg's to neutral. Short Term Goal (STG) Improve hip strength and mobility and improve DGI score >19. 11/19/22: regressed by 2 pts: DGI 16/24 20-40% impaired. 11/27/22: DGI 19/24 (20<40% impaired, score 15-19). STG Duration 12/18/22 progressing 11/27/22 Snf Goal (LTG) Pt will be able to improve posture and LE strength for walking and will report less pain after 25 minutes of walking for shopping ([employer]). 11/19/22: partial met: walked around [facility] for 30 min with cart support. 11/27/22: Reported balance has recovered to what it was before and has returned to prior baseline. Still has hip pain, but not in the amount of time at [employer], 25 minutes). LTG Duration 01/01/23 (11/27/22: MET GOAL) Two Impairment Balance Impairment Ankle AROM: DF is 0 deg's nickie , IV is 0 deg's R, 10 deg's L, EV is 0 deg's R, 5 deg's L. Short Term Goal (STG) Improve ankle mobility (DF, IV , EV). STG Duration 12/18/22 Snf Goal (LTG) Pt confidence will improve per ABC score with greater use of ankle stratedgy for standing balance. 11/27/22: ABC score is 58 ( initial ABC score 56, 40<60% impaired, score 41-60). LTG Duration 01/08/23 progressed 11/27/22 One Impairment HEP Short Term Goal (STG) Pt will be educated in proper standing/sitting posture. 11/19/22: initiated but needs continued ed posturing seated/ standing added wall posture for HEP carryover effort feedback. STG Duration 12/11/22 initiated 11/19/22 Snf Goal (LTG) Pt will be independent in a self care HEP of balance, hip/ ankle mobility and strengthening ex's, and knee strengthening. Pt will initiate an home walking program. 11/05/22: added standing hip abd, ext facing rail. 11/19/22: added resistance hip abd/ext, stagger stance corner balance, fwd sways away from wall encourage COG more fwd during gait. LTG Duration 01/08/23 progressing Progress Towards Goals Progress Comments Pt has returned to prior level before recent flare-up of dizziness with return to meeting of goals #4 & LTG #3. His function has made small improvements in function, as expected per ABC score 58 (was 56, 40<60% impaired, score 41 -60), and DGI score for gait safety is 19 (was 16, 20<40% impaired, score 15-19). Assessment Summary Assessment Pt has shown slow but steady improvement in endurance and function with a decrease in dizziness after vestibular treatment. The pt had a recent flare up of dizziness symptoms that today he appears to have recovered from and has been able to meet goals #4 & LTG #3. The pt would benefit from continuing physical therapy to work towards above goals not yet met. Physical Therapy Plan Frequency and Duration Frequency of Treatment 2x/Week Plan of Care Start Date 11/27/22 Plan of Care End Date 01/08/23 Therapeutic Interventions Therapeutic Interventions Balance Training,Gait Training ,Home Exercise Program,Joint Mobilizations,Manual Therapy, Neuromuscular Re-education, Patient/Caregiver Education, Self-Care/Home Management, Therapeutic Activities, Therapeutic Exercises, Vestibular Rehabilitation Modalities Cold Pack/Ice Massage,Hot Packs Next Visit Focus/Plan Next Note Type Treatment Note Next Visit Plan Next: Assess ankle AROM (DF, IV, EV), STG #2, and review proper standing/sitting posture, STG #1. Review balance HEP, wall fwd leans. Vestibular ex's (walking/ balance with head movement). Review HEP standing: hip abd, ext. Add lee stepping, step taps progress step ups for ability enter brother's home no HR. Initiate ex/HEP: Ankle ROM and strengthening, progress 3 way hip strengthening, Aerobic ex for hips: under ADIS Perceived Exertion Scale for ex between very light and fairly light (101-110).
--- NOTE | 2022-11-27 15:52 | PT.OPPOC ---
Physical, Occupational & Speech Therapy At [facility] Current Diagnoses Other abnormalities of gait and mobility (11/27/22) Visit Care Team Role Provider Type Reynaldo Carter DO Attending Provider Physician Family Provider Primary Care Provider Referring Provider Specialty: Family Practice Address: [address] [place] [address], [facility] Email: [email or web address] PT-OP-T Assessment and Plan Start: 09/29/22 19:36 Freq: Status: Active Protocol: Document 11/27/22 14:04 LRN (Rec: 11/27/22 15:48 LRN [id number]) Physical Therapy Assessment Rehab Potential Rehabilitation Potential Good Evaluation Complexity Number of Personal Factors/Comorbidities 1-2 Number of Body Systems Impaired 4 or More Clinical Presentation at Evaluation Evolving Impairments Impairments Activity Tolerance,Balance, Gait,Posture,ROM,Soft Tissue Mobility,Strength,Vestibular Other Concerns Barriers to Rehabilitation Occasional episodes of dizziness. Goals Four Impairment Dizziness supine to sit in mornings. Impairment Dizziness in mornings after lying supine for extended period of time. Manager Location Goal (LTG) Pt will not have dizziness with bed mobility and transfers. 10/09/22: Pt no having dizziness with transfer sup<> sit<>stand. 11/03/22: No dizziness with bed mobility or transfers. 11/19/22: has episode of dizziness last Tues for 3 days and unable walk around and now balance worsened. 11/27/22: Reported balance has recovered to what it was before, no dizziness with bed mobility or transfers. LTG Duration 01/01/23 (11/27/22: MET GOAL) Three Impairment Gait Impairment Gait with decreased stride length (R>L), decreased feet clearance, flexed at hips, narrow MARILYNN. DGI score 18 (20<40% impaired, score 15-19) Hip strength: Flex 2+/5 nickie, ext 2-/5 nickie, AB 5/5 R, 2+/5 L , AD 2/5 R, 3/5 L. Hip AROM: Hip Ext - lacks ~10 deg's to neutral. Short Term Goal (STG) Improve hip strength and mobility and improve DGI score >19. 11/19/22: regressed by 2 pts: DGI 20-40% impaired. 11/27/22: DGI (20<40% impaired, score 15-19). STG Duration 12/18/22 progressing 11/27/22 Manager Location Goal (LTG) Pt will be able to improve posture and LE strength for walking and will report less pain after 25 minutes of walking for shopping ([employer]). 11/19/22: partial met: [facility]. 11/27/22: Reported balance has recovered to what it was before and has returned to prior baseline. Still has hip pain, but not in the amount of time at [facility], 25 minutes). LTG Duration 01/01/23 (11/27/22: MET GOAL) Two Impairment Balance Impairment Ankle AROM: DF is 0 deg's nickie , IV is 0 deg's R, 10 deg's L, EV is 0 deg's R, 5 deg's L. Short Term Goal (STG) Improve ankle mobility (DF, IV , EV). STG Duration 12/18/22 Manager Location Goal (LTG) Pt confidence will improve per ABC score with greater use of ankle stratedgy for standing balance. 11/27/22: ABC score is 58 ( initial ABC score 56, 40<60% impaired, score 41-60). LTG Duration 01/08/23 progressed 11/27/22 One Impairment HEP Short Term Goal (STG) Pt will be educated in proper standing/sitting posture. 11/19/22: initiated but needs continued ed posturing seated/ standing added wall posture for HEP carryover effort feedback. STG Duration 12/11/22 initiated 11/19/22 Manager Location Goal (LTG) Pt will be independent in a self care HEP of balance, hip/ ankle mobility and strengthening ex's, and knee strengthening. Pt will initiate an home walking program. 11/05/22: added standing hip abd, ext facing rail. 11/19/22: added resistance hip abd/ext, stagger stance corner balance, fwd sways away from wall encourage COG more fwd during gait. LTG Duration 01/08/23 progressing Progress Towards Goals Progress Comments Pt has returned to prior level before recent flare-up of dizziness with return to meeting of goals #4 & LTG #3. His function has made small improvements in function, as expected per ABC score 58 (was 56, 40<60% impaired, score 41 -60), and DGI score for gait safety is 19 (was 16, 20<40% impaired, score 15-19). Assessment Summary Assessment Pt has shown slow but steady improvement in endurance and function with a decrease in dizziness after vestibular treatment. The pt had a recent flare up of dizziness symptoms that today he appears to have recovered from and has been able to meet goals #4 & LTG #3. The pt would benefit from continuing physical therapy to work towards above goals not yet met. Physical Therapy Plan Frequency and Duration Frequency of Treatment 2x/Week Plan of Care Start Date 11/27/22 Plan of Care End Date 01/08/23 Therapeutic Interventions Therapeutic Interventions Balance Training,Gait Training ,Home Exercise Program,Joint Mobilizations,Manual Therapy, Neuromuscular Re-education, Patient/Caregiver Education, Self-Care/Home Management, Therapeutic Activities, Therapeutic Exercises, Vestibular Rehabilitation Modalities Cold Pack/Ice Massage,Hot Packs Next Visit Focus/Plan Next Note Type Treatment Note Next Visit Plan Next: Assess ankle AROM (DF, IV, EV), STG #2, and review proper standing/sitting posture, STG #1. Review balance HEP, wall fwd leans. Vestibular ex's (walking/ balance with head movement). Review HEP standing: hip abd, ext. Add lee stepping, step taps progress step ups for ability enter brother's home no HR. Initiate ex/HEP: Ankle ROM and strengthening, progress 3 way hip strengthening, Aerobic ex for hips: under ADIS Perceived Exertion Scale for ex between very light and fairly light (101-110). Plan of Care Dates Plan of Care Start Date 11/27/22 Plan of Care End Date 01/08/23 Electronically Signed by: Marleny Aguilar, PT 11/27/22 [id number] If you are in agreement with this Plan of Care, please return a signed and dated copy. I have reviewed this Plan of Care and certify that the skilled therapy services above are required to meet the patient?s needs. Physician Signature Date Printed Name and Credentials Clinical Instructor Signature Printed Name and Credentials
--- NOTE | 2022-12-03 14:46 | PT.OTN ---
Current Diagnoses Other abnormalities of gait and mobility (12/03/22) Physical Therapy Treatment Note PT-OP-A Visit Information Start: 09/29/22 19:36 Freq: Status: Active Protocol: Document 12/03/22 14:05 LRN (Rec: 12/03/22 14:46 LRN [id number]) Out-Patient Physical Therapy Visit Information Visit Information Visit Type Treatment Note Visit Start Time 14:05 Visit Stop Time 14:43 Total Visit Minutes 38 Visit Number 11 PT-OP-B Current Condition Start: 09/29/22 19:36 Freq: Status: Active Protocol: Document 10/02/22 11:22 LRN (Rec: 10/02/22 12:35 LRN [id number]) Current Condition History of Current Condition Onset Date 2 yrs ago. Current Complaints Gait and mobility and dizziness w/gait/mobility. History of Current Condition States he has dizziness problems and is seeking PT because he got a new health care provider who has referred him to physical therapy. Pt reports falling a couple time, once last summer and most recently in April. Pt was by himself and falls occured due to same situation, sitting on chair and pushing himself away from a table. The chair legs caught on carpet, causing him and the chair to fall backwards, hitting his head on hardwood floor. Pt also c/o pain in both hips that is progressively worsening. The pain is of same intensity. Pain when on his feet outside his home, after ~25 minutes (like at [employer]). Another complaint is that he wakes in the morning and lays on his back looking at his phone. When he sits up he feels dizzy. In the middle of the night gets up w/o dizziness because he is laying on his side. 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 Treatment Goals Patient/Caregiver Goals Pt goal is to increase LE strength and posture for walking with less pain >25'. Pt agreeable to LE strengthening, balance and gait training, and being placed on a HEP. Personal Factors Other Personal Factors That May Effect Arthritis, back and neck pain, Therapy/Recovery dizziness and falls leading to bkwd falls hitting his head . PT-OP-C Subjective Start: 09/29/22 19:36 Freq: Status: Active Protocol: Document 12/03/22 14:05 LRN (Rec: 12/03/22 14:46 LRN [id number]) OP-PT Subjective Patient Comments Patient Comments Has doubled his walk distance since he started, walking ~24 blocks. No more dizziness, has been good. PT-OP-D Balance Start: 09/29/22 19:36 Freq: Status: Active Protocol: Document 10/02/22 11:22 LRN (Rec: 10/02/22 14:07 LRN [id number]) Balance Tests Single Limb Standing Single Limb- Right 0 Single Limb- Left 0 Semi-Tandem Standing Semi-Tandem Standing Balance 0 Pt not able to obtain position w/o LOB. PT-OP-E Functional Tests Start: 09/29/22 19:36 Freq: Status: Active Protocol: Document 11/27/22 14:04 LRN (Rec: 11/27/22 15:48 LRN [id number]) Functional Tests Dynamic Gait Index (DGI) Score 19 DGI Impairment Rating 20 to <40% Impaired (Score 15- 19) PT-OP-G Mobility & Gait Start: 09/29/22 19:36 Freq: Status: Active Protocol: Document 10/02/22 11:22 LRN (Rec: 10/02/22 12:35 LRN [id number]) OP Mobility Evaluation Bed Mobility Rolling Independent but slow. Supine to and from Sit Independent. No c/o dizziness with short stay on his back. Transfers Sit to Stand Independent with use of UE's OP Gait Assessment Gait Gait Assistance Required: Independent Assistive Devices Assistive Device None Gait Deviations General Gait Pattern Decreased Stride Length, Decreased Feet Clearance, Flexed Trunk,Narrow Based Gait Factors Limiting Gait Function Factors Limiting Gait Function Decreased Strength,Limited Range of Motion,Poor Balance PT-OP-H Neuro Start: 09/29/22 19:36 Freq: Status: Active Protocol: Document 10/09/22 11:19 LRN (Rec: 10/09/22 12:15 LRN [id number]) Vital Signs Pulse Standing after sitting Pulse at Rest (bpm) 105 Pulse Assessment Method Auto cuff Sitting after supine Pulse at Rest (bpm) 99 Pulse Assessment Method Auto cuff Supine at start Pulse at Rest (bpm) 94 Pulse Assessment Method Auto cuff Blood Pressure Standing after sitting Blood Pressure (90/60-120/80 mmHg) 131/82 H Blood Pressure Source Automatic Cuff Sitting after supine Blood Pressure (90/60-120/80 mmHg) 137/84 H Blood Pressure Source Automatic Cuff Supine at start Blood Pressure (90/60-120/80 mmHg) 145/86 H Blood Pressure Source Automatic Cuff Comments Vital Signs Comments No dizziness on sitting after supine for 15' PT-OP-J Posture/Palpation/Skin Start: 09/29/22 19:36 Freq: Status: Active Protocol: Document 10/02/22 11:22 LRN (Rec: 10/02/22 12:35 LRN [id number]) Posture Evaluation Position Standing Head/C-Spine Posture Forward Head Shoulder Posture (L) Elevated Arm Posture (L) Internally Rotated,(R) Internally Rotated Weight Distribution Balanced Knee Posture (L) Genu Varus,(R) Genu Varus Ankle/Foot Posture (L) Calcaneal Inversion,(R) Calcaneal Inversion Foot Arch (L) Low Arch,(R) Low Arch Comments Posture Comments R shoulder noticeably low. 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 PT-OP-K Range of Motion Start: 09/29/22 19:36 Freq: Status: Active Protocol: Document 10/12/22 13:01 LRN (Rec: 10/12/22 13:49 LRN [id number]) Hip Goniometric Range of Motion Hip Right Active Hip ROM WFL No Testing Position Supine Flexion w/Knee Flexed 130 Straight Leg Raise 55 Internal Rotation 50 External Rotation 50 Left Active Hip ROM WFL No Testing Position Supine Flexion w/Knee Flexed 130 Straight Leg Raise 45 Internal Rotation 20 External Rotation 70 PT-OP-M Strength Start: 09/29/22 19:36 Freq: Status: Active Protocol: Document 10/12/22 13:01 LRN (Rec: 10/12/22 13:49 LRN [id number]) Hip Strength Hip Manual Muscle Testing Right Flexion (L2) 2+ Poor+ Extension (S1) 2- Poor- Abduction 5 Normal Adduction 2 Poor Comments Pt lacks hip Ext Left Flexion (L2) 2+ Poor+ Extension (S1) 2- Poor- Abduction 2+ Poor+ Adduction 3 Fair Comments Pt lacks hip Ext PT-OP-Q Treatments Start: 09/29/22 19:36 Freq: Status: Active Protocol: Document 12/03/22 14:05 LRN (Rec: 12/03/22 14:46 LRN [id number]) Cardio Equipment Recumbent Stepper (Sci-Fit) Duration (Minutes) 10 Resistance 3 ADIS Scale 10-11: Fairly light Seat Position 16 Other LEs only, 0.93 miles, 43 RPMs Therapeutic Exercises Supine Exercises Ankle AROM Supine Exercise Name Ankle DF, EV, IV Side bilateral Reps/Minutes x 2 each Comments ROM taken Standing Exercises Gastroc stretch Standing Exercise Name Runner's stretch Side bilateral Reps/Minutes 60 SH x 1 Comments Extra time taken to deter max helen stretch Step ups/downs Standing Exercise Name 6 step Side bilateral Reps/Minutes 10 L, 6 R, rest, 4 R. PT-OP-T Assessment and Plan Start: 09/29/22 19:36 Freq: Status: Active Protocol: Document 12/03/22 14:05 LRN (Rec: 12/03/22 14:46 LRN [id number]) Physical Therapy Assessment Goals Four Impairment Dizziness supine to sit in mornings. Impairment Dizziness in mornings after lying supine for extended period of time. Audiology Doctor Goal (LTG) Pt will not have dizziness with bed mobility and transfers. 10/09/22: Pt no having dizziness with transfer sup<> sit<>stand. 11/03/22: No dizziness with bed mobility or transfers. 11/19/22: has episode of dizziness last Tues for 3 days and unable walk around and now balance worsened. 11/27/22: Reported balance has recovered to what it was before, no dizziness with bed mobility or transfers. LTG Duration 01/01/23 (11/27/22: MET GOAL) Three Impairment Gait Impairment Gait with decreased stride length (R>L), decreased feet clearance, flexed at hips, narrow MARILYNN. DGI score 18 (20<40% impaired, score 15-19) Hip strength: Flex 2+/5 nickie, ext 2-/5 nickie, AB 5/5 R, 2+/5 L , AD 2/5 R, 3/5 L. Hip AROM: Hip Ext - lacks ~10 deg's to neutral. Short Term Goal (STG) Improve hip strength and mobility and improve DGI score >19. 11/19/22: regressed by 2 pts: DGI 20-40% impaired. 11/27/22: DGI (20<40% impaired, score 15-19). STG Duration 12/18/22 progressing 11/27/22 Care Home Goal (LTG) Pt will be able to improve posture and LE strength for walking and will report less pain after 25 minutes of walking for shopping ([employer]). 11/19/22: partial met: walked around [facility] for 30 min with cart support. 11/27/22: Reported balance has recovered to what it was before and has returned to prior baseline. Still has hip pain, but not in the amount of time at [facility], 25 minutes). LTG Duration 01/01/23 (11/27/22: MET GOAL) Two Impairment Balance Impairment Ankle AROM: DF is 0 deg's nickie , IV is 0 deg's R, 10 deg's L, EV is 0 deg's R, 5 deg's L. Short Term Goal (STG) Improve ankle mobility (DF, IV , EV). 12/03/22: Ankle AROM: DF is 3 deg's nickie, IV is 40 deg's R, 20 deg's L, EV is 30 deg's R, 38 deg's L. STG Duration 12/18/22 (12/03/22: MET GOAL) Care Home Goal (LTG) Pt confidence will improve per ABC score with greater use of ankle stratedgy for standing balance. 11/27/22: ABC score is 58 ( initial ABC score 56, 40<60% impaired, score 41-60). LTG Duration 01/08/23 progressed 11/27/22 One Impairment HEP Short Term Goal (STG) Pt will be educated in proper standing/sitting posture. 11/19/22: initiated but needs continued ed posturing seated/ standing added wall posture for HEP carryover effort feedback. STG Duration 12/11/22 initiated 11/19/22 Audiology Doctor Goal (LTG) Pt will be independent in a self care HEP of balance, hip/ ankle mobility and strengthening ex's, and knee strengthening. Pt will initiate an home walking program. 11/05/22: added standing hip abd, ext facing rail. 11/19/22: added resistance hip abd/ext, stagger stance corner balance, fwd sways away from wall encourage COG more fwd during gait. LTG Duration 01/08/23 progressing Progress Towards Goals Progress Comments Ankle mobility improved significantly with IV/EV. Ankle DF improved from 0 to 3 deg's bilaterally. Assessment Summary Assessment Pt much improved in his ankle mobility. The R ankle has greater mobility with IV, L ankle with EV, DF is same at 3 deg's. Physical Therapy Plan Frequency and Duration Frequency of Treatment 2x/Week Plan of Care Start Date 11/27/22 Plan of Care End Date 01/08/23 Next Visit Focus/Plan Next Note Type Treatment Note Next Visit Plan Next: Cont ankle DF stretching f/b active DF. Review proper standing/sitting posture, STG #1. Review balance HEP, wall fwd leans. Vestibular ex's (walking/ balance with head movement). Review HEP standing: hip abd, ext. Add lee stepping, step taps progress step ups for ability enter brother's home no HR. Initiate ex/HEP: Ankle ROM and strengthening, progress 3 way hip strengthening, Aerobic ex for hips: under ADIS Perceived Exertion Scale for ex between very light and fairly light (101-110).
--- NOTE | 2022-12-08 16:47 | PT-OP ANOTE ---
Pt notified of missed appt and reminded of his next appt 12/10/22 at 12:45.
--- NOTE | 2022-12-10 13:35 | PT.OTN ---
Current Diagnoses Other abnormalities of gait and mobility (12/10/22) Physical Therapy Treatment Note PT-OP-A Visit Information Start: 09/29/22 19:36 Freq: Status: Active Protocol: Document 12/10/22 12:51 SP (Rec: 12/10/22 13:48 SP [id number]) Out-Patient Physical Therapy Visit Information Visit Information Visit Type Treatment Note Visit Note Vitals arrival L automated: supine shuttle recovery: BP 146/ 93 HR 97 95% on RA seated: BP 130/81 HR 91- 103bpm standing: BP 105/71 HR 108- 113 2min standin/83 HR 114 Nonsymptomatic. Visit Start Time 12:51 Visit Stop Time 13:35 Total Visit Minutes 44 Visit Number 12 Number of MANGLE OPERATOR GARMENTS Visits 1 Evaluation Information Evaluation Date 10/02/22 Precautions Precautions Heart ablation 01/2022, arthritis, dizziness with falls x 2 last year, back and neck pain worse after falls hitting his head. PT-OP-B Current Condition Start: 09/29/22 19:36 Freq: Status: Active Protocol: Document 10/02/22 11:22 LRN (Rec: 10/02/22 12:35 LRN [id number]) Current Condition History of Current Condition Onset Date 2 yrs ago. Current Complaints Gait and mobility and dizziness w/gait/mobility. History of Current Condition States he has dizziness problems and is seeking PT because he got a new health care provider who has referred him to physical therapy. Pt reports falling a couple time, once last summer and most recently in April. Pt was by himself and falls occured due to same situation, sitting on chair and pushing himself away from a table. The chair legs caught on carpet, causing him and the chair to fall backwards, hitting his head on hardwood floor. Pt also c/o pain in both hips that is progressively worsening. The pain is of same intensity. Pain when on his feet outside his home, after ~25 minutes (like at [employer]). Another complaint is that he wakes in the morning and lays on his back looking at his phone. When he sits up he feels dizzy. In the middle of the night gets up w/o dizziness because he is laying on his side. 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 Treatment Goals Patient/Caregiver Goals Pt goal is to increase LE strength and posture for walking with less pain >25'. Pt agreeable to LE strengthening, balance and gait training, and being placed on a HEP. Personal Factors Other Personal Factors That May Effect Arthritis, back and neck pain, Therapy/Recovery dizziness and falls leading to bkwd falls hitting his head . PT-OP-C Subjective Start: 09/29/22 19:36 Freq: Status: Active Protocol: Document 12/10/22 12:51 SP (Rec: 12/10/22 13:48 SP [id number]) OP-PT Subjective Patient Comments Patient Comments Pt trandelenburg side trunk wt shift gait back to gym. He reports had 2 instances of disorientation where feels 30 ft tall and looking down ground notable disaster recovery manager depth to manage LE mobility and causes to feel off balance and like going to fall. PT-OP-D Balance Start: 09/29/22 19:36 Freq: Status: Active Protocol: Document 10/02/22 11:22 LRN (Rec: 10/02/22 14:07 LRN [id number]) Balance Tests Single Limb Standing Single Limb- Right 0 Single Limb- Left 0 Semi-Tandem Standing Semi-Tandem Standing Balance 0 Pt not able to obtain position w/o LOB. PT-OP-E Functional Tests Start: 09/29/22 19:36 Freq: Status: Active Protocol: Document 11/27/22 14:04 LRN (Rec: 11/27/22 15:48 LRN [id number]) Functional Tests Dynamic Gait Index (DGI) Score 19 DGI Impairment Rating 20 to <40% Impaired (Score 15- 19) PT-OP-G Mobility & Gait Start: 09/29/22 19:36 Freq: Status: Active Protocol: Document 10/02/22 11:22 LRN (Rec: 10/02/22 12:35 LRN [id number]) OP Mobility Evaluation Bed Mobility Rolling Independent but slow. Supine to and from Sit Independent. No c/o dizziness with short stay on his back. Transfers Sit to Stand Independent with use of UE's OP Gait Assessment Gait Gait Assistance Required: Independent Assistive Devices Assistive Device None Gait Deviations General Gait Pattern Decreased Stride Length, Decreased Feet Clearance, Flexed Trunk,Narrow Based Gait Factors Limiting Gait Function Factors Limiting Gait Function Decreased Strength,Limited Range of Motion,Poor Balance PT-OP-H Neuro Start: 09/29/22 19:36 Freq: Status: Active Protocol: Document 10/09/22 11:19 LRN (Rec: 10/09/22 12:15 LRN [id number]) Vital Signs Pulse Standing after sitting Pulse at Rest (bpm) 105 Pulse Assessment Method Auto cuff Sitting after supine Pulse at Rest (bpm) 99 Pulse Assessment Method Auto cuff Supine at start Pulse at Rest (bpm) 94 Pulse Assessment Method Auto cuff Blood Pressure Standing after sitting Blood Pressure (90/60-120/80 mmHg) 131/82 H Blood Pressure Source Automatic Cuff Sitting after supine Blood Pressure (90/60-120/80 mmHg) 137/84 H Blood Pressure Source Automatic Cuff Supine at start Blood Pressure (90/60-120/80 mmHg) 145/86 H Blood Pressure Source Automatic Cuff Comments Vital Signs Comments No dizziness on sitting after supine for 15' PT-OP-J Posture/Palpation/Skin Start: 09/29/22 19:36 Freq: Status: Active Protocol: Document 10/02/22 11:22 LRN (Rec: 10/02/22 12:35 LRN [id number]) Posture Evaluation Position Standing Head/C-Spine Posture Forward Head Shoulder Posture (L) Elevated Arm Posture (L) Internally Rotated,(R) Internally Rotated Weight Distribution Balanced Knee Posture (L) Genu Varus,(R) Genu Varus Ankle/Foot Posture (L) Calcaneal Inversion,(R) Calcaneal Inversion Foot Arch (L) Low Arch,(R) Low Arch Comments Posture Comments R shoulder noticeably low. 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 PT-OP-K Range of Motion Start: 09/29/22 19:36 Freq: Status: Active Protocol: Document 10/12/22 13:01 LRN (Rec: 10/12/22 13:49 LRN [id number]) Hip Goniometric Range of Motion Hip Right Active Hip ROM WFL No Testing Position Supine Flexion w/Knee Flexed 130 Straight Leg Raise 55 Internal Rotation 50 External Rotation 50 Left Active Hip ROM WFL No Testing Position Supine Flexion w/Knee Flexed 130 Straight Leg Raise 45 Internal Rotation 20 External Rotation 70 PT-OP-M Strength Start: 09/29/22 19:36 Freq: Status: Active Protocol: Document 10/12/22 13:01 LRN (Rec: 10/12/22 13:49 LRN [id number]) Hip Strength Hip Manual Muscle Testing Right Flexion (L2) 2+ Poor+ Extension (S1) 2- Poor- Abduction 5 Normal Adduction 2 Poor Comments Pt lacks hip Ext Left Flexion (L2) 2+ Poor+ Extension (S1) 2- Poor- Abduction 2+ Poor+ Adduction 3 Fair Comments Pt lacks hip Ext PT-OP-Q Treatments Start: 09/29/22 19:36 Freq: Status: Active Protocol: Document 12/10/22 12:51 SP (Rec: 12/10/22 13:48 SP [id number]) Gym Equipment Shuttle Recovery bilateral squat Details cued glut fac improved no knee strain. Resistance 75# (1 new band) Reps/Time x15 Therapeutic Exercises Supine Exercises SLR Supine Exercise Name TA SLR- HEP reviewed Side bilateral Reps/Minutes 15x 2 Comments Cuing for exhale on lift; TA tightening Sidelying Exercises Hip AB Sidelying Exercise Name Hip AB Side bilateral Reps/Minutes x10 Comments Cuing PPT/TA, knee straight, stacked on side (roll more fwd ), lift ceiling. Sitting Exercises sit<>stands Sitting Exercise Name added to HEP Equipment Used 21 no UE support, 20 hip hinge cues more effort, 18 1 UE support 50% Reps/Minutes 10 min total Comments cued scoot fwd, feet back, wt shift over front/full foot, slow descent sit Self-Care/Home Management Treatment Education Patient Education Home Exercise Program,Posture, Safety Other Education Extra time spent ed and vital values taken with noted 40 point decrease sup>standing, but recovers after 2 min standing. Discussed calling PCP for ed on orthostatic with standing and if further testing for safety in community and disorientation lately. Added STS (no HO required). PT-OP-T Assessment and Plan Start: 09/29/22 19:36 Freq: Status: Active Protocol: Document 12/10/22 12:51 SP (Rec: 12/10/22 13:48 SP [id number]) Physical Therapy Assessment Goals Four Impairment Dizziness supine to sit in mornings. Impairment Dizziness in mornings after lying supine for extended period of time. Epic Willow Specialist Goal (LTG) Pt will not have dizziness with bed mobility and transfers. 10/09/22: Pt no having dizziness with transfer sup<> sit<>stand. 11/03/22: No dizziness with bed mobility or transfers. 11/19/22: has episode of dizziness last Tues for 3 days and unable walk around and now balance worsened. 11/27/22: Reported balance has recovered to what it was before, no dizziness with bed mobility or transfers. 12/10/22: 2 instances of disorientation out in community stepping over curb uneven to level pavement and getting out car LTG Duration 01/01/23 degression 12/10/22 Three Impairment Gait Impairment Gait with decreased stride length (R>L), decreased feet clearance, flexed at hips, narrow MARILYNN. DGI score 18 (20<40% impaired, score 15-19) Hip strength: Flex 2+/5 nickie, ext 2-/5 nickie, AB 5/5 R, 2+/5 L , AD 2/5 R, 3/5 L. Hip AROM: Hip Ext - lacks ~10 deg's to neutral. Short Term Goal (STG) Improve hip strength and mobility and improve DGI score >19. 11/19/22: regressed by 2 pts: DGI 16/24 20-40% impaired. 11/27/22: DGI 19/24 (20<40% impaired, score 15-19). STG Duration 12/18/22 progressing 11/27/22 [facility] Goal (LTG) Pt will be able to improve posture and LE strength for walking and will report less pain after 25 minutes of walking for shopping ([employer]). 11/19/22: partial met: walked around [facility] for 30 min with cart support. 11/27/22: Reported balance has recovered to what it was before and has returned to prior baseline. Still has hip pain, but not in the amount of time at [facility], 25 minutes). LTG Duration 01/01/23 (11/27/22: MET GOAL) Two Impairment Balance Impairment Ankle AROM: DF is 0 deg's nickie , IV is 0 deg's R, 10 deg's L, EV is 0 deg's R, 5 deg's L. Short Term Goal (STG) Improve ankle mobility (DF, IV , EV). 12/03/22: Ankle AROM: DF is 3 deg's nickie, IV is 40 deg's R, 20 deg's L, EV is 30 deg's R, 38 deg's L. STG Duration 12/18/22 (12/03/22: MET GOAL) Epic Willow Specialist Goal (LTG) Pt confidence will improve per ABC score with greater use of ankle stratedgy for standing balance. 11/27/22: ABC score is 58 ( initial ABC score 56, 40<60% impaired, score 41-60). LTG Duration 01/08/23 progressed 11/27/22 One Impairment HEP Short Term Goal (STG) Pt will be educated in proper standing/sitting posture. 11/19/22: initiated but needs continued ed posturing seated/ standing added wall posture for HEP carryover effort feedback. STG Duration 12/11/22 initiated 11/19/22 Epic Willow Specialist Goal (LTG) Pt will be independent in a self care HEP of balance, hip/ ankle mobility and strengthening ex's, and knee strengthening. Pt will initiate an home walking program. 11/05/22: added standing hip abd, ext facing rail. 11/19/22: added resistance hip abd/ext, stagger stance corner balance, fwd sways away from wall encourage COG more fwd during gait. 12/10/22: added STS to HEP and reviewed side hip abd AROM. LTG Duration 01/08/23 progressing Assessment Summary Assessment Pt decreased no UE support 20- 21 table chair, less with 1 UE 50% WB assist to come standing 18 height, better understanding mechanics hip hinge come stand and slow descend sit safer. Improved TA SLR and side ABD for lateral stability gait by end to of tx very light lateral pelvis shift during gait, improved hip abd and glut support. Physical Therapy Plan Frequency and Duration Frequency of Treatment 2x/Week Plan of Care Start Date 11/27/22 Plan of Care End Date 01/08/23 Therapeutic Interventions Therapeutic Interventions Balance Training,Gait Training ,Home Exercise Program,Joint Mobilizations,Manual Therapy, Neuromuscular Re-education, Patient/Caregiver Education, Self-Care/Home Management, Therapeutic Activities, Therapeutic Exercises, Vestibular Rehabilitation Modalities Cold Pack/Ice Massage,Hot Packs Next Visit Focus/Plan Next Note Type Treatment Note Next Visit Plan CHeck BP and orthostatic if needed. Review STS, hip abd HEP. Continue step ups if can. Next: Cont ankle DF stretching f/b active DF. Review proper standing/sitting posture, STG #1. Review balance HEP, wall fwd leans. Vestibular ex's (walking/ balance with head movement). Review HEP standing: hip abd, ext. Add lee stepping, step taps progress step ups for ability enter brother's home no HR. Initiate ex/HEP: Ankle ROM and strengthening, progress 3 way hip strengthening, Aerobic ex for hips: under ADIS Perceived Exertion Scale for ex between very light and fairly light (101-110).
--- NOTE | 2022-12-15 12:45 | PT.OTN ---
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 PT-OP-B Current Condition Start: 09/29/22 19:36 Freq: Status: Active Protocol: Document 10/02/22 11:22 LRN (Rec: 10/02/22 12:35 LRN [id number]) Current Condition History of Current Condition Onset Date 2 yrs ago. Current Complaints Gait and mobility and dizziness w/gait/mobility. History of Current Condition States he has dizziness problems and is seeking PT because he got a new health care provider who has referred him to physical therapy. Pt reports falling a couple time, once last summer and most recently in April. Pt was by himself and falls occured due to same situation, sitting on chair and pushing himself away from a table. The chair legs caught on carpet, causing him and the chair to fall backwards, hitting his head on hardwood floor. Pt also c/o pain in both hips that is progressively worsening. The pain is of same intensity. Pain when on his feet outside his home, after ~25 minutes (like at [facility]). Another complaint is that he wakes in the morning and lays on his back looking at his phone. When he sits up he feels dizzy. In the middle of the night gets up w/o dizziness because he is laying on his side. 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 Treatment Goals Patient/Caregiver Goals Pt goal is to increase LE strength and posture for walking with less pain >25'. Pt agreeable to LE strengthening, balance and gait training, and being placed on a HEP. Personal Factors Other Personal Factors That May Effect Arthritis, back and neck pain, Therapy/Recovery dizziness and falls leading to bkwd falls hitting his head . PT-OP-C Subjective Start: 09/29/22 19:36 Freq: Status: Active Protocol: Document 12/15/22 12:01 SP (Rec: 12/15/22 12:48 SP [id number]) OP-PT Subjective Patient Comments Patient Comments Pt arrives IR and slight circumduction of BLEs. He reports was so tired and pretty sore after last tx from the repeated sit to stands, took just recovered by Wednesday. He reports feels a good exercises to help with gaining strength just not so many. PT-OP-D Balance Start: 09/29/22 19:36 Freq: Status: Active Protocol: Document 10/02/22 11:22 LRN (Rec: 10/02/22 14:07 LRN [id number]) Balance Tests Single Limb Standing Single Limb- Right 0 Single Limb- Left 0 Semi-Tandem Standing Semi-Tandem Standing Balance 0 Pt not able to obtain position w/o LOB. PT-OP-E Functional Tests Start: 09/29/22 19:36 Freq: Status: Active Protocol: Document 11/27/22 14:04 LRN (Rec: 11/27/22 15:48 LRN [id number]) Functional Tests Dynamic Gait Index (DGI) Score 19 DGI Impairment Rating 20 to <40% Impaired (Score 15- 19) PT-OP-G Mobility & Gait Start: 09/29/22 19:36 Freq: Status: Active Protocol: Document 10/02/22 11:22 LRN (Rec: 10/02/22 12:35 LRN [id number]) OP Mobility Evaluation Bed Mobility Rolling Independent but slow. Supine to and from Sit Independent. No c/o dizziness with short stay on his back. Transfers Sit to Stand Independent with use of UE's OP Gait Assessment Gait Gait Assistance Required: Independent Assistive Devices Assistive Device None Gait Deviations General Gait Pattern Decreased Stride Length, Decreased Feet Clearance, Flexed Trunk,Narrow Based Gait Factors Limiting Gait Function Factors Limiting Gait Function Decreased Strength,Limited Range of Motion,Poor Balance PT-OP-H Neuro Start: 09/29/22 19:36 Freq: Status: Active Protocol: Document 10/09/22 11:19 LRN (Rec: 10/09/22 12:15 LRN [id number]) Vital Signs Pulse Standing after sitting Pulse at Rest (bpm) 105 Pulse Assessment Method Auto cuff Sitting after supine Pulse at Rest (bpm) 99 Pulse Assessment Method Auto cuff Supine at start Pulse at Rest (bpm) 94 Pulse Assessment Method Auto cuff Blood Pressure Standing after sitting Blood Pressure (90/60-120/80 mmHg) 131/82 H Blood Pressure Source Automatic Cuff Sitting after supine Blood Pressure (90/60-120/80 mmHg) 137/84 H Blood Pressure Source Automatic Cuff Supine at start Blood Pressure (90/60-120/80 mmHg) 145/86 H Blood Pressure Source Automatic Cuff Comments Vital Signs Comments No dizziness on sitting after supine for 15' PT-OP-J Posture/Palpation/Skin Start: 09/29/22 19:36 Freq: Status: Active Protocol: Document 10/02/22 11:22 LRN (Rec: 10/02/22 12:35 LRN [id number]) Posture Evaluation Position Standing Head/C-Spine Posture Forward Head Shoulder Posture (L) Elevated Arm Posture (L) Internally Rotated,(R) Internally Rotated Weight Distribution Balanced Knee Posture (L) Genu Varus,(R) Genu Varus Ankle/Foot Posture (L) Calcaneal Inversion,(R) Calcaneal Inversion Foot Arch (L) Low Arch,(R) Low Arch Comments Posture Comments R shoulder noticeably low. 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 PT-OP-K Range of Motion Start: 09/29/22 19:36 Freq: Status: Active Protocol: Document 10/12/22 13:01 LRN (Rec: 10/12/22 13:49 LRN [id number]) Hip Goniometric Range of Motion Hip Right Active Hip ROM WFL No Testing Position Supine Flexion w/Knee Flexed 130 Straight Leg Raise 55 Internal Rotation 50 External Rotation 50 Left Active Hip ROM WFL No Testing Position Supine Flexion w/Knee Flexed 130 Straight Leg Raise 45 Internal Rotation 20 External Rotation 70 PT-OP-M Strength Start: 09/29/22 19:36 Freq: Status: Active Protocol: Document 10/12/22 13:01 LRN (Rec: 10/12/22 13:49 LRN [id number]) Hip Strength Hip Manual Muscle Testing Right Flexion (L2) 2+ Poor+ Extension (S1) 2- Poor- Abduction 5 Normal Adduction 2 Poor Comments Pt lacks hip Ext Left Flexion (L2) 2+ Poor+ Extension (S1) 2- Poor- Abduction 2+ Poor+ Adduction 3 Fair Comments Pt lacks hip Ext PT-OP-Q Treatments Start: 09/29/22 19:36 Freq: Status: Active Protocol: Document 12/15/22 12:01 SP (Rec: 12/15/22 12:48 SP [id number]) Cardio Equipment Recumbent Stepper (Sci-Fit) Duration (Minutes) 10 Resistance 3.5 ADIS Scale 13 Somewhat hard Seat Position 16- good quad work out burn Other LEs only, 1.29 miles, 47 RPMs Therapeutic Exercises Sitting Exercises sit<>stands Sitting Exercise Name reviewed HEP Equipment Used 20 : mesh chair +blue foam, lig Reps/Minutes 2 reps no UE support, then light 1 UE asc/no UE descend Comments good set up/form Standing Exercises hip abd, ext Standing Exercise Name reviewed HEP Resistance added TB #2 (latex orange) loop adhikari below knees Equipment Used facing rail support Reps/Minutes 2 x10 each- instructed perform 3x/wk to allow recovery day Comments cued tall posturing, core, effort glut/hip abd fac- no LB arch heel raises Standing Exercise Name double leg then single leg Side bilateral Equipment Used no UE BLE, moderate 1 UE support single Reps/Minutes 15x double leg, 10x each single le Comments cued tall posture over MARILYNN, decreased eccentric lower to floor SL Neuro Re-Education Treatment Balance Activities hurdles Details step to receiprocal Equipment 6 hurdles Reps/Duration x3 laps Comments cued B feet more //, decrease L>R circumduction instructed KTC clearance. PT-OP-T Assessment and Plan Start: 09/29/22 19:36 Freq: Status: Active Protocol: Document 12/15/22 12:01 SP (Rec: 12/15/22 12:48 SP [id number]) Physical Therapy Assessment Goals Four Impairment Dizziness supine to sit in mornings. Impairment Dizziness in mornings after lying supine for extended period of time. Air And Water Tester Goal (LTG) Pt will not have dizziness with bed mobility and transfers. 10/09/22: Pt no having dizziness with transfer sup<> sit<>stand. 11/03/22: No dizziness with bed mobility or transfers. 11/19/22: has episode of dizziness last Tues for 3 days and unable walk around and now balance worsened. 11/27/22: Reported balance has recovered to what it was before, no dizziness with bed mobility or transfers. 12/10/22: 2 instances of disorientation out in community stepping over curb uneven to level pavement and getting out car LTG Duration 01/01/23 degression 12/10/22 Three Impairment Gait Impairment Gait with decreased stride length (R>L), decreased feet clearance, flexed at hips, narrow MARILYNN. DGI score 18 (20<40% impaired, score 15-19) Hip strength: Flex 2+/5 nickie, ext 2-/5 nickie, AB 5/5 R, 2+/5 L , AD 2/5 R, 3/5 L. Hip AROM: Hip Ext - lacks ~10 deg's to neutral. Short Term Goal (STG) Improve hip strength and mobility and improve DGI score >19. 11/19/22: regressed by 2 pts: DGI 16/24 20-40% impaired. 11/27/22: DGI 19/24 (20<40% impaired, score 15-19). STG Duration 12/18/22 progressing 11/27/22 Air And Water Tester Goal (LTG) Pt will be able to improve posture and LE strength for walking and will report less pain after 25 minutes of walking for shopping ([facility]). 11/19/22: partial met: walked around [email or web address] for 30 min with cart support. 11/27/22: Reported balance has recovered to what it was before and has returned to prior baseline. Still has hip pain, but not in the amount of time at [facility], 25 minutes). LTG Duration 01/01/23 (11/27/22: MET GOAL) Two Impairment Balance Impairment Ankle AROM: DF is 0 deg's nickie , IV is 0 deg's R, 10 deg's L, EV is 0 deg's R, 5 deg's L. Short Term Goal (STG) Improve ankle mobility (DF, IV , EV). 12/03/22: Ankle AROM: DF is 3 deg's nickie, IV is 40 deg's R, 20 deg's L, EV is 30 deg's R, 38 deg's L. STG Duration 12/18/22 (12/03/22: MET GOAL) Fdc Goal (LTG) Pt confidence will improve per ABC score with greater use of ankle stratedgy for standing balance. 11/27/22: ABC score is 58 ( initial ABC score 56, 40<60% impaired, score 41-60). LTG Duration 01/08/23 progressed 11/27/22 One Impairment HEP Short Term Goal (STG) Pt will be educated in proper standing/sitting posture. 11/19/22: initiated but needs continued ed posturing seated/ standing added wall posture for HEP carryover effort feedback. 12/15/22: cues for standing posture during resisted hip abd. STG Duration 12/11/22 progressing 12/15/22 Air And Water Tester Goal (LTG) Pt will be independent in a self care HEP of balance, hip/ ankle mobility and strengthening ex's, and knee strengthening. Pt will initiate an home walking program. 11/05/22: added standing hip abd, ext facing rail. 11/19/22: added resistance hip abd/ext, stagger stance corner balance, fwd sways away from wall encourage COG more fwd during gait. 12/10/22: added STS to HEP and reviewed side hip abd AROM. 12/15/22: added resistance to hip abd & ext, reviewed continue SLS heel raises LTG Duration 01/08/23 progressing Assessment Summary Assessment Pt required light UE support on 1 side during STS this tx 20 and standing resisted hip abd/ext this tx, reports wasn' t as sore end tx. Pt improved posture with educational cues. Physical Therapy Plan Frequency and Duration Frequency of Treatment 2x/Week Plan of Care Start Date 11/27/22 Plan of Care End Date 01/08/23 Therapeutic Interventions Therapeutic Interventions Balance Training,Gait Training ,Home Exercise Program,Joint Mobilizations,Manual Therapy, Neuromuscular Re-education, Patient/Caregiver Education, Self-Care/Home Management, Therapeutic Activities, Therapeutic Exercises, Vestibular Rehabilitation Modalities Cold Pack/Ice Massage,Hot Packs Next Visit Focus/Plan Next Note Type Treatment Note Next Visit Plan CHeck BP and orthostatic if needed. Add hip ER, continue ABD strengthening. Next tx: recheck goals: DGI, ABC update. POC expires 01/08 and will need see PT to update, appts with PT 12/31, and 01/21 2 with PT between dates. Continue step ups. Review balance HEP, add wall fwd leans. Vestibular ex's (walking/ balance with head movement). Add step taps progress step ups for ability enter brother' s home no HR. Initiate ex/HEP: Ankle ROM and strengthening, progress 3 way hip strengthening, Aerobic ex for hips: under ADIS Perceived Exertion Scale for ex between very light and fairly light (101-110).
--- NOTE | 2022-12-31 11:38 | PT.OTN ---
Current Diagnoses Other abnormalities of gait and mobility (12/31/22) Physical Therapy Treatment Note PT-OP-A Visit Information Start: 09/29/22 19:36 Freq: Status: Active Protocol: Document 12/31/22 10:02 SP (Rec: 12/31/22 11:38 SP [id number]) Out-Patient Physical Therapy Visit Information Visit Information Visit Type Treatment Note Visit Start Time 10:02 Visit Stop Time 10:45 Total Visit Minutes 43 Visit Number 14 Number of EXECUTIVE TALENT ACQUISITION CONSULTANT Visits 3 Evaluation Information Evaluation Date 10/02/22 Precautions Precautions Heart ablation 01/2022, arthritis, dizziness with falls x 2 last year, back and neck pain worse after falls hitting his head. PT-OP-B Current Condition Start: 09/29/22 19:36 Freq: Status: Active Protocol: Document 10/02/22 11:22 LRN (Rec: 10/02/22 12:35 LRN [id number]) Current Condition History of Current Condition Onset Date 2 yrs ago. Current Complaints Gait and mobility and dizziness w/gait/mobility. History of Current Condition States he has dizziness problems and is seeking PT because he got a new health care provider who has referred him to physical therapy. Pt reports falling a couple time, once last summer and most recently in April. Pt was by himself and falls occured due to same situation, sitting on chair and pushing himself away from a table. The chair legs caught on carpet, causing him and the chair to fall backwards, hitting his head on hardwood floor. Pt also c/o pain in both hips that is progressively worsening. The pain is of same intensity. Pain when on his feet outside his home, after ~25 minutes (like at [employer]). Another complaint is that he wakes in the morning and lays on his back looking at his phone. When he sits up he feels dizzy. In the middle of the night gets up w/o dizziness because he is laying on his side. 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 Treatment Goals Patient/Caregiver Goals Pt goal is to increase LE strength and posture for walking with less pain >25'. Pt agreeable to LE strengthening, balance and gait training, and being placed on a HEP. Personal Factors Other Personal Factors That May Effect Arthritis, back and neck pain, Therapy/Recovery dizziness and falls leading to bkwd falls hitting his head . PT-OP-C Subjective Start: 09/29/22 19:36 Freq: Status: Active Protocol: Document 12/31/22 10:02 SP (Rec: 12/31/22 11:38 SP [id number]) OP-PT Subjective Patient Comments Patient Comments Pt reports pain R medial knee (paints distal adductor to knee joint line) pain in past few days, especially come to standing and comes/goes. Pt reports is noticing seeing improvements, getting up/down back steps with use 1 HR better since started PT. Pt states feels not has socks on feet and can't feel completely so thinks plays factor with balance/stepping. Patient Questionnaires ABC- Activity Specific Balance Confidence Scale ABC Score 64 ABC Functional Impairment 20 to <40% Impaired (Score 61- 80) PT-OP-D Balance Start: 09/29/22 19:36 Freq: Status: Active Protocol: Document 10/02/22 11:22 LRN (Rec: 10/02/22 14:07 LRN [id number]) Balance Tests Single Limb Standing Single Limb- Right 0 Single Limb- Left 0 Semi-Tandem Standing Semi-Tandem Standing Balance 0 Pt not able to obtain position w/o LOB. PT-OP-E Functional Tests Start: 09/29/22 19:36 Freq: Status: Active Protocol: Document 12/31/22 10:02 SP (Rec: 12/31/22 11:38 SP [id number]) Functional Tests Dynamic Gait Index (DGI) Score 19 DGI Impairment Rating 20 to <40% Impaired (Score 15- 19) PT-OP-G Mobility & Gait Start: 09/29/22 19:36 Freq: Status: Active Protocol: Document 10/02/22 11:22 LRN (Rec: 10/02/22 12:35 LRN [id number]) OP Mobility Evaluation Bed Mobility Rolling Independent but slow. Supine to and from Sit Independent. No c/o dizziness with short stay on his back. Transfers Sit to Stand Independent with use of UE's OP Gait Assessment Gait Gait Assistance Required: Independent Assistive Devices Assistive Device None Gait Deviations General Gait Pattern Decreased Stride Length, Decreased Feet Clearance, Flexed Trunk,Narrow Based Gait Factors Limiting Gait Function Factors Limiting Gait Function Decreased Strength,Limited Range of Motion,Poor Balance PT-OP-H Neuro Start: 09/29/22 19:36 Freq: Status: Active Protocol: Document 10/09/22 11:19 LRN (Rec: 10/09/22 12:15 LRN [id number]) Vital Signs Pulse Standing after sitting Pulse at Rest (bpm) 105 Pulse Assessment Method Auto cuff Sitting after supine Pulse at Rest (bpm) 99 Pulse Assessment Method Auto cuff Supine at start Pulse at Rest (bpm) 94 Pulse Assessment Method Auto cuff Blood Pressure Standing after sitting Blood Pressure (90/60-120/80 mmHg) 131/82 H Blood Pressure Source Automatic Cuff Sitting after supine Blood Pressure (90/60-120/80 mmHg) 137/84 H Blood Pressure Source Automatic Cuff Supine at start Blood Pressure (90/60-120/80 mmHg) 145/86 H Blood Pressure Source Automatic Cuff Comments Vital Signs Comments No dizziness on sitting after supine for 15' PT-OP-J Posture/Palpation/Skin Start: 09/29/22 19:36 Freq: Status: Active Protocol: Document 10/02/22 11:22 LRN (Rec: 10/02/22 12:35 LRN [id number]) Posture Evaluation Position Standing Head/C-Spine Posture Forward Head Shoulder Posture (L) Elevated Arm Posture (L) Internally Rotated,(R) Internally Rotated Weight Distribution Balanced Knee Posture (L) Genu Varus,(R) Genu Varus Ankle/Foot Posture (L) Calcaneal Inversion,(R) Calcaneal Inversion Foot Arch (L) Low Arch,(R) Low Arch Comments Posture Comments R shoulder noticeably low. 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 PT-OP-K Range of Motion Start: 09/29/22 19:36 Freq: Status: Active Protocol: Document 10/12/22 13:01 LRN (Rec: 10/12/22 13:49 LRN [id number]) Hip Goniometric Range of Motion Hip Right Active Hip ROM WFL No Testing Position Supine Flexion w/Knee Flexed 130 Straight Leg Raise 55 Internal Rotation 50 External Rotation 50 Left Active Hip ROM WFL No Testing Position Supine Flexion w/Knee Flexed 130 Straight Leg Raise 45 Internal Rotation 20 External Rotation 70 PT-OP-M Strength Start: 09/29/22 19:36 Freq: Status: Active Protocol: Document 10/12/22 13:01 LRN (Rec: 10/12/22 13:49 LRN [id number]) Hip Strength Hip Manual Muscle Testing Right Flexion (L2) 2+ Poor+ Extension (S1) 2- Poor- Abduction 5 Normal Adduction 2 Poor Comments Pt lacks hip Ext Left Flexion (L2) 2+ Poor+ Extension (S1) 2- Poor- Abduction 2+ Poor+ Adduction 3 Fair Comments Pt lacks hip Ext PT-OP-Q Treatments Start: 09/29/22 19:36 Freq: Status: Active Protocol: Document 12/31/22 10:02 SP (Rec: 12/31/22 11:38 SP [id number]) Neuro Re-Education Treatment Balance Activities step taps Details in PT Surface 5# leg wt, 8 step Equipment hand hover rail Reps/Duration 2x10 alternating BLE Comments Cued erect posture w/ core/ scap complex engagement, improved pacing control and landing asc/desc DGI Details 12/31/22 Comments , 20-40% impaired corner balance Details NBOS, Stagger, resisted marching Equipment back wall, hands hover back chair positioned in front Reps/Duration 8 Comments 1. head turns both positions 2. EC (WBOS, NBOS only) 3. resisted marching (band over forefoot) PT-OP-T Assessment and Plan Start: 09/29/22 19:36 Freq: Status: Active Protocol: Document 12/31/22 10:02 SP (Rec: 12/31/22 11:38 SP [id number]) Physical Therapy Assessment Goals Four Impairment Dizziness supine to sit in mornings. Impairment Dizziness in mornings after lying supine for extended period of time. Database Admin Goal (LTG) Pt will not have dizziness with bed mobility and transfers. 10/09/22: Pt no having dizziness with transfer sup<> sit<>stand. 11/03/22: No dizziness with bed mobility or transfers. 11/19/22: has episode of dizziness last Tues for 3 days and unable walk around and now balance worsened. 11/27/22: Reported balance has recovered to what it was before, no dizziness with bed mobility or transfers. 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 EXECUTIVE TALENT ACQUISITION CONSULTANT suggested further assessment Eye sight last may Cataract surgery. LTG Duration 01/01/23 improving 12/31/22 Three Impairment Gait Impairment Gait with decreased stride length (R>L), decreased feet clearance, flexed at hips, narrow MARILYNN. DGI score 18 (20<40% impaired, score 15-19) Hip strength: Flex 2+/5 nickie, ext 2-/5 nickie, AB 5/5 R, 2+/5 L , AD 2/5 R, 3/5 L. Hip AROM: Hip Ext - lacks ~10 deg's to neutral. Short Term Goal (STG) Improve hip strength and mobility and improve DGI score >19. 11/19/22: regressed by 2 pts: DGI 16 20-40% impaired. 11/27/22: DGI (20<40% impaired, score 15-19). 12/31/22: no change (20<40 % impaired, score 15-19) STG Duration 12/18/22 progressing 12/31/22 Mcfp Goal (LTG) Pt will be able to improve posture and LE strength for walking and will report less pain after 25 minutes of walking for shopping ([employer]). 11/19/22: partial met: walked around [facility] for 30 min with cart support. 11/27/22: Reported balance has recovered to what it was before and has returned to prior baseline. Still has hip pain, but not in the amount of time at [facility], 25 minutes). 12/31/22: was able to walk 45 min in [facility] and only need to stop briefly for recovery due to tiring/weakness. LTG Duration 01/01/23 (11/27/22: MET GOAL) Two Impairment Balance Impairment Ankle AROM: DF is 0 deg's nickie , IV is 0 deg's R, 10 deg's L, EV is 0 deg's R, 5 deg's L. Short Term Goal (STG) Improve ankle mobility (DF, IV , EV). 12/03/22: Ankle AROM: DF is 3 deg's nickie, IV is 40 deg's R, 20 deg's L, EV is 30 deg's R, 38 deg's L. STG Duration 12/18/22 (12/03/22: MET GOAL) Database Admin Goal (LTG) Pt confidence will improve per ABC score with greater use of ankle stratedgy for standing balance. 11/27/22: ABC score is 58 ( initial ABC score 56, 40<60% impaired, score 41-60). 12/31/22: ABC Questionaire: 64% (20-40% impaired), improvement of 6 points since 11/27/22 LTG Duration 01/08/23 progressed 12/31/22 One Impairment HEP Short Term Goal (STG) Pt will be educated in proper standing/sitting posture. 11/19/22: initiated but needs continued ed posturing seated/ standing added wall posture for HEP carryover effort feedback. 12/15/22: cues for standing posture during resisted hip abd. STG Duration 12/11/22 progressing 12/15/22 Mcfp Goal (LTG) Pt will be independent in a self care HEP of balance, hip/ ankle mobility and strengthening ex's, and knee strengthening. Pt will initiate an home walking program. 11/05/22: added standing hip abd, ext facing rail. 11/19/22: added resistance hip abd/ext, stagger stance corner balance, fwd sways away from wall encourage COG more fwd during gait. 12/10/22: added STS to HEP and reviewed side hip abd AROM. 12/15/22: added resistance to hip abd & ext, reviewed continue SLS heel raises LTG Duration 01/08/23 progressing Progress Towards Goals Progress Comments 12/31/22: ABC Questionaire: 64% (20-40% impaired), improvement of 6 points since 11/27/22, for progression of ankle strategies for balance stability. Assessment Summary Assessment Pt improving in stability and more confident in balance end of this tx with review on how to continue carryover at home. Pt is making and seeing gains in balance but does report continues have decreased sensory feeling in B LEs/ feet and feels is a contributing factor in his stability. Cues for COG more forward into BLEs full foot with elevated posture, core and scapular complex facilitation.EXECUTIVE TALENT ACQUISITION CONSULTANT suggested contacting physician and see if further assessment . Physical Therapy Plan Frequency and Duration Frequency of Treatment 2x/Week Plan of Care Start Date 11/27/22 Plan of Care End Date 01/08/23 Therapeutic Interventions Therapeutic Interventions Balance Training,Gait Training ,Home Exercise Program,Joint Mobilizations,Manual Therapy, Neuromuscular Re-education, Patient/Caregiver Education, Self-Care/Home Management, Therapeutic Activities, Therapeutic Exercises, Vestibular Rehabilitation Modalities Cold Pack/Ice Massage,Hot Packs Next Visit Focus/Plan Next Note Type Progress Note Next Visit Plan PN with update POC required next tx. CHeck BP and orthostatic if needed. Add hip ER, continue ABD strengthening. Next tx: recheck goals: DGI, ABC update. POC expires 01/08 and will need see PT to update, appts with PT 12/31, and 01/21 2 with PT between dates. Continue step ups. Review balance HEP, add wall fwd leans. Vestibular ex's (walking/ balance with head movement). Add step taps progress step ups for ability enter brother' s home no HR. Initiate ex/HEP: Ankle ROM and strengthening, progress 3 way hip strengthening, Aerobic ex for hips: under ADIS Perceived Exertion Scale for ex between very light and fairly light (101-110).
--- NOTE | 2023-03-15 16:52 | PT.OPDS ---
Current Diagnoses Other abnormalities of gait and mobility (12/31/22) Visit Care Team Role Provider Type Reynaldo Carter DO Attending Provider Physician Family Provider Primary Care Provider Referring Provider Specialty: Family Practice Address: [address] [place] [address], [facility] Email: [email or web address] Visit Number Visit Number 14 Discharge Summary PT-OP-B Current Condition Start: 09/29/22 19:36 Freq: Status: Active Protocol: Document 10/02/22 11:22 LRN (Rec: 10/02/22 12:35 LRN [id number]) Current Condition History of Current Condition Onset Date 2 yrs ago. Current Complaints Gait and mobility and dizziness w/gait/mobility. History of Current Condition States he has dizziness problems and is seeking PT because he got a new health care provider who has referred him to physical therapy. Pt reports falling a couple time, once last summer and most recently in April. Pt was by himself and falls occured due to same situation, sitting on chair and pushing himself away from a table. The chair legs caught on carpet, causing him and the chair to fall backwards, hitting his head on hardwood floor. Pt also c/o pain in both hips that is progressively worsening. The pain is of same intensity. Pain when on his feet outside his home, after ~25 minutes (like at [employer]). Another complaint is that he wakes in the morning and lays on his back looking at his phone. When he sits up he feels dizzy. In the middle of the night gets up w/o dizziness because he is laying on his side. 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 Treatment Goals Patient/Caregiver Goals Pt goal is to increase LE strength and posture for walking with less pain >25'. Pt agreeable to LE strengthening, balance and gait training, and being placed on a HEP. Personal Factors Other Personal Factors That May Effect Arthritis, back and neck pain, Therapy/Recovery dizziness and falls leading to bkwd falls hitting his head . PT-OP-C Subjective Start: 09/29/22 19:36 Freq: Status: Active Protocol: Document 12/31/22 10:02 SP (Rec: 12/31/22 11:38 SP [id number]) OP-PT Subjective Patient Comments Patient Comments Pt reports pain R medial knee (paints distal adductor to knee joint line) pain in past few days, especially come to standing and comes/goes. Pt reports is noticing seeing improvements, getting up/down back steps with use 1 HR better since started PT. Pt states feels not has socks on feet and can't feel completely so thinks plays factor with balance/stepping. Patient Questionnaires ABC- Activity Specific Balance Confidence Scale ABC Score 64 ABC Functional Impairment 20 to <40% Impaired (Score 61- 80) PT-OP-D Balance Start: 09/29/22 19:36 Freq: Status: Active Protocol: Document 10/02/22 11:22 LRN (Rec: 10/02/22 14:07 LRN [id number]) Balance Tests Single Limb Standing Single Limb- Right 0 Single Limb- Left 0 Semi-Tandem Standing Semi-Tandem Standing Balance 0 Pt not able to obtain position w/o LOB. PT-OP-E Functional Tests Start: 09/29/22 19:36 Freq: Status: Active Protocol: Document 12/31/22 10:02 SP (Rec: 12/31/22 11:38 SP [id number]) Functional Tests Dynamic Gait Index (DGI) Score 19 DGI Impairment Rating 20 to <40% Impaired (Score 15- 19) PT-OP-G Mobility & Gait Start: 09/29/22 19:36 Freq: Status: Active Protocol: Document 10/02/22 11:22 LRN (Rec: 10/02/22 12:35 LRN [id number]) OP Mobility Evaluation Bed Mobility Rolling Independent but slow. Supine to and from Sit Independent. No c/o dizziness with short stay on his back. Transfers Sit to Stand Independent with use of UE's OP Gait Assessment Gait Gait Assistance Required: Independent Assistive Devices Assistive Device None Gait Deviations General Gait Pattern Decreased Stride Length, Decreased Feet Clearance, Flexed Trunk,Narrow Based Gait Factors Limiting Gait Function Factors Limiting Gait Function Decreased Strength,Limited Range of Motion,Poor Balance PT-OP-H Neuro Start: 09/29/22 19:36 Freq: Status: Active Protocol: Document 10/09/22 11:19 LRN (Rec: 10/09/22 12:15 LRN [id number]) Vital Signs Pulse Standing after sitting Pulse at Rest (bpm) 105 Pulse Assessment Method Auto cuff Sitting after supine Pulse at Rest (bpm) 99 Pulse Assessment Method Auto cuff Supine at start Pulse at Rest (bpm) 94 Pulse Assessment Method Auto cuff Blood Pressure Standing after sitting Blood Pressure (90/60-120/80 mmHg) 131/82 H Blood Pressure Source Automatic Cuff Sitting after supine Blood Pressure (90/60-120/80 mmHg) 137/84 H Blood Pressure Source Automatic Cuff Supine at start Blood Pressure (90/60-120/80 mmHg) 145/86 H Blood Pressure Source Automatic Cuff Comments Vital Signs Comments No dizziness on sitting after supine for 15' PT-OP-J Posture/Palpation/Skin Start: 09/29/22 19:36 Freq: Status: Active Protocol: Document 10/02/22 11:22 LRN (Rec: 10/02/22 12:35 LRN [id number]) Posture Evaluation Position Standing Head/C-Spine Posture Forward Head Shoulder Posture (L) Elevated Arm Posture (L) Internally Rotated,(R) Internally Rotated Weight Distribution Balanced Knee Posture (L) Genu Varus,(R) Genu Varus Ankle/Foot Posture (L) Calcaneal Inversion,(R) Calcaneal Inversion Foot Arch (L) Low Arch,(R) Low Arch Comments Posture Comments R shoulder noticeably low. 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 PT-OP-K Range of Motion Start: 09/29/22 19:36 Freq: Status: Active Protocol: Document 10/12/22 13:01 LRN (Rec: 10/12/22 13:49 LRN [id number]) Hip Goniometric Range of Motion Hip Right Active Hip ROM WFL No Testing Position Supine Flexion w/Knee Flexed 130 Straight Leg Raise 55 Internal Rotation 50 External Rotation 50 Left Active Hip ROM WFL No Testing Position Supine Flexion w/Knee Flexed 130 Straight Leg Raise 45 Internal Rotation 20 External Rotation 70 PT-OP-M Strength Start: 09/29/22 19:36 Freq: Status: Active Protocol: Document 10/12/22 13:01 LRN (Rec: 10/12/22 13:49 LRN [id number]) Hip Strength Hip Manual Muscle Testing Right Flexion (L2) 2+ Poor+ Extension (S1) 2- Poor- Abduction 5 Normal Adduction 2 Poor Comments Pt lacks hip Ext Left Flexion (L2) 2+ Poor+ Extension (S1) 2- Poor- Abduction 2+ Poor+ Adduction 3 Fair Comments Pt lacks hip Ext PT-OP-T Assessment and Plan Start: 09/29/22 19:36 Freq: Status: Active Protocol: Document 03/15/23 14:04 LRN (Rec: 03/15/23 16:52 LRN [id number]) Physical Therapy Assessment Goals Four Impairment Dizziness supine to sit in mornings. Impairment Dizziness in mornings after lying supine for extended period of time. Plate Driller Goal (LTG) Pt will not have dizziness with bed mobility and transfers. 10/09/22: Pt no having dizziness with transfer sup<> sit<>stand. 11/03/22: No dizziness with bed mobility or transfers. 11/19/22: has episode of dizziness last Tues for 3 days and unable walk around and now balance worsened. 11/27/22: Reported balance has recovered to what it was before, no dizziness with bed mobility or transfers. 12/10/22: 2 instances of disorientation out in community stepping over curb uneven to level pavement and getting out car 12/31/22: REcently went to construction site and not getting dizzy but was on uneven ground and looking down feels up on high surface and hard to manager of loss prevention operations depth of surface for stepping safety. CONSULTING SOLUTION DIRECTOR suggested further assessment Eye sight last november Cataract surgery. LTG Duration 01/01/23 improving 12/31/22 Three Impairment Gait Impairment Gait with decreased stride length (R>L), decreased feet clearance, flexed at hips, narrow MARILYNN. DGI score 18 (20<40% impaired, score 15-19) Hip strength: Flex 2+/5 nickie, ext 2-/5 nickie, AB 5/5 R, 2+/5 L , AD 2/5 R, 3/5 L. Hip AROM: Hip Ext - lacks ~10 deg's to neutral. Short Term Goal (STG) Improve hip strength and mobility and improve DGI score >19. 11/19/22: regressed by 2 pts: DGI 20-40% impaired. 11/27/22: DGI (20<40% impaired, score 15-19). 12/31/22: no change (20<40 % impaired, score 15-19) STG Duration 12/18/22 progressing 12/31/22 Plate Driller Goal (LTG) Pt will be able to improve posture and LE strength for walking and will report less pain after 25 minutes of walking for shopping ([employer]). 11/19/22: partial met: walked around [facility] for 30 min with cart support. 11/27/22: Reported balance has recovered to what it was before and has returned to prior baseline. Still has hip pain, but not in the amount of time at [facility], 25 minutes). 12/31/22: was able to walk 45 min in [facility] and only need to stop briefly for recovery due to tiring/weakness. LTG Duration 01/01/23 (11/27/22: MET GOAL) Two Impairment Balance Impairment Ankle AROM: DF is 0 deg's nickie , IV is 0 deg's R, 10 deg's L, EV is 0 deg's R, 5 deg's L. Short Term Goal (STG) Improve ankle mobility (DF, IV , EV). 12/03/22: Ankle AROM: DF is 3 deg's nickie, IV is 40 deg's R, 20 deg's L, EV is 30 deg's R, 38 deg's L. STG Duration 12/18/22 (12/03/22: MET GOAL) Nursing Home Goal (LTG) Pt confidence will improve per ABC score with greater use of ankle stratedgy for standing balance. 11/27/22: ABC score is 58 ( initial ABC score 56, 40<60% impaired, score 41-60). 12/31/22: ABC Questionaire: 64% (20-40% impaired), improvement of 6 points since 11/27/22 LTG Duration 01/08/23 progressed 12/31/22 One Impairment HEP Short Term Goal (STG) Pt will be educated in proper standing/sitting posture. 11/19/22: initiated but needs continued ed posturing seated/ standing added wall posture for HEP carryover effort feedback. 12/15/22: cues for standing posture during resisted hip abd. STG Duration 12/11/22 progressing 12/15/22 Nursing Home Goal (LTG) Pt will be independent in a self care HEP of balance, hip/ ankle mobility and strengthening ex's, and knee strengthening. Pt will initiate an home walking program. 11/05/22: added standing hip abd, ext facing rail. 11/19/22: added resistance hip abd/ext, stagger stance corner balance, fwd sways away from wall encourage COG more fwd during gait. 12/10/22: added STS to HEP and reviewed side hip abd AROM. 12/15/22: added resistance to hip abd & ext, reviewed continue SLS heel raises LTG Duration 01/08/23 progressing Assessment Summary Assessment Pt is no longer attending physical therapy. His last attended appt was on 12/31/22. The pt met some of his goals, but pt was unavailable for a final functional assessment of DGI and ABC scores. The pt is being discharged from therapy for lack of attendance and no longer attending therapy. Physical Therapy Plan Discharge Physical Therapy Discharge Reasons No Longer Attending PT Discharge Comments Thank you for your referral.
== END 2023-03-18 12:33 | disposition home or self-care (01) ==
LOC: PHYS 10:00
PROVIDERS: Absent Provider Family Medicine; Family Provider Family Medicine; PCP Family Medicine; Referring Provider Family Medicine; Visit Provider Family Medicine
DX: R26.89 Other abnormalities of gait and mobility (principal)
CPT/HCPCS: 97110; 97112; 97116; 97162; 97530; 97535

== ENCOUNTER → 2023-02-09 12:14 | Outpatient (CLI) | payer MEDICARE, OTHER, SELFPAY ==
--- NOTE | 2023-02-09 12:15 | DI.CT.S_ITS ---
PROCEDURE: CT HEAD/BRAIN WO CON INDICATIONS: eval and treat balance disorder TECHNIQUE: Noncontrast 4.5 mm thick angled axial sections acquired from the foramen magnum to the vertex, with coronal and sagittal reformats. For radiation dose reduction, the following was used: automated exposure control, adjustment of mA and/or kV according to patient size. COMPARISON: None. FINDINGS: Image quality: Excellent. CSF spaces: Basal cisterns are patent. No extra-axial fluid collections. The ventricles are symmetric in size and shape. Brain: No intracranial bleeds or masses. There is cerebral volume loss for age, with resultant ventricular and sulcal prominence. There are moderate periventricular and deep white matter chronic small vessel ischemic changes. There is intracranial internal carotid artery atherosclerosis. Skull and face: Calvarium and visualized facial bones appear intact, without suspicious lesions. Sinuses: Visualized sinuses and mastoids are clear. IMPRESSION: 1. Age-related volume loss and moderate small vessel ischemic change. 2. No acute intracranial abnormality. Dictated by: Chon Lucio M.D. on 02/09/2023 at 15:38 Approved by: Chon Lucio M.D. on 02/09/2023 at 15:39
== END ==
PROVIDERS: Family Provider Family Medicine; PCP Family Medicine; Referring Provider Family Medicine; Visit Provider Family Medicine
DX: R26.89 Other abnormalities of gait and mobility (principal); R26.81 Unsteadiness on feet; I65.29 Occlusion and stenosis of unspecified carotid artery
CPT/HCPCS: 70450

== ENCOUNTER → 2023-03-23 12:26 | Outpatient (CLI) | payer MEDICARE, OTHER, SELFPAY ==
--- NOTE | 2023-03-23 12:28 | DI.RAD.S_ITS ---
PROCEDURE: XR CHEST 2V INDICATIONS: eval COPD TECHNIQUE: 2 views of the chest were acquired. COMPARISON: [facility], CR, XR CHEST 2V, 03/20/2021, 13:07. FINDINGS: Surgical changes and devices: None. Lungs and pleura: Emphysematous change. Lungs are clear. No pleural effusions or pneumothorax. Mediastinum: Mediastinal contours are normal. Heart size is normal. Bones and chest wall: No suspicious bony abnormalities. Soft tissues appear unremarkable. IMPRESSION: Emphysematous change. No evidence acute pulmonary process. Dictated by: Chon Lucio M.D. on 03/23/2023 at 13:57 Approved by: Chon Lucio M.D. on 03/23/2023 at 14:00
[2023-03-23 14:11] LABS: Add Manual Diff / Slide Review NO; Basophils Absolute Auto 0 /uL (0-100); Basophils Percent Auto 0.4 % (0-2); Eosinophils Absolute Auto 100 /uL (0-450); Hematocrit 42.2 % (41-53); Hemoglobin 14.8 g/dL (13.5-17.5); Lymphocytes Absolute Auto 1300 /uL (1100-4500); Lymphocytes Percent Auto 14.1 % (25-40); Mean Corpuscular HGB Conc 35.1 % (30-36); Mean Corpuscular Hemoglobin 36.7 PG (26-34); Mean Corpuscular Volume 104.7 fL (80-100); Monocytes Absolute Auto 1200 /uL (0-900); Monocytes Percent Auto 12.7 % (3-14); Neutrophils Absolute Auto 6600 /uL (1500-7000); Neutrophils Percent Auto 71.8 % (50-75); Platelet Count 247 X10^3/uL (150-400); Red Blood Cell Count 4.03 X10^6/uL (4.5-5.9); Red Cell Distribution Width 14.7 % (11.6-14.8); White Blood Cell Count 9.1 X10^3/uL (4.5-11.0)
[2023-03-23 14:17] LABS: Hemoglobin A1C% w Est Avg Glu 5.6 % (4.0-6.0)
[2023-03-23 14:36] LABS: Alanine Aminotransferase 40 IU/L (<50); Albumin 4.2 g/dL (3.5-5.0); Albumin Globulin Ratio 1.5 (1.0-2.8); Alkaline Phosphatase 113 U/L (38-126); Aspartate Aminotransferase 79 IU/L (17-59); BUN Creatinine Ratio 19.1 (6-22); Blood Urea Nitrogen 9 mg/dL (9-20); Calcium 9.3 mg/dL (8.4-10.2); Carbon Dioxide 28 mmol/L (22-32); Chloride 97 mmol/L (98-107); Estimated Glomerular Filt Rate > 60 mL/min (>60); Globulin 2.8 g/dL (1.7-4.1); Glucose 105 mg/dL (80-110); HEMOLYSIS 20 (0-50); Potassium 4.3 mmol/L (3.4-5.1); Sodium 134 mmol/L (137-145)
[2023-03-23 14:39] LABS: HEMOLYSIS < 15 (0-50); Iron 88 ug/dL (49-181)
[2023-03-23 14:51] LABS: Percent Iron Saturation 30 % (20-50); Total Iron Binding Capacity 295 ug/dL (261-462); Transferrin 216 mg/dL (206-381)
[2023-03-23 15:06] LABS: Prostate Specific Antigen Scrn 0.843 ng/mL (0.1-4.0)
[2023-03-23 15:25] LABS: Vitamin B12 764 pg/mL (239-931)
== END ==
PROVIDERS: Family Provider Family Medicine; PCP Family Medicine; Referring Provider Family Medicine; Visit Provider Family Medicine
DX: F17.200 Nicotine dependence, unspecified, uncomplicated (principal); Z12.5 Encounter for screening for malignant neoplasm of prostate; J44.9 Chronic obstructive pulmonary disease, unspecified; R63.4 Abnormal weight loss; E78.2 Mixed hyperlipidemia; I10 Essential (primary) hypertension
CPT/HCPCS: 36415; 71046; 80053; 82607; 83036; 83540; 83550; 85025; G0103

== ENCOUNTER 2023-04-01 09:06 | Day surgery (SDC) | payer MEDICARE, OTHER, SELFPAY ==
--- NOTE | 2023-04-01 | PATH_ITS ---
[facility] Accession Number: [id number] No. of containers..06 Tissue . 01 Material submitted: . PART A: duodenum bulb - DUODENUM BULB PART B: gastrointestinal site - ANTRUM BIOPSY PART C: gastrointestinal site - BODY BIOPSY PART D: colon - ASCENDING COLON POLYP PART E: colon - TRANSVERSE POLYPS PART F: colon - COLON CONTENTS . 01 Diagnosis: A. Duodenal Bulb, Biopsy: Duodenal mucosa with mild active inflammation. No evidence of celiac disease. See comment. . B. Antrum, Biopsy: Gastric mucosa with mild chronic inflammation. No Helicobacter pylori organisms identified on immunohistochemical evaluation. No intestinal metaplasia, dysplasia, or malignancy identified. . C. Body, Biopsy: Gastric mucosa with mild chronic inflammation. No Helicobacter pylori organisms identified on immunohistochemical evaluation. No intestinal metaplasia, dysplasia, or malignancy identified. . D. Ascending Colon Polyp, Biopsy: Tubular adenoma. . E. Transverse Colon Polyps, Biopsy: Tubular adenomas. . F. Colon Contents, Biopsy: Foreign body material. No colonic tissue identified. [facility] 04/08/2023 1558 Local . 01 Comment: A. The features raise a differential diagnosis including peptic duodenitis or NSAID-induced injury, among other possibilities. . 01 Electronically signed: . Mimi Pendleton MD, Pathologist NPI- [id number] . 01 Gross description: . Part A: DUODENUM BULB: Received in formalin is 2 fragment(s) of neil, soft tissue measuring 0.3 x 0.2 x 0.2 cm to 0.1 x 0.1 x 0.1 cm submitted entirely in 1 cassette(s) Part B: ANTRUM BIOPSY: Received in formalin is 4 fragment(s) of neil, soft tissue measuring 0.3 x 0.1 x 0.1 cm to 0.2 x 0.1 x 0.1 cm submitted entirely in 1 cassette(s) Part C: BODY BIOPSY: Received in formalin is 2 fragment(s) of neil, soft tissue measuring 0.5 x 0.1 x 0.1 cm to 0.2 x 0.2 x 0.1 cm submitted entirely in 1 cassette(s) Part D: ASCENDING COLON POLYP: Received in formalin is multiple fragment(s) of neil, soft tissue measuring 1.5 x 0.6 x 0.4 cm in aggregate submitted entirely in 1 cassette(s) Part E: TRANSVERSE POLYPS: Received in formalin is multiple fragment(s) of neil, soft tissue measuring 2.0 x 0.5 x 0.2 cm in aggregate submitted entirely in 1 cassette(s) Part F: COLON CONTENTS: Received in formalin multiple fragment(s) of brown-red, firm tissue measuring 2.5 x 2.0 x 0.5 cm in aggregate submitted entirely in 1 cassette(s) /AAY 04/02/2023 0511 Local . 01 Microscopic: . B. An immunohistochemical stain was performed to evaluate for Helicobacter organisms and is negative. The control stain showed appropriate reactivity. . C. An immunohistochemical stain was performed to evaluate for Helicobacter organisms and is negative. The control stain showed appropriate reactivity. . * This test was developed and its performance characteristics determined by [facility]. It has not been cleared or approved by the U.S. Food and Drug Administration. The FDA has determined that such clearance or approval is not necessary. This test is used for clinical purposes. It should not be regarded as investigational or for research. . 01 Pathologist provided ICD-10: K29.80, K29.70, D12.2, D12.3 . 01 CPT . 311605, 896492, 671761, 744078, 390608, 277154, [id number] Specimen Comment: A courtesy copy of this report has been sent to [phone] Performed at: 01 [facility] [address] [place] [address], [place], [place] [id number] MD Ad Rolle MD Phone: [phone]
[2023-04-01] MEDS: ALBUTEROL/IPRATROPIUM 3 ML AMPUL INH (09:24)
[2023-04-01] MEDS: LACTATED RINGERS 1,000 ML 42 ML IV (09:24)
[2023-04-01 09:25] VITALS: BP 116/79; PULSE 93; RESP 16; TEMP 36.1; O2SAT 98; BMI 25.9
--- NOTE | 2023-04-01 10:33 | PM.PREOP ---
Pre-operative Note COVID-19 COVID-19 status: Not tested Interval Note History & Physical reviewed/Exam performed by Physician: Yes Changes to H&P: Yes H&P completed within 30 days and has changed as indicated here:: We will include esophagogastroduodenoscopy due to his weight loss of unknown etiology. ASA Class (for procedural sedation): III
--- NOTE | 2023-04-01 11:26 | P.OP.COLON_ITS ---
Operative Date/Time/Diagnoses Date of procedure: 04/01/23 Time of procedure: 11:26 Pre-op diagnosis: History of colon polyps and weight loss Post-op diagnosis: same Procedure & Clinicians Study performed: Colonoscopy Same procedure as scheduled: Yes Surgeon: Cj Covarrubias Procedure Notes Procedure in detail: Surgeon: Cj Covarrubias MD Anesthesia: Mell Martinez CRNA Procedure in detail: A timeout was performed. A bite blocked was placed and monitors were attached to the patient. The patient was positioned in a left lateral decubitus position. Sedation was administered. Once the patient was sedated the endoscope was inserted through the bite block and passed through the esophagus and stomach and into the duodenum. There was significant duodenitis in the bulb. Random biopsies were taken from the duodenal bulb mucosa. We then withdrew the scope into the stomach. Moderate antritis was seen and some small scattered ulcers were seen in the mid and distal stomach. We performed biopsies from the antrum and body of the stomach. The endoscope was retroflexed and no hiatal hernia was seen. The endoscope was straightned and withdrawn into the esophagus. No esophageal abnormalities were seen. Findings: Duodenitis and antritis We started the colonoscopy next. A digital rectal exam was performed and was normal. The scope was then inserted and advanced to the cecum where the appendiceal orifice was identified and photographed. The prep was inadequate to thoroughly evaluate the colon. There did appear to be free-floating tissue throughout the colon, greatest in the distal colon but no obvious mass was identified. A 1.5 cm polyp was removed from the ascending colon. Two 7 mm polyps were removed from the transverse colon and sent together. The scope was then slowly withdrawn over greater than 6 minutes. Several samples of the free- floating tissue were retrieved sent as ?colon contents?. No source for the free floating tissue was found however the prep was poor and colon could not be seen in its entirety. The scope was retroflexed in the rectum. No masses were seen in the distal rectum. The scope was straightened and removed. The patient was awakened and brought to recovery. Findings: Inadequate prep, multiple polyps and free-floating tissue EBL: 5 mL Scope withdrawal time: 18 minutes Sedation minutes: 24 minutes Post-procedure Disposition: PACU
[2023-04-01 11:31] VITALS: BP 123/88; PULSE 88; RESP 16; TEMP 36.7; O2SAT 93
[2023-04-01 11:34] VITALS: BP 128/77; PULSE 84; RESP 16; O2SAT 93
[2023-04-01 11:40] VITALS: BP 126/77; PULSE 78; RESP 13; O2SAT 92
[2023-04-01 11:44] VITALS: BP 136/83; PULSE 90; RESP 16; O2SAT 93
== END 2023-04-01 12:11 | disposition home or self-care (01) ==
PROVIDERS: Family Provider Family Medicine; PCP Family Medicine; Referring Provider Surgery; Visit Provider Surgery
PROC: 0DJ08ZZ Inspection of Upper Intestinal Tract, Via Natural or Artificial Opening Endoscopic (ICD-10-PCS; CPT 43235; principal; 2023-04-01 10:00)
PROC: 0DJD8ZZ Inspection of Lower Intestinal Tract, Via Natural or Artificial Opening Endoscopic (ICD-10-PCS; CPT 45378; 2023-04-01 10:00)
DX: Z12.11 Encounter for screening for malignant neoplasm of colon (principal); Z86.010 Personal history of colon polyps; R63.4 Abnormal weight loss; K29.80 Duodenitis without bleeding; K29.50 Unspecified chronic gastritis without bleeding; D12.3 Benign neoplasm of transverse colon
CPT/HCPCS: 45380; 43239; J2704

== ENCOUNTER → 2023-04-09 13:26 | Outpatient (CLI) | payer MEDICARE, OTHER, SELFPAY ==
--- NOTE | 2023-04-09 13:27 | DI.CT.S_ITS ---
PROCEDURE: CT ABDOMEN PELVIS W CON INDICATIONS: Abnormal weight loss TECHNIQUE: After the administration of oral and IV contrast, axial sections were acquired from the lung bases to the pubic symphysis. Coronal and sagittal reformats were performed. For radiation dose reduction, the following was used: automated exposure control, adjustment of mA and/or kV according to patient size. COMPARISON: None. FINDINGS: Image quality: Excellent. Lung bases: Unremarkable. Heart: No significant findings. ABDOMEN: Liver: No focal lesion. Gallbladder: Within normal limits. Biliary ducts: Unremarkable. Pancreas: Enhances uniformly. Spleen: No splenomegaly. Adrenal Glands: No nodule. Kidneys and Ureters: No hydronephrosis. No solid renal mass. Simple left renal cyst measuring 2.8 cm. Stomach and Bowel: Stomach, small bowel loops, and colon are unremarkable. Diverticulosis. Normal appendix. Peritoneum: No abnormal intraperitoneal fluid. No free air. Ventral Wall: No hernia. Abdominal Nodes: No retroperitoneal or mesenteric adenopathy by size criteria. Vessels: Aorta and inferior vena cava are normal in size. Moderate to severe plaque. PELVIS: Pelvic Organs: Unremarkable. Bladder: Unremarkable. Pelvic Nodes: No enlarged lymph nodes. Miscellaneous: No inguinal hernias are seen. Bones: No suspicious lesion. No compression fracture. IMPRESSION: 1. No mass or adenopathy. No free fluid. 2. Diverticulosis. Dictated by: Roberto Mcgill M.D. on 04/09/2023 at 16:14 Approved by: Roberto Mcgill M.D. on 04/09/2023 at 16:21
== END ==
PROVIDERS: Family Provider Family Medicine; PCP Family Medicine; Referring Provider Surgery; Visit Provider Surgery
DX: R63.4 Abnormal weight loss (principal); K57.90 Diverticulosis of intestine, part unspecified, without perforation or abscess without bleeding
CPT/HCPCS: 74177; Q9967

== ENCOUNTER 2023-04-15 20:01 | Emergency (ER) | payer MEDICARE, OTHER, SELFPAY ==
[2023-04-15] VITALS (13 sets, daily range): BP systolic 93–124; BP diastolic 55–70; PULSE 82–90; RESP 16; TEMP 36.6; O2SAT 91–97; BMI 26.4
--- NOTE | 2023-04-15 20:27 | DI.RAD.S_ITS ---
PROCEDURE: XR CHEST 1V INDICATIONS: chest pain TECHNIQUE: One view of the chest was acquired. COMPARISON: [facility], CR, XR CHEST 2V, 03/23/2023, 13:06. FINDINGS: Surgical changes and devices: None. Lungs and pleura: Lungs are clear. No pleural effusions or pneumothorax. Mediastinum: Mediastinal contours appear normal. Heart size is normal. Bones and chest wall: No suspicious bony lesions. Overlying soft tissues appear unremarkable. IMPRESSION: 1. No acute cardiopulmonary disease. Dictated by: Ad Velasco M.D. on 04/15/2023 at 21:19 Approved by: Ad Velasco M.D. on 04/15/2023 at 21:22
[2023-04-15 20:39] LABS: Add Manual Diff / Slide Review NO; Basophils Absolute Auto 0 /uL (0-100); Basophils Percent Auto 0.5 % (0-2); Eosinophils Absolute Auto 100 /uL (0-450); Eosinophils Percent Auto 1.1 % (2-4); Hematocrit 39.3 % (41-53); Hemoglobin 13.3 g/dL (13.5-17.5); Lymphocytes Absolute Auto 1400 /uL (1100-4500); Lymphocytes Percent Auto 16.1 % (25-40); Mean Corpuscular HGB Conc 33.8 % (30-36); Mean Corpuscular Hemoglobin 34.5 PG (26-34); Monocytes Absolute Auto 800 /uL (0-900); Monocytes Percent Auto 9.1 % (3-14); Neutrophils Absolute Auto 6200 /uL (1500-7000); Neutrophils Percent Auto 73.2 % (50-75); Platelet Count 225 X10^3/uL (150-400); Red Blood Cell Count 3.86 X10^6/uL (4.5-5.9); Red Cell Distribution Width 14.7 % (11.6-14.8); White Blood Cell Count 8.5 X10^3/uL (4.5-11.0)
[2023-04-15 20:41] LABS: INR 1.1 (0.9-1.3); Prothrombin Time 12.6 SECONDS (10.1-12.7)
--- NOTE | 2023-04-15 20:42 | PC.NURSE ---
ORNAMENTAL IRONWORKER HELPER note: Attempted to do a full set of orthostatic vitals (laying, sitting, and standing). Patient could lay and sit but preferred not to stand. Brother said that patient hasn't stood up in about a month. Obtained vitals for sitting and laying. Told MANE Hager.
[2023-04-15 20:43] LABS: PTT Partial Thromboplastin Tim 29 SECONDS (26-36)
--- NOTE | 2023-04-15 20:44 | DI.CT.S_ITS ---
PROCEDURE: CT CERVICAL SPINE WO CON INDICATIONS: fall TECHNIQUE: Noncontrast 3 mm thick sections acquired from the skull base to the T4 level. Sagittal and coronal reformats were then constructed. For radiation dose reduction, the following was used: automated exposure control, adjustment of mA and/or kV according to patient size. COMPARISON: None. FINDINGS: Image quality: Excellent. Bones: No fractures or subluxation. There is straightening of the cervical lordosis. Minimal retrolisthesis demonstrated at C3-C4. There is multilevel degenerative disc disease and facet joint arthropathy. Visualized superior ribs are intact. Soft tissues: Prevertebral soft tissues are normal in thickness. No paravertebral hematomas. No apical pneumothoraces. IMPRESSION: 1. No acute fracture or subluxation. Dictated by: Ad Velasco M.D. on 04/15/2023 at 21:39 Approved by: Ad Velasco M.D. on 04/15/2023 at 21:45
--- NOTE | 2023-04-15 20:44 | DI.CT.S_ITS ---
PROCEDURE: CT HEAD/BRAIN WO CON INDICATIONS: can't walk TECHNIQUE: Noncontrast 4.5 mm thick angled axial sections acquired from the foramen magnum to the vertex, with coronal and sagittal reformats. For radiation dose reduction, the following was used: automated exposure control, adjustment of mA and/or kV according to patient size. COMPARISON: [facility], CT, CT HEAD/BRAIN WO CON, 02/09/2023, 12:30. FINDINGS: Image quality: Excellent. CSF spaces: Basal cisterns are patent. There is a small right choroidal fissure cyst. There is mild cerebral volume loss, with resultant ventricular and sulcal prominence. Brain: No intracranial hemorrhage, mass, or mass effect. There are subcortical, periventricular and deep white matter hypodensities consistent with mild chronic small vessel ischemic changes. The gonzalez-white matter junction appears preserved. There is intracranial internal carotid artery atherosclerosis. Skull and face: Calvarium and visualized facial bones appear intact, without suspicious lesions. Sinuses: Visualized sinuses and mastoids are clear. IMPRESSION: 1. No acute intracranial abnormality. 2. Mild cerebral volume loss and chronic white matter small vessel ischemic changes. Dictated by: Ad Velasco M.D. on 04/15/2023 at 21:35 Approved by: Ad Velasco M.D. on 04/15/2023 at 21:38
[2023-04-15 20:46] LABS: Alanine Aminotransferase 21 IU/L (<50); Albumin 3.3 g/dL (3.5-5.0); Albumin Globulin Ratio 1.1 (1.0-2.8); Alkaline Phosphatase 102 U/L (38-126); Aspartate Aminotransferase 29 IU/L (17-59); BUN Creatinine Ratio 18.3 (6-22); Bilirubin Total 0.4 mg/dL (0.2-1.3); Blood Urea Nitrogen 11 mg/dL (9-20); Carbon Dioxide 24 mmol/L (22-32); Chloride 100 mmol/L (98-107); Creatine Kinase 28 U/L (55-170); Estimated Glomerular Filt Rate > 60 mL/min (>60); Globulin 2.9 g/dL (1.7-4.1); Glucose 107 mg/dL (80-110); HEMOLYSIS < 15 (0-50); Lipase 72 U/L (23-300); Magnesium 1.6 mg/dL (1.6-2.3); Potassium 3.4 mmol/L (3.4-5.1); Sodium 135 mmol/L (137-145); Total Protein 6.2 g/dL (6.3-8.2)
[2023-04-15] MEDS: SODIUM CHLORIDE 0.9% 1,000 ML 1000 ML IV (20:52)
[2023-04-15 20:57] LABS: Troponin I < 0.012 ng/mL (0.01-0.034)
[2023-04-15 21:17] LABS: Ethanol (ETOH) 37 mg/dL
--- NOTE | 2023-04-15 23:05 | PC.NURSE ---
Pt desating multiple time while sleeping, place in 2L NC at this time.
[2023-04-16] VITALS (16 sets, daily range): BP systolic 100–128; BP diastolic 55–67; PULSE 78–101; RESP 16–20; O2SAT 92–97
--- NOTE | 2023-04-16 00:16 | ED.SYNCOPE ---
HPI - Syncope General Chief Complaint: Syncope Stated Complaint: syncope with etoh Time Seen by Provider: 04/15/23 20:44 Source: patient and EMS Mode of arrival: EMS Limitations: no limitations History of Present Illness HPI narrative: Patient is a 77-year-old male history of hyperlipidemia atrial fibrillation alcohol abuse balance disorder presenting today during her syncopal episode. 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 He is difficulty sleeping at night so his brother gave him 2his trazodone which he took with alcohol. He took 2 while sitting in the recliner before going to bed. He stood up and then briefly passed out. He hit his head but no loss of consciousness nausea or vomiting. No numbness tingling or weakness. He denies any chest pain or palpitations. It is difficult for him to get around at baseline secondary to this neuropathy. He does fall he uses a wheelchair. Related Data Home Medications Medication Instructions Recorded Confirmed ipratropium 20 mcg-albuterol 100 1 puff inhalation QID PRN 11/29/18 03/23/23 mcg/actuation mist for inhalation (Combivent Respimat) Previous Rx's Medication Instructions Recorded blood pressure cuff #1 ea 02/22/20 budesonide-formoterol HFA 160 1 puff inhalation DAILY PRN copd 03/19/21 mcg-4.5 mcg/actuation aerosol #10.2 grams inhaler (Symbicort) atorvastatin 10 mg tablet 10 mg PO DAILY #90 tabs 07/31/22 albuterol sulfate 90 mcg/actuation See Rx Instructions .Route 03/08/23 aerosol inhaler .COMPLEX #8.5 grams sodium,potassium,mag sulfates 17.5 See Rx Instructions PO .COMPLEX 03/22/23 gram-3.13 gram-1.6 gram oral soln #354 mL (Suprep Bowel Prep Kit) Allergies Allergy/AdvReac Type Severity Reaction Status Date / Time pollen extracts Allergy Severe Difficulty Verified 04/01/23 09:24 Breathing cat dander Allergy Intermediate asthma Verified 04/01/23 09:24 yellow jacket Allergy Intermediate rash on Uncoded 04/01/23 09:24 neck Review of Systems Review of Systems ROS Unobtainable: All systems reviewed & are unremarkable except as noted in HPI and below Patient History Medical History Atrial flutter Balance disorder Bilateral hip pain (11/2019) Colon polyps COPD (chronic obstructive pulmonary disease) Food aversion (11/2019) Hyperactive gag reflex (11/2019) Hypertension Mixed hyperlipidemia Numbness Perioral dermatitis Red eye Runny nose (11/2019) Seasonal allergies Weight loss Social History household members: other Smoking Status: Current every day smoker Tobacco: How many years used: 48 second hand exposure: Yes (Dad smoked) alcohol intake: current substance use type: marijuana (vape, couple times a week) Smoking Status: Current every day smoker alcohol intake frequency: 3 or more drinks per day Alcohol type: hard liquor Substance Use Type: marijuana Exam Initial Vital Signs Initial Vital Signs: Vital Signs Temperature 97.8 F 04/15/23 20:10 Pulse Rate 84 04/15/23 20:10 Respiratory Rate 16 04/15/23 20:10 Blood Pressure 106/63 04/15/23 20:10 Pulse Oximetry 93 04/15/23 20:10 Oxygen Delivery Method Room Air 04/15/23 20:10 GENERAL: Alert very pleasant 77-year-old male HEENT: Head atraumatic,EOMI, pupils reactive, face symmetric, moist mucous membranes CARDIOVASCULAR: Regular rate and rhythm without murmurs, rubs or gallops. RESPIRATORY: Breath sounds equal bilaterally, no wheezes rales or rhonchi. ABDOMEN: Soft, nontender. Normoactive bowel sounds all 4 quadrants. No guarding or rebound. EXTREMITIES: Normal range of motion, no clubbing or edema. Neurovascularly intact NEUROLOGICAL: Alert and oriented x4.Normal gait and speech. Cranial nerves II through XII grossly intact. Good docqok-ea-ocxs, good nfte-sf-tdvz, strength equal bilaterally, no dysarthria or aphasia, sensation in tact to soft touch bilaterally, no visual changes, no facial droop SKIN: Warm, dry, no laceration, no petechiae, no rashes or lesions. Course Orders Ordered: Discontinued Medications Sodium Chloride (Normal Saline 0.9%) 1,000 mls @ 1,000 mls/hr IV BOLUS ONE Stop: 04/15/23 21:45 Last Infusion: 04/15/23 21:27 Dose: 0 mls/hr Documented By: Admin: 04/15/23 20:52 Dose: 1,000 mls/hr Documented By: EMILIE Vital Signs Vital signs: Vital Signs - 8 hr 04/15/23 22:30 04/15/23 22:30 04/15/23 23:00 Pulse Rate 82 Respiratory Rate Blood Pressure 116/58 L 104/55 L Blood Pressure [Orthostatic Lying] Blood Pressure [Orthostatic Sitting] Pulse Oximetry 92 95 Oxygen Delivery Method Nasal Cannula Oxygen Flow Rate 2 04/15/23 23:00 04/15/23 23:30 04/15/23 23:30 Pulse Rate 86 85 Respiratory Rate Blood Pressure 107/56 L Blood Pressure [Orthostatic Lying] Blood Pressure [Orthostatic Sitting] Pulse Oximetry 96 Oxygen Delivery Method Nasal Cannula Oxygen Flow Rate 2 04/16/23 00:00 04/16/23 00:00 04/16/23 00:30 Pulse Rate 85 Respiratory Rate Blood Pressure 106/55 L 100/63 Blood Pressure [Orthostatic Lying] Blood Pressure [Orthostatic Sitting] Pulse Oximetry 96 Oxygen Delivery Method Nasal Cannula Oxygen Flow Rate 2 04/16/23 00:30 04/16/23 00:36 04/16/23 00:36 Pulse Rate 96 H 101 H Respiratory Rate Blood Pressure 114/67 Blood Pressure [Orthostatic Lying] Blood Pressure [Orthostatic Sitting] Pulse Oximetry 95 92 Oxygen Delivery Method Nasal Cannula Nasal Cannula Oxygen Flow Rate 2 2 04/16/23 00:49 04/16/23 01:00 04/16/23 01:00 Pulse Rate 94 H Respiratory Rate Blood Pressure 104/56 L Blood Pressure [Orthostatic Lying] 110/63 Blood Pressure [Orthostatic Sitting] 114/67 Pulse Oximetry 96 Oxygen Delivery Method Oxygen Flow Rate 04/16/23 01:30 04/16/23 01:30 04/16/23 02:00 Pulse Rate 90 Respiratory Rate 18 Blood Pressure 110/65 117/59 L Blood Pressure [Orthostatic Lying] Blood Pressure [Orthostatic Sitting] Pulse Oximetry 97 Oxygen Delivery Method Oxygen Flow Rate 04/16/23 02:00 04/16/23 02:30 04/16/23 02:30 Pulse Rate 84 80 Respiratory Rate Blood Pressure 113/62 Blood Pressure [Orthostatic Lying] Blood Pressure [Orthostatic Sitting] Pulse Oximetry Oxygen Delivery Method Oxygen Flow Rate 04/16/23 03:00 04/16/23 03:30 04/16/23 04:00 Pulse Rate 79 79 Respiratory Rate Blood Pressure 123/59 L Blood Pressure [Orthostatic Lying] Blood Pressure [Orthostatic Sitting] Pulse Oximetry Oxygen Delivery Method Oxygen Flow Rate 04/16/23 04:00 04/16/23 04:30 04/16/23 04:30 Pulse Rate 82 81 Respiratory Rate Blood Pressure 103/59 L Blood Pressure [Orthostatic Lying] Blood Pressure [Orthostatic Sitting] Pulse Oximetry Oxygen Delivery Method Oxygen Flow Rate 04/16/23 05:00 04/16/23 05:00 04/16/23 05:30 Pulse Rate 78 Respiratory Rate Blood Pressure 128/65 110/55 L Blood Pressure [Orthostatic Lying] Blood Pressure [Orthostatic Sitting] Pulse Oximetry Oxygen Delivery Method Oxygen Flow Rate 04/16/23 05:30 04/16/23 06:00 04/16/23 06:18 Pulse Rate 79 79 Respiratory Rate 16 20 Blood Pressure 109/59 L Blood Pressure [Orthostatic Lying] Blood Pressure [Orthostatic Sitting] Pulse Oximetry 96 Oxygen Delivery Method Room Air Oxygen Flow Rate MDM - Syncope Lab Data 04/15/23 20:15 04/15/23 20:15 Labs: Lab Results 04/15/23 04/15/23 04/15/23 Range/Units 20:15 20:15 20:15 WBC 8.5 (4.5-11.0) X10^3/uL RBC 3.86 L (4.5-5.9) X10^6/uL Hgb 13.3 L (13.5-17.5) g/dL Hct 39.3 L (41-53) % MCV 102.0 H (80-100) fL MCH 34.5 H (26-34) PG MCHC 33.8 (30-36) % RDW 14.7 (11.6-14.8) % Plt Count 225 (150-400) X10^3/uL Neut % (Auto) 73.2 (50-75) % Lymph % (Auto) 16.1 L (25-40) % [place] % (Auto) 9.1 (3-14) % Eos % (Auto) 1.1 L (2-4) % Baso % (Auto) 0.5 (0-2) % Neut # (Auto) 6200 (7708-9235) /uL Lymph # (Auto) 1400 (3552-1581) /uL [place] # (Auto) 800 (0-900) /uL Eos # (Auto) 100 (0-450) /uL Baso # (Auto) 0 (0-100) /uL PT 12.6 (10.1-12.7) SECONDS INR 1.1 (0.9-1.3) APTT 29 (26-36) SECONDS Sodium 135 L (137-145) mmol/L Potassium 3.4 (3.4-5.1) mmol/L Chloride 100 (98-107) mmol/L Carbon Dioxide 24 (22-32) mmol/L BUN 11 (9-20) mg/dL Creatinine 0.60 L (0.66-1.25) mg/dL Estimated GFR > 60 (>60) mL/min BUN/Creatinine Ratio 18.3 (6-22) Glucose 107 (80-110) mg/dL Calcium 9.0 (8.4-10.2) mg/dL Magnesium 1.6 (1.6-2.3) mg/dL Total Bilirubin 0.4 (0.2-1.3) mg/dL AST 29 (17-59) IU/L ALT 21 (<50) IU/L Alkaline Phosphatase 102 (38-126) U/L Total Creatine Kinase 28 L (55-170) U/L Troponin I < 0.012 (0.01-0.034) ng/mL Total Protein 6.2 L (6.3-8.2) g/dL Albumin 3.3 L (3.5-5.0) g/dL Globulin 2.9 (1.7-4.1) g/dL Albumin/Globulin Ratio 1.1 (1.0-2.8) Lipase 72 (23-300) U/L Ethyl Alcohol ( - 10) mg/dL 04/15/23 Range/Units 20:15 WBC (4.5-11.0) X10^3/uL RBC (4.5-5.9) X10^6/uL Hgb (13.5-17.5) g/dL Hct (41-53) % MCV (80-100) fL MCH (26-34) PG MCHC (30-36) % RDW (11.6-14.8) % Plt Count (150-400) X10^3/uL Neut % (Auto) (50-75) % Lymph % (Auto) (25-40) % [place] % (Auto) (3-14) % Eos % (Auto) (2-4) % Baso % (Auto) (0-2) % Neut # (Auto) (8080-3618) /uL Lymph # (Auto) (1257-1172) /uL [place] # (Auto) (0-900) /uL Eos # (Auto) (0-450) /uL Baso # (Auto) (0-100) /uL PT (10.1-12.7) SECONDS INR (0.9-1.3) APTT (26-36) SECONDS Sodium (137-145) mmol/L Potassium (3.4-5.1) mmol/L Chloride (98-107) mmol/L Carbon Dioxide (22-32) mmol/L BUN (9-20) mg/dL Creatinine (0.66-1.25) mg/dL Estimated GFR (>60) mL/min BUN/Creatinine Ratio (6-22) Glucose (80-110) mg/dL Calcium (8.4-10.2) mg/dL Magnesium (1.6-2.3) mg/dL Total Bilirubin (0.2-1.3) mg/dL AST (17-59) IU/L ALT (<50) IU/L Alkaline Phosphatase (38-126) U/L Total Creatine Kinase (55-170) U/L Troponin I (0.01-0.034) ng/mL Total Protein (6.3-8.2) g/dL Albumin (3.5-5.0) g/dL Globulin (1.7-4.1) g/dL Albumin/Globulin Ratio (1.0-2.8) Lipase (23-300) U/L Ethyl Alcohol 37 H ( - 10) mg/dL Imaging Data Chest x-ray: Radiologist's Impression: PROCEDURE:? XR CHEST 1V ? INDICATIONS:? chest pain ? TECHNIQUE:? One view of the chest was acquired.? ? COMPARISON:? [facility], CR, XR CHEST 2V, 03/23/2023, 13:06. ? FINDINGS:? ? Surgical changes and devices:? None.? ? Lungs and pleura:? Lungs are clear.? No pleural effusions or pneumothorax.? ? Mediastinum:? Mediastinal contours appear normal.? Heart size is normal.? ? Bones and chest wall:? No suspicious bony lesions.? Overlying soft tissues appear unremarkable.? ? ? IMPRESSION:? ? 1.? No acute cardiopulmonary disease. ? ? ? Dictated by: Ad Velasco M.D. on 04/15/2023 at 21:19 ? ? CT - cervical spine: Radiologist's Impression: PROCEDURE:? CT CERVICAL SPINE WO CON ? INDICATIONS:? fall ? TECHNIQUE:? Noncontrast 3 mm thick sections acquired from the skull base to the T4 level.? Sagittal and coronal reformats were then constructed.? For radiation dose reduction, the following was used:? automated exposure control, adjustment of mA and/or kV according to patient size.? ? COMPARISON:? None. ? FINDINGS:? Image quality:? Excellent.? ? Bones:? No fractures or subluxation.? There is straightening of the cervical lordosis.? Minimal retrolisthesis demonstrated at C3-C4.? There is multilevel degenerative disc disease and facet joint arthropathy.? Visualized superior ribs are intact.? ? Soft tissues:? Prevertebral soft tissues are normal in thickness.? No paravertebral hematomas.? No apical pneumothoraces.? ? ? IMPRESSION:? ? 1. No acute fracture or subluxation. ? ? ? Dictated by: Ad Velasco M.D. on 04/15/2023 at 21:39 ? ? CT scan - head: Radiologist's Impression: PROCEDURE:? CT HEAD/BRAIN WO CON ? INDICATIONS:? can't walk ? TECHNIQUE:? Noncontrast 4.5 mm thick angled axial sections acquired from the foramen magnum to the vertex, with coronal and sagittal reformats.? For radiation dose reduction, the following was used:? automated exposure control, adjustment of mA and/or kV according to patient size.? ? COMPARISON:? [facility], CT, CT HEAD/BRAIN WO CON, 02/09/2023, 12:30. ? FINDINGS:? Image quality:? Excellent.? ? CSF spaces:? Basal cisterns are patent.? There is a small right choroidal fissure cyst.? There is mild cerebral volume loss, with resultant ventricular and sulcal prominence.? ? Brain:? No intracranial hemorrhage, mass, or mass effect.? There are subcortical, periventricular and deep white matter hypodensities consistent with mild chronic small vessel ischemic changes.? The gonzalez-white matter junction appears preserved.? There is intracranial internal carotid artery atherosclerosis.? ? Skull and face:? Calvarium and visualized facial bones appear intact, without suspicious lesions.? ? Sinuses:? Visualized sinuses and mastoids are clear.? ? IMPRESSION:? ? 1.? No acute intracranial abnormality. ? 2. Mild cerebral volume loss and chronic white matter small vessel ischemic changes. ? ? Dictated by: Ad Velasco M.D. on 04/15/2023 at 21:35 ? ? Approved by: Ad Velasco M.D. on 04/15/2023 at 21:38 ? MDM Narrative Medical decision making narrative: Patient is a 77-year-old male who presents today after this syncopal episode. He took to trazodone and then stood up and fell to the ground. No focal deficits he has been here now for about 3 hours. Very pleasant. Blood work has been reviewed with clinical significant abnormalities imaging has been reviewed without any obvious finding. I suspect that patient's symptoms are secondary to combination of taking 2 new medications including trazodone and then standing up. He was able to stand and move some with a walker. At this time there is no need for any sort of obvious admission. Patient likely fell secondary to medication. Patient has a difficult time getting around needs a walker and needs help getting into the house. His brother is able to help him but this patient states it might need to people. He stayed in the ED until it was low morning and light so that he could get into the house safely. Other options such as feel less intact see were offered ultimately waited for brother to come. Discharge Plan Departure Patient Disposition: Home Clinical Impression: Fall, Adverse drug reaction Instructions: How to Prevent Falls, DI for Adverse Drug Reaction -- Other Activity Restrictions/Additional Instructions: *You have been diagnosed with drug reaction *What to do: You likely nearly passed out due to trazodone alcohol. I recommend you do not take trazodone again. *Continue to take medications as directed *Follow up with your primary care provider in 2-3 days or call [phone] *Return to ER if you should have increasing weakness falls fevers confusion or any new, worsening or concerning symptoms Prescriptions: No Action albuterol sulfate 90 mcg/actuation HFA aerosol inhaler See Rx Instructions .ROUTE .COMPLEX Qty: 8.5 3RF Dose Instruction: INHALE 2 PUFFS BY MOUTH EVERY 6 HOURS NEEDED FOR SHORTNESS OF BREATH OR WHEEZING Rx Instructions: INHALE 2 PUFFS BY MOUTH EVERY 6 HOURS NEEDED FOR SHORTNESS OF BREATH OR WHEEZING (DME) blood pressure cuff Qty: 1 0RF Rx Instructions: As directed Symbicort 160-4.5 mcg/actuation HFA aerosol inhaler 1 puff INHALATION DAILY PRN (Reason: copd) Qty: 10.2 3RF Combivent Respimat 20-100 mcg/actuation mist 1 puff INHALATION QID PRN atorvastatin 10 mg tablet 10 mg PO DAILY Qty: 90 3RF Rx Instructions: Take one tablet by mouth daily sodium,potassium,mag sulfates [Suprep Bowel Prep Kit] 17.5-3.13-1.6 gram recon soln See Rx Instructions PO .COMPLEX Qty: 354 0RF Rx Instructions: take as directed by Physician Referrals: Reynaldo Carter DO [Primary Care Provider] - Stand Alone Forms: Patient Portal/API
--- NOTE | 2023-04-16 00:52 | PC.NURSE ---
Pt with recent nuero dx r/t balance and coordination, using walker at baseline, was able to get oob and amb with walker in his room.
--- NOTE | 2023-04-16 01:40 | PC.NURSE ---
Pt laying in bed and interacts with this RN appropriately. Pt is A&Ox4 and updated on the plan to have pt stay in ED until his brother can come at 0600 to bring him home. Pt is agreeable to plan and asked to have lights turned down. Pt has no needs at this moment. Respirations are regular and unlabored and skin is warm, pink and dry.
== END 2023-04-16 06:36 | disposition home or self-care (01) ==
PROVIDERS: Emergency Provider Emergency Medicine; Family Provider Family Medicine; PCP Family Medicine
DX: R55 Syncope and collapse (principal); T43.215A Adverse effect of selective serotonin and norepinephrine reuptake inhibitors, initial encounter
CPT/HCPCS: 70450; 71045; 72125; 80053; 80320; 82550; 83690; 83735; 84484; 85025; 85610; 85730; 93005; 99284

== ENCOUNTER → 2023-06-10 13:38 | Outpatient (CLI) | payer MEDICARE, OTHER, SELFPAY ==
--- NOTE | 2023-06-10 13:40 | DI.RAD.S_ITS ---
PROCEDURE: XR KNEE RT 3V INDICATIONS: Traumatic right foot injury, midfoot pain TECHNIQUE: 3 views of the knee were acquired. COMPARISON: None. FINDINGS: Bones: No fractures or dislocations. No suspicious bony lesions. Soft tissues: No joint effusion. No suspicious soft tissue calcifications. IMPRESSION: No acute bony abnormality or significant effusion. Dictated by: Michelle Brower MD, PhD on 06/10/2023 at 14:15 Approved by: Michelle Brower MD, PhD on 06/10/2023 at 14:16
--- NOTE | 2023-06-10 13:40 | DI.RAD.S_ITS ---
PROCEDURE: XR FOOT RT MIN 3V INDICATIONS: Traumatic right foot injury, midfoot pain TECHNIQUE: 5 total views of the foot were acquired, including additional dedicated images of ankle. COMPARISON: [facility], CR, XR KNEE RT 3V, 06/10/2023, 13:46. FINDINGS: Bones: There is a mildly displaced fracture seen involving the distal fibula, at and involving the level of the syndesmosis. The syndesmosis appears minimally widened. There is minimal widening of the ankle mortise. The talar dome demonstrates no ameya abnormality. Age-appropriate bony degenerative changes are seen. Plantar and Achilles calcaneal spurs are seen. Soft tissues: Soft tissue swelling is seen. IMPRESSION: Mildly displaced distal fibular fracture, with associated minimal widening of the syndesmosis and ankle mortise. Dictated by: Iván Briggs M.D. on 06/10/2023 at 13:30 Approved by: Iván Briggs M.D. on 06/10/2023 at 13:33
== END ==
PROVIDERS: Family Provider Family Medicine; PCP Family Medicine; Referring Provider Family Medicine; Visit Provider Family Medicine
DX: S82.831A Other fracture of upper and lower end of right fibula, initial encounter for closed fracture (principal); M79.671 Pain in right foot; M25.561 Pain in right knee; X58.XXXA Exposure to other specified factors, initial encounter
CPT/HCPCS: 73562; 73630

== ENCOUNTER 2023-07-29 08:11 | Day surgery (SDC) | payer MEDICARE, OTHER, SELFPAY ==
--- NOTE | 2023-07-29 | PATH_ITS ---
[facility] Accession Number: [id number] No. of containers..05 Tissue . 01 Material submitted: . PART A: cecum - CECAL POLYP PART B: colon - ASCENDING POLYPS PART C: colon - TRANSVERSE POLYPS PART D: colon - DESCENDING POLYPS PART E: rectum - RECTAL POLYPS . 01 Diagnosis: A. Cecum, Polyp: Tubular adenoma. . B. Ascending Colon, Polyps: Tubular adenomas. . C. Transverse Colon, Polyps: Tubular adenomas. . D. Descending Colon, Polyps: Tubular adenomas. . E. Rectum, Polyps: Tubular adenoma, two fragments. Hyperplastic polyp, one fragment. [facility] 08/04/2023 1713 Local . 01 Electronically signed: . Morena Truong MD, Pathologist NPI- [id number] . 01 Gross description: . Part A: CECAL POLYP: Received in formalin is multiple fragment(s) of neil, soft tissue measuring 2.0 x 1.0 x 0.2 cm in aggregate submitted entirely in 1 cassette(s) Part B: ASCENDING POLYPS: Received in formalin is multiple fragment(s) of neil, soft tissue measuring 1.5 x 0.5 x 0.3 cm in aggregate submitted entirely in 1 cassette(s) Part C: TRANSVERSE POLYPS : Received in formalin is multiple fragment(s) of neil, soft tissue measuring 2.0 x 0.5 x 0.3 cm in aggregate submitted entirely in 1 cassette(s) Part D: DESCENDING POLYPS: Received in formalin is multiple fragment(s) of neil, soft tissue measuring 2.0 x 1.0 x 0.3 cm in aggregate submitted entirely in 1 cassette(s) Part E: RECTAL POLYPS: Received in formalin is multiple fragment(s) of neil, soft tissue measuring 1.2 x 0.5 x 0.3 cm in aggregate submitted entirely in 1 cassette(s) /AAY 07/30/2023 0442 Local . 01 Pathologist provided ICD-10: D12.0, D12.2, D12.3, D12.4, D12.8 . 01 CPT . O30818, H48311, O47741, I90040, U09460 Specimen Comment: A courtesy copy of this report has been sent to [phone] Performed at: 01 [facility] [address] [place] [address] [id number] MD Ad Rolle MD Phone: [phone]
[2023-07-29 08:22] VITALS: BP 133/72; PULSE 82; RESP 24; TEMP 36.4; O2SAT 93; BMI 26.4
--- NOTE | 2023-07-29 08:30 | P.HP_ITS ---
History of Present Illness History of Present Illness Date Patient Seen: 07/29/23 Time Patient Seen: 08:30 Chief complaint: SDC Narrative: Yovany is a 78-year-old man with weight loss of unknown etiology. He had an attempted colonoscopy in March but his prep was inadequate. He has had multiple polyps removed in the past. He had a CT scan that showed diverticulosis. He has a progressing neurological disorder of unclear etiology and has seen a neurologist. [facility] Medical History Right knee pain Right foot pain Colon polyps Balance disorder Atrial flutter COPD (chronic obstructive pulmonary disease) Weight loss Runny nose (11/2019) Numbness Bilateral hip pain (11/2019) Hyperactive gag reflex (11/2019) Food aversion (11/2019) Mixed hyperlipidemia Seasonal allergies Perioral dermatitis Red eye Hypertension Social History household members: other Smoking Status: Current every day smoker Tobacco: How many years used: 48 second hand exposure: Yes (Dad smoked) alcohol intake: current substance use type: marijuana Meds Home Medications and Allergies Home Medications Medication Instructions Recorded Confirmed Type ipratropium 20 mcg-albuterol 100 1 puff inhalation QID PRN 11/29/18 07/16/23 History mcg/actuation mist for inhalation (Combivent Respimat) blood pressure cuff #1 ea 02/22/20 07/16/23 Rx budesonide-formoterol HFA 160 1 puff inhalation DAILY PRN copd 03/19/21 07/16/23 Rx mcg-4.5 mcg/actuation aerosol #10.2 grams inhaler (Symbicort) atorvastatin 10 mg tablet 10 mg PO DAILY #90 tabs 07/31/22 07/16/23 Rx albuterol sulfate 90 mcg/actuation See Rx Instructions .Route 05/18/23 07/16/23 Rx aerosol inhaler .COMPLEX #8.5 grams peg 3350-sod sulf,[id number] 1,000 ml PO DIRECTED #2,000 mL 07/15/23 07/16/23 Rx 178.7-7.3-0.5-1.12-0.9 gram oral soln (Suflave) Allergies Allergy/AdvReac Type Severity Reaction Status Date / Time pollen extracts Allergy Severe Difficulty Verified 07/16/23 14:39 Breathing cat dander Allergy Intermediate asthma Verified 07/16/23 14:39 yellow jacket Allergy Intermediate rash on Uncoded 07/16/23 14:39 neck Exam Const General: No acute distress Resp Effort & Inspection: normal respiratory effort Assessment & Plan Assessment and plan (1) History of colon polyps: Status: Acute Plan We reviewed the risks and benefits of colonoscopy for history of colon polyps and he would like to proceed.
[2023-07-29] MEDS: LACTATED RINGERS 1,000 ML 150 ML IV ×2 (08:38→09:39)
--- NOTE | 2023-07-29 09:57 | PM.OP.COLON ---
Operative Date/Time/Diagnoses Date of procedure: 07/29/23 Time of procedure: 09:57 Pre-op diagnosis: History of colon polyps Post-op diagnosis: same Procedure & Clinicians Study performed: Colonoscopy Same procedure as scheduled: Yes Surgeon: Cj Covarrubias Procedure Notes Procedure in detail: Surgeon: Cj Covarrubias MD Anesthesia: Elly Villatoro CRNA Procedure: The patient was brought to the endoscopy suite, placed in left lateral decubitus position. The patient was connected to monitoring devices. A time-out was performed. Sedation was administered. Once the patient was adequately sedated, a digital rectal exam was performed and was normal. The scope was then inserted and advanced to the cecum where the appendiceal orifice was identified and photographed. The terminal ileum was intubated and no abnormalities were seen. There was a 1 cm cecal polyp removed with a cold snare. There were 2 ascending polyps around 7 mm, both removed with cold snare and sent together. There were 4 polyps in the transverse colon, each about 7 mm and removed with cold snare and sent together. There were 5 7 mm polyps in the descending colon, each removed with a cold snare and sent together. There were 2 7 mm polyps in the rectum each removed with cold snare and sent together. The scope was retroflexed in the rectum. No other abnormalities were seen. The scope was straightened and removed. The patient was awakened and brought to recovery. Scope withdrawal time: 47 minutes Sedation time: 62 minutes EBL: 10 mL Findings: A 1 cm cecal polyp, 2 subcentimeter ascending colon polyps, 3 subcentimeter transverse colon polyps, 5 subcentimeter descending colon polyps and 2 subcentimeter rectal polyps Post-procedure Disposition: PACU
[2023-07-29 10:00] VITALS: BP 93/67; PULSE 82; RESP 14; TEMP 36.3; O2SAT 99
[2023-07-29 10:05] VITALS: BP 102/75; PULSE 85; RESP 17; O2SAT 99
[2023-07-29 10:10] VITALS: BP 109/79; PULSE 82; RESP 17; O2SAT 97
[2023-07-29 10:20] VITALS: BP 133/78; PULSE 83; RESP 14; TEMP 36.6; O2SAT 97
== END 2023-07-29 10:20 | disposition home or self-care (01) ==
PROVIDERS: Family Provider Family Medicine; PCP Family Medicine; Referring Provider Surgery; Visit Provider Surgery
PROC: 0DJD8ZZ Inspection of Lower Intestinal Tract, Via Natural or Artificial Opening Endoscopic (ICD-10-PCS; CPT 45378; principal; 2023-07-29 09:15)
DX: Z12.11 Encounter for screening for malignant neoplasm of colon (principal); Z86.010 Personal history of colon polyps; D12.0 Benign neoplasm of cecum; D12.2 Benign neoplasm of ascending colon; D12.3 Benign neoplasm of transverse colon; D12.4 Benign neoplasm of descending colon; D12.8 Benign neoplasm of rectum
CPT/HCPCS: 45385; J2704

== ENCOUNTER → 2023-08-21 11:45 | Outpatient (CLI) | payer MEDICARE, OTHER, SELFPAY ==
--- NOTE | 2023-08-21 | DI.CT.S_ITS ---
PROCEDURE: CT CHEST WO CON INDICATIONS: Pulmonary Nodule TECHNIQUE: Noncontrast 5 mm thick sections acquired from the pulmonary apices to the posterior costophrenic angles. 1 mm lung window, 5 mm thick coronal and sagittal and 7 mm axial MIP reformats were then acquired. For radiation dose reduction, the following was used: automated exposure control, adjustment of mA and/or kV according to patient size. COMPARISON: None. FINDINGS: Image quality: Diagnostic. Lower Neck: No enlarged lymph nodes. Thyroid: No thyroid nodules which require sonographic follow up, per consensus guidelines. Axillae: No enlarged lymph nodes. Chest Wall: Unremarkable. Bones: The old healed rib fractures are noted. Lungs and Pleura: No pneumothorax or pleural effusions. No consolidation or suspicious nodules. There is bandlike scarring or atelectasis in the lingula. A benign calcified granuloma is seen in the right upper lobe. Heart: Heart size is normal. No pericardial effusion. Mild coronary artery calcifications. Thoracic Vessels: The aorta and pulmonary arteries demonstrate normal size. Mediastinum and Natalie: No enlarged lymph nodes. Esophagus: No wall thickening. No hiatal hernia. Upper Abdomen: Simple appearing cyst is seen at the superior pole of the left kidney. Visualized upper abdomen solid organs and bowel loops appear normal. IMPRESSION: No acute abnormality is seen in the chest. No suspicious pulmonary nodule. Approved by: Riley Sylvester M.D. on 08/22/2023 at 13:33
== END ==
PROVIDERS: Family Provider Family Medicine; PCP Family Medicine; Referring Provider Neuromusculoskeletal Medicine, Sports Medicine; Visit Provider Neuromusculoskeletal Medicine, Sports Medicine
DX: G54.9 Nerve root and plexus disorder, unspecified (principal); R79.9 Abnormal finding of blood chemistry, unspecified; R91.1 Solitary pulmonary nodule
CPT/HCPCS: 71250

== ENCOUNTER 2024-02-14 13:03 | Day surgery (SDC) | payer MEDICARE, OTHER, SELFPAY ==
[2024-02-14] VITALS (7 sets, daily range): BP systolic 117–137; BP diastolic 74–88; PULSE 80–97; RESP 14–18; TEMP 36.3–37; O2SAT 92–97
--- NOTE | 2024-02-14 | PATH_ITS ---
[facility] Accession Number: [id number] No. of containers..03 Tissue . 01 Material submitted: . PART A: duodenum - DUODENUM BIOPSY PART B: duodenum bulb - DUODENAL BULB PART C: gastrointestinal site - ANTRUM BIOPSY . 01 Diagnosis: Part A: DUODENUM BIOPSY: Duodenal mucosa with mild reactive changes suggestive of peptic duodenitis. No active inflammation and no evidence of celiac disease. . Part B: DUODENAL BULB: Duodenal mucosa with mild reactive changes suggestive of peptic duodenitis. No active inflammation and no evidence of celiac disease. . Part C: ANTRUM BIOPSY: Gastric mucosa with mild chronic inflammation. No Helicobacter organisms identified. No intestinal metaplasia, dysplasia, or malignancy identified. [facility] 02/17/20241643 Local . 01 Electronically signed: . Ad Rolle MD, Pathologist NPI- [id number] . 01 Gross description: . Part A: DUODENUM BIOPSY: Received in formalin are 2 fragment(s) of neil, soft tissue measuring 0.2 x 0.2 x 0.2 cm to 0.3 x 0.3 x 0.2 cm submitted entirely in 1 cassette(s) . Part B: DUODENAL BULB: Received in formalin are 2 fragment(s) of neil, soft tissue measuring 0.1 x 0.1 x 0.1 cm to 0.3 x 0.2 x 0.2 cm submitted entirely in 1 cassette(s) . Part C: ANTRUM BIOPSY: Received in formalin are 4 fragment(s) of neil, soft tissue measuring 0.1 x 0.1 x 0.1 cm to 0.5 x 0.3 x 0.2 cm submitted entirely in 1 cassette(s) /DANIEL 02/17/20241643 Local . 01 Microscopic: . Part C: ANTRUM BIOPSY: An immunohistochemical stain was performed to evaluate for Helicobacter organisms and is negative. The control stains appropriately. * This test was developed and its performance characteristics determined by [employer]. It has not been cleared or approved by the U.[place]. Food and Drug Administration. The FDA has determined that such clearance or approval is not necessary. This test is used for clinical purposes. It should not be regarded as investigational or for research. . 01 Pathologist provided ICD-10: K29.50, K29.80 . 01 CPT . 195275, 996873, 052673, [id number] Specimen Comment: A courtesy copy of this report has been sent to [phone] Performed at: [address] [address], [place], [place] [id number] MD Ad Rolle MD Phone: [phone]
[2024-02-14] MEDS: LACTATED RINGERS 1,000 ML 42 ML IV (13:48)
--- NOTE | 2024-02-14 14:22 | P.HP_ITS ---
History of Present Illness History of Present Illness Date Patient Seen: 02/14/24 Time Patient Seen: 14:22 Chief complaint: SDC Narrative: Yovany is a 78-year-old man with neuropathy. One of his specialists recommended an EGD to rule in or out celiac disease because he had a few positive markers on some blood work. 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) Food aversion (11/2019) Mixed hyperlipidemia Seasonal allergies Perioral dermatitis Red eye Hypertension Social History household members: none Smoking Status: Current every day smoker Tobacco: How many years used: 48 second hand exposure: Yes (Dad smoked) alcohol intake: current substance use type: marijuana Meds Home Medications and Allergies Home Medications Medication Instructions Recorded Confirmed Type blood pressure cuff #1 ea 02/22/20 02/01/24 Rx atorvastatin 10 mg tablet 10 mg PO DAILY #90 tabs 09/16/23 02/14/24 Rx albuterol sulfate 90 mcg/actuation 2 puff inhalation PRN PRN sob 02/14/24 02/14/24 History aerosol inhaler Allergies Allergy/AdvReac Type Severity Reaction Status Date / Time pollen extracts Allergy Severe Difficulty Verified 02/14/24 13:30 Breathing cat dander Allergy Intermediate asthma Verified 02/14/24 13:30 yellow jacket Allergy Intermediate rash on Uncoded 07/30/23 13:18 neck Exam Vital Signs (past 8 hours): - 02/14/24 13:41 Temperature 97.8 F Pulse Rate 97 H Respiratory Rate 18 Blood Pressure 137/83 Pulse Oximetry 97 Oxygen Delivery Method Room Air Oxygen Delivery Method Room Air Const General: No acute distress Resp Effort & Inspection: normal respiratory effort Assessment & Plan Assessment and plan (1) Neuropathy: Status: Acute Plan Proceed with esophagogastroduodenoscopy. We will perform biopsies from the duodenum to rule in or out celiac disease. Time-Based Coding :: [TOTAL MINUTES] spent with patient and on the chart (including review of chart, obtaining history, exam, reviewing outside data, placing orders, documenting exam and treatment plan, and counseling patient) on [DATE].
--- NOTE | 2024-02-14 14:49 | PM.OP.EGD ---
Operative Date/Time/Diagnoses Date of procedure: 02/14/24 Time of procedure: 14:50 Pre-op diagnosis: Rule out celiac disease Post-op diagnosis: same Procedure & Clinicians Study performed: Esophagogastroduodenoscopy Same procedure as scheduled: Yes Surgeon: Cj Covarrubias Procedure Notes Procedure in detail: Surgeon: Cj Covarrubias MD Anesthesia: Yadi Tabor MD A timeout was performed. A bite blocked was placed. The patient was positioned in the left lateral decubitus position. Anesthesia was administered. The endoscope was inserted through the bite block and passed through the esophagus and stomach and into the duodenum. The mucosa of the second portion of the duodenal appeared normal. Random biopsies were taken with cold forceps. The scope was withdrawn into the duodenal bulb and 2 ulcers with fibrinous base were noted in the duodenal bulb. There was no evidence of active or recent bleeding. More biopsies were taken with cold forceps from the duodenal bulb. The scope was withdrawn into the stomach. There was mild antritis and random biopsies were taken from the antrum with cold forceps. The rest of the stomach was normal. The scope was retroflexed and no abnormalities were seen. The scope was withdrawn into the esophagus and no abnormalities were seen in the distal esophagus. The remainder of the esophagus was normal. The scope was withdrawn. The patient was awakened and brought to recovery. Sedation time: 9 minutes Findings: To ulcers in the duodenal bulb with fibrinous bases, mild inflammation of the duodenal bulb and antrum Post-procedure Disposition: PACU
[2024-02-14] MEDS: ALBUTEROL/IPRATROPIUM 3 ML AMPUL INH (15:19)
--- NOTE | 2024-02-14 15:25 | SUR.PHASEI ---
1521 - Reported off to Aidan RN. Patient transported to phase 2 to receive nebulizer. Left phase 1 in stable condition.
== END 2024-02-14 15:45 | disposition home or self-care (01) ==
PROVIDERS: Family Provider Family Medicine; PCP Family Medicine; Referring Provider Surgery; Visit Provider Surgery
PROC: 0DJ08ZZ Inspection of Upper Intestinal Tract, Via Natural or Artificial Opening Endoscopic (ICD-10-PCS; CPT 43239; principal; 2024-02-14 14:00)
DX: R89.4 Abnormal immunological findings in specimens from other organs, systems and tissues (principal); K29.80 Duodenitis without bleeding; G62.9 Polyneuropathy, unspecified; K29.50 Unspecified chronic gastritis without bleeding
CPT/HCPCS: 43239; J2704

== ENCOUNTER → 2024-06-16 10:36 | Outpatient (CLI) | payer MEDICARE, OTHER, SELFPAY ==
[2024-06-16 12:34] LABS: Add Manual Diff / Slide Review NO; Basophils Absolute Auto 0 /uL (0-100); Basophils Percent Auto 0.3 % (0-2); Eosinophils Absolute Auto 100 /uL (0-450); Eosinophils Percent Auto 1.1 % (2-4); Hemoglobin 15.9 g/dL (13.5-17.5); Lymphocytes Absolute Auto 1200 /uL (1100-4500); Lymphocytes Percent Auto 11.6 % (25-40); Mean Corpuscular HGB Conc 33.8 % (30-36); Mean Corpuscular Hemoglobin 32.7 PG (26-34); Mean Corpuscular Volume 96.6 fL (80-100); Monocytes Absolute Auto 900 /uL (0-900); Monocytes Percent Auto 8.4 % (3-14); Neutrophils Absolute Auto 7900 /uL (1500-7000); Neutrophils Percent Auto 78.6 % (50-75); Platelet Count 172 X10^3/uL (150-400); Red Blood Cell Count 4.86 X10^6/uL (4.5-5.9); Red Cell Distribution Width 12.7 % (11.6-14.8); White Blood Cell Count 10.1 X10^3/uL (4.5-11.0)
[2024-06-16 12:50] LABS: HEMOLYSIS < 15 (0-50); Iron 154 ug/dL (49-181)
[2024-06-16 12:51] LABS: Alanine Aminotransferase 28 IU/L (<50); Albumin 3.8 g/dL (3.5-5.0); Albumin Globulin Ratio 1.2 (1.0-2.8); Alkaline Phosphatase 109 U/L (38-126); Aspartate Aminotransferase 52 IU/L (17-59); BUN Creatinine Ratio 31.4 (6-22); Bilirubin Total 0.8 mg/dL (0.2-1.3); Blood Urea Nitrogen 16 mg/dL (9-20); Calcium 9.2 mg/dL (8.4-10.2); Carbon Dioxide 33 mmol/L (22-32); Chloride 101 mmol/L (98-107); Estimated Glomerular Filt Rate > 60 mL/min (>60); Globulin 3.3 g/dL (1.7-4.1); Glucose 104 mg/dL (80-110); HEMOLYSIS 16 (0-50); Potassium 4.1 mmol/L (3.4-5.1); Sodium 138 mmol/L (137-145); Total Protein 7.1 g/dL (6.3-8.2)
[2024-06-16 13:02] LABS: Percent Iron Saturation 74 % (20-50); Total Iron Binding Capacity 209 ug/dL (261-462); Transferrin 207 mg/dL (206-381)
[2024-06-16 13:21] LABS: Prostate Specific Antigen Scrn 1.38 ng/mL (0.1-4.0)
[2024-06-16 13:40] LABS: Vitamin B12 728 pg/mL (239-931)
== END ==
LOC: LAB 10:37
PROVIDERS: Family Provider Family Medicine; PCP Family Medicine; Referring Provider Family Medicine; Visit Provider Family Medicine
DX: Z12.5 Encounter for screening for malignant neoplasm of prostate (principal); I10 Essential (primary) hypertension; E78.2 Mixed hyperlipidemia; I48.92 Unspecified atrial flutter; D64.9 Anemia, unspecified; J41.0 Simple chronic bronchitis; I48.3 Typical atrial flutter
CPT/HCPCS: 36415; 80053; 82607; 83540; 83550; 84443; 85025; G0103